=== PATIENT | female | born 1960 | race Caucasian/White ===

== ENCOUNTER 2018-10-27 23:14 | Observation (INO) ==
[2018-10-27] MEDS ORDERED: 0.9 % Sodium Chloride 1,000 ML IVC ONE (23:57)
--- NOTE | 2018-10-28 00:22 | Emergency Department Note ---
Disposition Clinical Impression: Hypercalcemia, Hyponatremia, Tobacco abuse Disposition: Admitted As Inpatient Condition: Fair Referrals: NONE,PCP [Non-Partnered Physician] - Forms: ED Satisfaction Letter Time of Disposition: 02:39 General Adult HPI - General Chief complaint: ED Recheck/Abnormal Lab/Rx Stated complaint: sent by PCP for abnormal labs Time Seen by Provider: 10/27/18 23:55 Source: patient Mode of arrival: ambulatory Limitations: no limitations Nursing Notes Reviewed: Yes Vital Signs Reviewed: Yes - History of Present Illness HPI Narrative: 58-year-old female persists for evaluation of abnormal labs. Patient states that her calcium was elevated as well as her sodium being low. Patient had routine labs obtained by her PCP. Patient was told to go to the ER. Patient states that over the past 3 days she has had generalized fatigue. States that today she is actually feeling better after receiving a B12 shot. Patient denies any chest pain or shortness of breath. No abdominal pain. States she does have chronic constipation. Patient also has chronic bilateral lower rib pain. States there is no recent change in medications. Patient does state that she has had unintentional weight loss of 23 pounds over the past couple months. No fevers. Patient is on hydrochlorothiazide and has been taking chronically for years. Pain Scale: 0 - Related Data Allergies Allergy/AdvReac Type Severity Reaction Status Date / Time No Known Allergies Allergy Verified 10/27/18 23:17 All systems ED: reviewed and negative except as stated. Cardiovascular: Denies: chest pain Respiratory: Denies: cough, dyspnea Gastrointestinal: Denies: abdominal pain, nausea, vomiting Past Medical History - Past Medical History Source: patient Medical history: Reports: diabetes, GERD, hypertension Psychiatric history: Reports: anxiety, panic disorder - Social History Smoking Status: Current every day smoker Alcohol use: Reports: none Drug use: Reports: none Physical Exam - General Limitations: no limitations General appearance: alert, in no apparent distress - Head Head exam: atraumatic, normocephalic, normal inspection - Eye Eye exam: Present: normal appearance, PERRL, EOMI - ENT ENT exam: normal exam, normal oropharynx, mucous membranes moist - Neck Neck exam: Present: normal inspection - Chest Chest inspection: Present: normal inspection. Absent: symmetric chest wall rise - Respiratory Respiratory exam: Present: normal lung sounds bilaterally. Absent: respiratory distress - Cardiovascular Cardiovascular exam: Present: regular rate, normal rhythm. Absent: normal heart sounds - Abdominal Exam Abdominal exam: Present: soft, Non-Tender - Extremities Exam Extremities exam: Present: normal inspection. Absent: pedal edema - Back Exam Back exam: Present: normal inspection - Neurological Exam Neurological exam: Present: alert, oriented X3, CN II-XII intact - Skin Skin exam: Present: warm, dry, intact, normal color Course Course Narrative: Patient seen and examined. Patient appears be no acute distress. Will obtain basic labs including EKG as well as a chest x-ray. Disposition pending. - Reevaluation(s) Reevaluation #1: Patient seen and examined. Patient's ED course discussed. Time: 01:37 Reevaluation #2: Ultimately the patient stated that she wanted to go home. Patient is receiving a second liter of fluids. Patient case was discussed with the hospitalist who also agree that the patient should be admitted for continued evaluation and further workup for the hypercalcemia. Patient is not symptomatic but it is notably high. Patient ultimately is agreeable with admission Time: 02:36 Vital Signs Temperature 98.6 F 10/27/18 23:17 Pulse Rate 102 10/27/18 23:17 Respiratory Rate 20 10/27/18 23:17 Blood Pressure 179/91 10/27/18 23:17 O2 Sat by Pulse Oximetry 93 10/27/18 23:17 Temperature 98.6 F 10/27/18 23:17 Pulse Rate 108 10/28/18 00:37 Respiratory Rate 20 10/28/18 00:37 Blood Pressure 170/89 10/28/18 00:37 O2 Sat by Pulse Oximetry 100 10/28/18 00:37 Oxygen Delivery Oxygen Delivery Room Air Medical Decision Making - [facility] Narrative Medical decision making narrative: Patient presented for abnormal labs. Noted to be hypercalcemic. Patient is fluid resuscitated with IV crystalloid. Patient is on hydrochlorothiazide does have mild hyponatremia as well. Patient did get a baseline screening chest x- ray given concerns of possible malignancy cause of her hypercalcemia given her unintentional weight loss. Patient otherwise has been asymptomatic. Planing of constipation is been there for months. Patient EKG shows no acute abnormaliti es. Patient wanted to go home however given the elevated calcium level did recommend admission and consult with the hospitalists. Patient is agreeable with admission. - Lab Data Lab results reviewed: Yes I reviewed the patient's lab results. Result diagrams: 10/28/18 00:16 10/28/18 00:16 Lab Results 10/28/18 10/28/18 10/28/18 Range/Units 00:16 00:16 00:16 WBC 8.8 (4.3-11.1) K/mcL RBC 4.47 (3.82-4.97) M/mcL Hgb 14.0 (11.5-15.4) g/dL Hct 40.1 (35.3-44.9) % MCV 89.7 (83.0-100.0) fL MCH 31.3 (28.0-33.3) pg MCHC 34.9 (31.6-35.5) g/dL RDW 12.7 (11.5-14.5) % Plt Count 345 (140-400) K/mcL MPV 9.7 (9.4-12.4) fL Immature Gran % 0.3 (0-4) % Seg Neutrophils % 82.7 % Lymphocytes % 11.5 % Monocytes % 5.4 % Eosinophils % 0.0 % Basophils % 0.1 % Neutrophils # 7.3 (1.6-8.9) K/mcL Lymphocytes # 1.0 (0.6-4.6) K/mcL Monocytes # 0.5 (0.0-1.3) K/mcL Eosinophils # 0.0 (0.0-0.6) K/mcL Basophils # 0.0 (0.0-0.2) K/mcL Immature Plt Fraction 1.7 (1.1-6.1) % Sodium 131 L (136-145) mEq/L Potassium 3.2 L (3.5-5.1) mEq/L Chloride 96 L (98-107) mEq/L Carbon Dioxide 26 (23-29) mEq/L BUN 16 (6-20) mg/dL Creatinine 0.69 (0.60-1.20) mg/dL Est GFR ( Amer) > 60 (> 60) Est GFR (Non-Af Amer) > 60 (> 60) BUN/Creatinine Ratio 23 (6-26) Glucose 155 H (70-105) mg/dL Calculated Osmolality 276 L (280-300) Calcium 13.2 H* (8.6-10.3) mg/dL Venous Ioniz Calcium (1.15-1.35) mmol/L Magnesium 2.0 (1.6-2.6) mg/dL Total Bilirubin 0.6 (0.3-1.0) mg/dL AST 87 H (13-39) Units/L ALT 28 (7-52) Units/L Alkaline Phosphatase 242 H (34-104) Units/L Serum Total Protein 7.4 (6.4-8.9) g/dL Albumin 4.2 (3.5-5.7) g/dL Globulin 3.2 (2.4-3.5) g/dL Albumin/Globulin Ratio 1.3 (1.1-2.2) PTH Intact (10.0-65.0) pg/ml Urine Color (Yellow) Urine Clarity (Clear) Urine pH (5.0-8.0) pH Units Ur Specific [employer] (1.010-1.025) Urine Protein (Neg-Trace) mg/dL Urine Glucose (UA) (Normal) mg/dL Urine Ketones (Negative) mg/dL Urine Blood (Negative) Urine Nitrite (Negative) Urine Bilirubin (Negative) Urine Urobilinogen (Normal) mg/dL Ur Leukocyte Esterase (Negative) Urine Microscopic WBC (0-3) per hpf Ur Squamous Epith Cells (None-Few) per lpf Urine Bacteria (None-Few) per hpf Hyaline Casts (None-Few) per lpf Ur Culture Indicated? (NO) 10/28/18 10/28/18 10/28/18 Range/Units 00:16 00:36 01:41 WBC (4.3-11.1) K/mcL RBC (3.82-4.97) M/mcL Hgb (11.5-15.4) g/dL Hct (35.3-44.9) % MCV (83.0-100.0) fL MCH (28.0-33.3) pg MCHC (31.6-35.5) g/dL RDW (11.5-14.5) % Plt Count (140-400) K/mcL MPV (9.4-12.4) fL Immature Gran % (0-4) % Seg Neutrophils % % Lymphocytes % % Monocytes % % Eosinophils % % Basophils % % Neutrophils # (1.6-8.9) K/mcL Lymphocytes # (0.6-4.6) K/mcL Monocytes # (0.0-1.3) K/mcL Eosinophils # (0.0-0.6) K/mcL Basophils # (0.0-0.2) K/mcL Immature Plt Fraction (1.1-6.1) % Sodium (136-145) mEq/L Potassium (3.5-5.1) mEq/L Chloride (98-107) mEq/L Carbon Dioxide (23-29) mEq/L BUN (6-20) mg/dL Creatinine (0.60-1.20) mg/dL Est GFR ( Amer) (> 60) Est GFR (Non-Af Amer) (> 60) BUN/Creatinine Ratio (6-26) Glucose (70-105) mg/dL Calculated Osmolality (280-300) Calcium (8.6-10.3) mg/dL Venous Ioniz Calcium 1.64 H (1.15-1.35) mmol/L Magnesium (1.6-2.6) mg/dL Total Bilirubin (0.3-1.0) mg/dL AST (13-39) Units/L ALT (7-52) Units/L Alkaline Phosphatase (34-104) Units/L Serum Total Protein (6.4-8.9) g/dL Albumin (3.5-5.7) g/dL Globulin (2.4-3.5) g/dL Albumin/Globulin Ratio (1.1-2.2) PTH Intact 3.0 L (10.0-65.0) pg/ml Urine Color Yellow (Yellow) Urine Clarity Cloudy A (Clear) Urine pH 6.0 (5.0-8.0) pH Units Ur Specific [employer] 1.011 (1.010-1.025) Urine Protein Negative (Neg-Trace) mg/dL Urine Glucose (UA) Normal (Normal) mg/dL Urine Ketones Negative (Negative) mg/dL Urine Blood Negative (Negative) Urine Nitrite Negative (Negative) Urine Bilirubin Negative (Negative) Urine Urobilinogen Normal (Normal) mg/dL Ur Leukocyte Esterase Negative (Negative) Urine Microscopic WBC 0-3 (0-3) per hpf Ur Squamous Epith Cells Many H (None-Few) per lpf Urine Bacteria None Seen (None-Few) per hpf Hyaline Casts None Seen (None-Few) per lpf Ur Culture Indicated? NO (NO) - Radiology Data Radiology results reviewed: Yes I reviewed the patient's radiology results. Chest X-Ray 10/28/18 00:19 IMPRESSION: No evidence of acute cardiopulmonary disease. D/ / Gelacio Coyne MD / Gelacio Coyne MD Interpreting Provider: Gelacio Coyne MD - EKG Data EKG #1 EKG attestation: Yes I reviewed and interpreted this EKG. EKG shows normal: sinus rhythm Rate: normal Rhythm: NSR [place]/QRS: left axis deviation, RBBB T wave inversions noted in: III, aVR, v1, v2 Interpretation: no acute changes, nonspecific ST-T wave changes S.B.A.R. - S.B.A.R. Situation: Demographics Background: Presenting Complaint Assessment: Vital Signs, Course and respsone to treatment, Patient/Family Expectation Recommendation: Barrier(s) to disposition, Recommendation based on pending studies, treatments, or consults S.B.A.R. Report Given to: Dr. Brito SArjunBArjunAEdie Repor Time: 02:37
[2018-10-28 00:38] LABS: VBG Ionized Calcium 1.64 mmol/L (1.15-1.35)
[2018-10-28 00:48] LABS: Basophils % 0.1 %; Hematocrit 40.1 % (35.3-44.9); Immature Granulocytes % 0.3 % (0-4); Immature Platelets 1.7 % (1.1-6.1); Lymphocytes % 11.5 %; Mean Corpuscular HGB Conc 34.9 g/dL (31.6-35.5); Mean Corpuscular Hemoglobin 31.3 pg (28.0-33.3); Mean Corpuscular Volume 89.7 fL (83.0-100.0); Mean Platelet Volume 9.7 fL (9.4-12.4); Monocytes # 0.5 K/mcL (0.0-1.3); Monocytes % 5.4 %; Neutrophils # 7.3 K/mcL (1.6-8.9); Platelet Count 345 K/mcL (140-400); Red Blood Count 4.47 M/mcL (3.82-4.97); Red Cell Distribution Width 12.7 % (11.5-14.5); Segmented Neutrophils % 82.7 %
[2018-10-28 01:02] LABS: Alanine Aminotransferase 28 Units/L (7-52); Albumin 4.2 g/dL (3.5-5.7); Albumin/Globulin Ratio 1.3 (1.1-2.2); Alkaline Phosphatase 242 Units/L (34-104); Aspartate Amino Transferase 87 Units/L (13-39); BUN/Creatinine Ratio 23 (6-26); Bilirubin,Total 0.6 mg/dL (0.3-1.0); Blood Urea Nitrogen 16 mg/dL (6-20); Calcium 13.2 mg/dL (8.6-10.3); Carbon Dioxide 26 mEq/L (23-29); Chloride 96 mEq/L (98-107); Globulin 3.2 g/dL (2.4-3.5); Glucose 155 mg/dL (70-105); Osmolality,Calculated 276 (280-300); Potassium 3.2 mEq/L (3.5-5.1); Sodium 131 mEq/L (136-145); Total Protein 7.4 g/dL (6.4-8.9); eGFR For Non-African Americans > 60 (> 60)
[2018-10-28] MEDS ORDERED: Potassium Chloride Elixir 20 MEQ/15 ML UDC PO ONE (01:04)
[2018-10-28] MEDS ORDERED: 0.9 % Sodium Chloride 1,000 ML IVC ONE (01:57)
[2018-10-28 02:00] LABS: Bacteria,Urine None Seen per hpf (None-Few); Bilirubin,Urine Negative (Negative); Blood,Urine Negative (Negative); Clarity,Urine Cloudy (Clear); Color,Urine Yellow (Yellow); Glucose,Urine (UA) Normal (Normal); Hyaline Casts,Urine None Seen per lpf (None-Few); Ketones,Urine Negative (Negative); Leukocyte Esterase,Urine Negative (Negative); Nitrite,Urine Negative (Negative); Protein,Urine Negative (Neg-Trace); Specific Gravity,Urine 1.011 (1.010-1.025); Squamous Epithelial Cell,Urine Many per lpf (None-Few); Urobilinogen,Urine Normal (Normal); WBC,Urine 0-3 per hpf (0-3)
[2018-10-28] MEDS ORDERED: Nicotine 21 MG PATCH.TD24 TD ONE (02:37)
--- NOTE | 2018-10-28 03:21 | Emergency Department Note ---
Disposition Clinical Impression: Hypercalcemia, Hyponatremia, Tobacco abuse Disposition: Admitted As Inpatient Condition: Fair Time of Disposition: 02:39 General Adult HPI - General Chief complaint: ED Recheck/Abnormal Lab/Rx Stated complaint: sent by PCP for abnormal labs Time Seen by Provider: 10/27/18 23:55 Source: patient Mode of arrival: ambulatory Limitations: no limitations Nursing Notes Reviewed: Yes Vital Signs Reviewed: Yes - History of Present Illness Pain Scale: 0 - Related Data Allergies Allergy/AdvReac Type Severity Reaction Status Date / Time No Known Allergies Allergy Verified 10/27/18 23:17 Cardiovascular: Denies: chest pain Respiratory: Denies: cough, dyspnea Gastrointestinal: Denies: abdominal pain, nausea, vomiting Past Medical History - Past Medical History Medical history: Reports: diabetes, GERD, hypertension Psychiatric history: Reports: anxiety, panic disorder - Social History Smoking Status: Current every day smoker Alcohol use: Reports: none Drug use: Reports: none Physical Exam - General Limitations: no limitations General appearance: alert, in no apparent distress Course Vital Signs Temperature 98.6 F 10/27/18 23:17 Pulse Rate 102 10/27/18 23:17 Respiratory Rate 20 10/27/18 23:17 Blood Pressure 179/91 10/27/18 23:17 O2 Sat by Pulse Oximetry 93 10/27/18 23:17 Temperature 98.6 F 10/27/18 23:17 Pulse Rate 88 10/28/18 02:00 Respiratory Rate 20 10/28/18 02:00 Blood Pressure 154/89 10/28/18 02:00 O2 Sat by Pulse Oximetry 98 10/28/18 02:00 Oxygen Delivery Oxygen Delivery Room Air Medical Decision Making - Lab Data Lab results reviewed: Yes I reviewed the patient's lab results. Result diagrams: 10/28/18 00:16 10/28/18 00:16 Lab Results 10/28/18 10/28/18 10/28/18 Range/Units 00:16 00:16 00:16 WBC 8.8 (4.3-11.1) K/mcL RBC 4.47 (3.82-4.97) M/mcL Hgb 14.0 (11.5-15.4) g/dL Hct 40.1 (35.3-44.9) % MCV 89.7 (83.0-100.0) fL MCH 31.3 (28.0-33.3) pg MCHC 34.9 (31.6-35.5) g/dL RDW 12.7 (11.5-14.5) % Plt Count 345 (140-400) K/mcL MPV 9.7 (9.4-12.4) fL Immature Gran % 0.3 (0-4) % Seg Neutrophils % 82.7 % Lymphocytes % 11.5 % Monocytes % 5.4 % Eosinophils % 0.0 % Basophils % 0.1 % Neutrophils # 7.3 (1.6-8.9) K/mcL Lymphocytes # 1.0 (0.6-4.6) K/mcL Monocytes # 0.5 (0.0-1.3) K/mcL Eosinophils # 0.0 (0.0-0.6) K/mcL Basophils # 0.0 (0.0-0.2) K/mcL Immature Plt Fraction 1.7 (1.1-6.1) % Sodium 131 L (136-145) mEq/L Potassium 3.2 L (3.5-5.1) mEq/L Chloride 96 L (98-107) mEq/L Carbon Dioxide 26 (23-29) mEq/L BUN 16 (6-20) mg/dL Creatinine 0.69 (0.60-1.20) mg/dL Est GFR ( Amer) > 60 (> 60) Est GFR (Non-Af Amer) > 60 (> 60) BUN/Creatinine Ratio 23 (6-26) Glucose 155 H (70-105) mg/dL Calculated Osmolality 276 L (280-300) Calcium 13.2 H* (8.6-10.3) mg/dL Venous Ioniz Calcium (1.15-1.35) mmol/L Magnesium 2.0 (1.6-2.6) mg/dL Total Bilirubin 0.6 (0.3-1.0) mg/dL AST 87 H (13-39) Units/L ALT 28 (7-52) Units/L Alkaline Phosphatase 242 H (34-104) Units/L Serum Total Protein 7.4 (6.4-8.9) g/dL Albumin 4.2 (3.5-5.7) g/dL Globulin 3.2 (2.4-3.5) g/dL Albumin/Globulin Ratio 1.3 (1.1-2.2) PTH Intact (10.0-65.0) pg/ml Urine Color (Yellow) Urine Clarity (Clear) Urine pH (5.0-8.0) pH Units Ur Specific [place] (1.010-1.025) Urine Protein (Neg-Trace) mg/dL Urine Glucose (UA) (Normal) mg/dL Urine Ketones (Negative) mg/dL Urine Blood (Negative) Urine Nitrite (Negative) Urine Bilirubin (Negative) Urine Urobilinogen (Normal) mg/dL Ur Leukocyte Esterase (Negative) Urine Microscopic WBC (0-3) per hpf Ur Squamous Epith Cells (None-Few) per lpf Urine Bacteria (None-Few) per hpf Hyaline Casts (None-Few) per lpf Ur Culture Indicated? (NO) 10/28/18 10/28/18 10/28/18 Range/Units 00:16 00:36 01:41 WBC (4.3-11.1) K/mcL RBC (3.82-4.97) M/mcL Hgb (11.5-15.4) g/dL Hct (35.3-44.9) % MCV (83.0-100.0) fL MCH (28.0-33.3) pg MCHC (31.6-35.5) g/dL RDW (11.5-14.5) % Plt Count (140-400) K/mcL MPV (9.4-12.4) fL Immature Gran % (0-4) % Seg Neutrophils % % Lymphocytes % % Monocytes % % Eosinophils % % Basophils % % Neutrophils # (1.6-8.9) K/mcL Lymphocytes # (0.6-4.6) K/mcL Monocytes # (0.0-1.3) K/mcL Eosinophils # (0.0-0.6) K/mcL Basophils # (0.0-0.2) K/mcL Immature Plt Fraction (1.1-6.1) % Sodium (136-145) mEq/L Potassium (3.5-5.1) mEq/L Chloride (98-107) mEq/L Carbon Dioxide (23-29) mEq/L BUN (6-20) mg/dL Creatinine (0.60-1.20) mg/dL Est GFR ( Amer) (> 60) Est GFR (Non-Af Amer) (> 60) BUN/Creatinine Ratio (6-26) Glucose (70-105) mg/dL Calculated Osmolality (280-300) Calcium (8.6-10.3) mg/dL Venous Ioniz Calcium 1.64 H (1.15-1.35) mmol/L Magnesium (1.6-2.6) mg/dL Total Bilirubin (0.3-1.0) mg/dL AST (13-39) Units/L ALT (7-52) Units/L Alkaline Phosphatase (34-104) Units/L Serum Total Protein (6.4-8.9) g/dL Albumin (3.5-5.7) g/dL Globulin (2.4-3.5) g/dL Albumin/Globulin Ratio (1.1-2.2) PTH Intact 3.0 L (10.0-65.0) pg/ml Urine Color Yellow (Yellow) Urine Clarity Cloudy A (Clear) Urine pH 6.0 (5.0-8.0) pH Units Ur Specific [place] 1.011 (1.010-1.025) Urine Protein Negative (Neg-Trace) mg/dL Urine Glucose (UA) Normal (Normal) mg/dL Urine Ketones Negative (Negative) mg/dL Urine Blood Negative (Negative) Urine Nitrite Negative (Negative) Urine Bilirubin Negative (Negative) Urine Urobilinogen Normal (Normal) mg/dL Ur Leukocyte Esterase Negative (Negative) Urine Microscopic WBC 0-3 (0-3) per hpf Ur Squamous Epith Cells Many H (None-Few) per lpf Urine Bacteria None Seen (None-Few) per hpf Hyaline Casts None Seen (None-Few) per lpf Ur Culture Indicated? NO (NO) - Radiology Data Radiology results reviewed: Yes I reviewed the patient's radiology results. Chest X-Ray 10/28/18 00:19 IMPRESSION: No evidence of acute cardiopulmonary disease. D/ / Gelacio Coyne MD / Gelacio Coyne MD Interpreting Provider: Gelacio Coyne MD - EKG Data EKG #1 EKG attestation: Yes I reviewed and interpreted this EKG. EKG results narrative: EKG shows a sinus tachycardia with ventricular rate of 107. Right bundle branch block. No prior EKG for comparison. Attestation Statement - Attestation Attestation: I, Shorty Young MD, personally evaluated this patient and discussed their management with the resident physician. I reviewed the resident's note and agree with the documented findings, medical decision making, and plan of care. Patient is a 58-year-old female who presents to the emergency department with a complaint of abnormal lab tests. Patient had routine lab work for her annual visit with her primary care nurse practitioner. They called her this evening and advised her that her calcium level was 14 and her sodium level was low and she needed to come to the emergency department. In has no symptoms or complaints. She does admit to some constipation which is chronic. No pain. No confusion. No known prior history of hypercalcemia. She does state that her sodium level has been low in the past and they just told her to eat more salt. On examination patient is a well-developed well-nourished well-appearing female in no acute distress. She is alert and oriented 3. There is no cyanosis or diaphoresis. Breath sounds are clear and equal bilaterally. Heart regular rate and rhythm. Abdomen soft and nontender with normal bowel sounds. No pedal edema. No gross focal neurological deficits. EKG shows a sinus tachycardia with ventricular rate of 107. Right bundle branch block. No prior EKG for comparison. Chest x-ray negative. Labs reviewed. The hospitalist, Dr. Brito, was consulted and accepted admission of the patient.
[2018-10-28 03:37] LABS: Lipase 31 Units/L (11-82)
[2018-10-28] MEDS ORDERED: Naloxone 0.4 MG/ML INJ IVP PRN (06:06)
[2018-10-28] MEDS ORDERED: 0.9 % Sodium Chloride 1,000 ML IVC SCH (06:15)
[2018-10-28] MEDS ORDERED: D5% in Water 1,000 ML IVC PRN (06:17)
[2018-10-28] MEDS ORDERED: Dextrose Gel 15 GM/37.5 ML TUBE PO PRN ×2 (06:17)
[2018-10-28] MEDS ORDERED: *HR* Dextrose 50 % in Water (Syg) 50 ML SYRINGE IVP PRN (06:17)
[2018-10-28] MEDS ORDERED: *HR* LORazepam 1 MG TABLET PO PRN (06:18)
--- NOTE | 2018-10-28 06:31 | Internal Med History&Physical ---
Date of Encounter: 10/28/18 Time of Encounter: 06:18 Internal Medicine - H&P: HPI Chief complaint: Hypercalcemia History of present illness: Ms. Montgomery is a 58 year old female with a past medical history of hypertension, diabetes, GERD who presented to the ED due to abnormal labs. Patient was referred to the ED by her primary care physician after outpatient laboratory workup revealed a elevated calcium levels. On arrival laboratory workup revealed a calcium of 13.2 with a ionized calcium of 1.64. A parathyroid hormone level was also obtained which was low 3.0. Patient is currently on hydrochlorothiazide among her other medications and several other multivitamins. She reports a 23 pound weight loss since August 09 which she attributes to modifications in her diet in the setting of recurrent belching/bloating which had been ongoing previously. Patient is a 1 pack-a-day smoker and has been smoking for over 30 years. Denies any alcohol use. Patient has history of chronic constipation for many many years. She has a history of colon polyps seen on her last colonoscopy 5 years ago with her next colonoscopy 5 years from that time period. Family history of lung cancer in her sister who is also a chronic smoker. Patient does report some fatigue. 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 Remainder of patient's laboratory workup was notable for a mild hyponatremia 131 and hypokalemia of 3.2. She also has an elevated alkaline phosphatase of 242. A chest x-ray was obtained which showed no evidence of an acute pulmonary abnormalities. Past Med Surg Social Fam HX - Past Medical History Medical history: diabetes, GERD, hypertension Additional medical history: seasonal allergies (pre-diabetic) Psychiatric history: anxiety, panic disorder - Social History Smoking Status: Current every day smoker Alcohol use: none Drug use: none - Family History Mother History Unknown: Yes Adopted: No Living Status: Age at : 68 Cause of : Stroke Hx Family Cardiac Disorders: Yes Hx Family Medical Disorders: Yes (previous stroke) Internal Medicine - H&P: Meds Aspirin [Adult Aspirin] 81 mg PO DAILY 10/28/18 [History] Brompheniramine/Pseudoephed/Dm [Bromfed Dm Cough Syrup] 5 ml PO HS 10/28/18 [Hi story] Docusate [Colace] 3 tab PO HS 10/28/18 [History] Lisinopril [Zestril] 5 mg PO DAILY 10/28/18 [History] Montelukast [Singulair] 10 mg PO HS 10/28/18 [History] Omeprazole [PriLOSEC] 40 mg PO DAILY 10/28/18 [History] metFORMIN 1,000 mg PO DAILY 10/28/18 [History] Allergy/AdvReac Type Severity Reaction Status Date / Time No Known Allergies Allergy Verified 10/27/18 23:17 All Systems PM: A 10-system review of systems was performed and is negative for pertinent findings except as documented above in the HPI. - Constitutional Constitutional: no chills, no fever(s), no night sweats - EENT Eyes: no change in vision, no discharge, no pain, no photophobia Ears: no ear discharge, no ear pain, no tinnitus Nose, mouth and throat: no dysphagia, no nasal discharge, no neck pain, no sore throat - Cardiovascular Cardiovascular ROS IM: no chest pain, no diaphoresis, no dyspnea, no lightheadedness, no palpitations, no syncope - Respiratory Respiratory: no cough, no dyspnea, no wheezing, no excessive phlegm production - Gastrointestinal Gastrointestinal: no abdominal pain, no diarrhea, no hematemesis, no hematochezia, no melena, no nausea, no vomiting - Genitourinary Genitourinary: no change in urinary stream, no dysuria, no flank pain, no hemat uria - Musculoskeletal Musculoskeletal ROS IM: no numbness, no tingling - Integumentary Integumentary IM: no rash, no unusual bruising - Neurological Neurological ROS: no confusion, no convulsions, no focal weakness, no numbness, no tingling, no tremor(s) - Hematologic/Lymphatic Hematologic/Lymphatic: no easy bruising - Constitutional Vitals: Temp Pulse Resp BP Pulse Ox 98 F 96 18 150/86 99 10/28/18 04:42 10/28/18 04:42 10/28/18 04:42 10/28/18 04:42 10/28/18 04:42 Exam: General: Alert and oriented 3 lying in bed in no acute distress Skin:Normal color, no rash, no lesions. HEENT:EOM, pupils equal, round and reactive. Cardiovascular:Normal S1 & S2, no rubs, murmurs or gallops. No JVD. Pulse regular. Lungs:Normal breath sounds, no wheezes or crackles. Abdomen:Soft, non-tender, no rigidity. Extremities:No deformity, no edema or tenderness, no joint swelling or clubbing. Neurological:Normal cognition and motor skills. Pulses:Carotid and radial pulses normal +2. Rest of the physical exam is non contributory Internal Med - H&P Results - Labs CBC & Chem 7: 10/28/18 00:16 10/28/18 00:16 Labs: Short CBC 10/28/18 Range/Units 00:16 WBC 8.8 (4.3-11.1) K/mcL Hgb 14.0 (11.5-15.4) g/dL Hct 40.1 (35.3-44.9) % Plt Count 345 (140-400) K/mcL Neutrophils # 7.3 (1.6-8.9) K/mcL BMP 10/28/18 00:16 Sodium 131 L Potassium 3.2 L Chloride 96 L Carbon Dioxide 26 BUN 16 Creatinine 0.69 Glucose 155 H Calcium 13.2 H* Liver Function 10/28/18 Range/Units 00:16 Total Bilirubin 0.6 (0.3-1.0) mg/dL AST 87 H (13-39) Units/L ALT 28 (7-52) Units/L Alkaline Phosphatase 242 H (34-104) Units/L Albumin 4.2 (3.5-5.7) g/dL Urine 10/28/18 Range/Units 01:41 Urine Color Yellow (Yellow) Urine Clarity Cloudy A (Clear) Urine pH 6.0 (5.0-8.0) pH Units Ur Specific [place] 1.011 (1.010-1.025) Urine Protein Negative (Neg-Trace) mg/dL Urine Glucose (UA) Normal (Normal) mg/dL - Impressions ITS Impressions Chest X-Ray 10/28/18 00:19 IMPRESSION: No evidence of acute cardiopulmonary disease. D/ / Gelacio Coyne MD / Gelacio Coyne MD Interpreting Provider: Gelacio Coyne MD - Assessment and Plan (1) Hypercalcemia Current Visit: Yes Status: Acute Assessment and plan: Patient presents with hypercalcemia of 13.1 in the setting of a suppressed parathyroid hormone level. She does report symptoms of belching and bloating ongoing for several months. She does have a history of constipation, however, this appears to be chronic. This may possibly be secondary to hydroc hlorothiazide. However cannot rule out malignancy given patient's report of unintentional weight loss and smoking history. Chest x-ray did not reveal any evidence of lung mass. -Continue maintenance fluids for now -We will reassess calcium level in the morning -We will hold hydrochlorothiazide for now -Appreciate oncology input and assessment of etiology moving forward. (2) Hypertension Current Visit: Yes Status: Acute Assessment and plan: History of hypertension. We will hold hydrochlorothiazide. Continue with lisinopril Qualifiers: Hypertension type: essential hypertension Qualified Code(s): I10 - Essential (primary) hypertension (3) Hyponatremia Current Visit: Yes Status: Acute Assessment and plan: Mild hyponatremia 131. Patient received several liters of fluid boluses. We will reassess. (4) Diabetes Current Visit: Yes Status: Acute Assessment and plan: History of type 2 diabetes. Currently on metformin. We will hold metformin. We will start patient on blood glucose checks and sliding scale insulin. 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 Patient counseled on smoking cessation. (6) DVT prophylaxis Current Visit: Yes Status: Acute Assessment and plan: Ambulates ad jordan. - Time Spent With Patient Total time spent is greater than 50% in coordination of care (as documented) at patient's floor/unit and/or counseling patient:
[2018-10-28] MEDS ORDERED: Isovue-370 500 ML BOTTLE IVP ONE ×2 (07:30)
[2018-10-28] MEDS ORDERED: *HR* LORazepam 0.5 MG TABLET PO ONE (07:56)
[2018-10-28] MEDS: Aspirin Enteric Coated 81 MG Tablet PO SCH (08:04)
[2018-10-28 08:37] LABS: Hematocrit 38.7 % (35.3-44.9); Hemoglobin 13.3 g/dL (11.5-15.4); Mean Corpuscular HGB Conc 34.4 g/dL (31.6-35.5); Mean Corpuscular Hemoglobin 31.3 pg (28.0-33.3); Mean Corpuscular Volume 91.1 fL (83.0-100.0); Mean Platelet Volume 9.1 fL (9.4-12.4); Platelet Count 316 K/mcL (140-400); Red Blood Count 4.25 M/mcL (3.82-4.97); Red Cell Distribution Width 12.7 % (11.5-14.5)
--- NOTE | 2018-10-28 08:47 | Oncology Inp Consult Note ---
Date of Encounter: 10/28/18 Time of Encounter: 10:30 Assessment and Plan (1) Malignancy associated hypercalcemia Status: Acute Assessment and plan: Continue with hydration with normal saline at 150 mL per hour until time of discharge. I would like to see her calcium level improved prior to discharge as well. The current plans to keep her overnight which I agree with. I will arrange for 1 dose of zoledronic acid 1 today. (2) Liver masses Status: Acute Assessment and plan: I met with the patient this morning prior to imaging. I discussed the need for CT imaging to look for occult malignancy. During my dictation, her CT imaging was completed and revealed multifocal metastatic disease involving the liver. This is the cause of her hypercalcemia and weight loss as well as her dyspepsia. I recommend CT-guided biopsy of the liver. This may be done as an outpatient. Source of malignancy is undetermined at this time. Recent mammography was negative. There is no primary lung lesion. This is likely a gastrointestinal primary tumor originating from the stomach, small bowel or possibly colon. A liver primary could also be a possibility. Biopsy will shed light on this. I will return to her room today and discuss these results with her. An addendum will be added after this discussion. I returned to review her imaging results. I explained to the patient she has multifocal liver lesions concerning for a metastatic process. As it is the Tuesday of the long weekend, we will not be able to obtain a CT-guided biopsy in all ranges for an outpatient on Tuesday to Tuesday or . I did explain that this is likely not a curable cancer. Certainly this will depend upon histology. I explained that it is likely that her tumor originated in the gastrointestinal tract although again this is not entirely clear until we get a biopsy. We did not go into prognosis is I do not have a biopsy and therapy will also be depend upon biopsy results. I spent 35 minutes speaking with the patient and family in reviewing these results and will offering words of encouragement. She was very distraught. I will arrange for outpatient follow-up. We will otherwise sign off. - Data of Consult Requesting Physician: Paige English MD Primary Care Provider: Terra De La Garza CNP - Consult Narrative Reason for consult: Hypercalcemia History of present illness: Ms. Montgomery is a very pleasant 58-year-old woman who for the past week has felt fatigued and tired. In addition to this, she has been dealing with severe constipation with associated bloating for this period of time as well. She did not have a bowel movement for nearly one week and on Tuesday, she was able to evacuate her bowels with stool softeners. She also admits to chronic dyspepsia that has worsened over the past month or so. She admits to difficulty swallowi ng pills but denies dysphagia or odynophagia. Medications make her "gag". She has been taken Zantac, Prilosec as well as Tums frequently to help with her heartburn. She is a chronic smoker but denies any new shortness of breath, cough. She has had a recent URI which has improved. She endorses 17 pound weight loss over the past 2 months. Patient had routine blood work obtained late this last week which revealed elevated calcium. It is recommended she proceed to the emergency department for further evaluation. Patient has received hydration. PTH was appropriately suppressed. I been asked to aid in workup of her hypercalcemia. I request a CT of the chest, abdomen and pelvis as well as a paraproteinemia evaluation. These results are pending. She did recently complete mammography and is up-to-date with age-appropriate screening tests otherwise. She is very anxious during our interview. She is very tangential. She has noted she has vacation to the [place] November 05- she is not with interrupted as well as a working conference in [place] November 19. 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) - Family History Mother History Unknown: Yes Adopted: No Living Status: Age at : 68 Cause of : Stroke Hx Family Cardiac Disorders: Yes Hx Family Medical Disorders: Yes (previous stroke) Medications and Allergies Aspirin [Adult Aspirin] 81 mg PO DAILY 10/28/18 [History] Brompheniramine/Pseudoephed/Dm [Bromfed Dm Cough Syrup] 5 ml PO HS 10/28/18 [History] Docusate [Colace] 3 tab PO HS 10/28/18 [History] Lisinopril [Zestril] 5 mg PO DAILY 10/28/18 [History] Montelukast [Singulair] 10 mg PO HS 10/28/18 [History] Omeprazole [PriLOSEC] 40 mg PO DAILY 10/28/18 [History] metFORMIN 1,000 mg PO DAILY 10/28/18 [History] Allergy/AdvReac Type Severity Reaction Status Date / Time No Known Allergies Allergy Verified 10/27/18 23:17 All systems: reviewed and no additional remarkable complaints except as stated Constitutional: Present: fatigue, weight loss Eyes: Present: as per HPI Ears: Present: as per HPI Nose, mouth and throat: Present: dry mouth, nasal discharge Breasts: Present: as per HPI Cardiovascular: Present: as per HPI Respiratory: Present: as per HPI Gastrointestinal: Present: belching, bloating, constipation Musculoskeletal: Present: as per HPI Neurological: Present: as per HPI Endocrine: Present: as per HPI Hematologic/Lymphatic: Present: as per HPI Oncology - Exam - Constitutional General appearance: average body habitus, no acute distress - Head Head exam: Present: atraumatic, normal inspection, normocephalic - Eye Eye exam: Present: EOMI, normal appearance, conjuntiva pink, sclera anicteric - ENT ENT exam: Present: mucous membranes moist, normal oropharynx - Neck Neck exam: Present: full ROM, normal inspection - Respiratory Respiratory exam: Present: CTAB - Cardiovascular Cardiovascular exam: Present: RRR - GI/Abdominal GI/Abdominal exam: Present: normal bowel sounds, soft - Extremities Exam Extremities exam: Present: normal inspection - Back Exam Back exam: Present: normal inspection - Neurological Exam Neurological exam: Present: alert, CN II-XII intact, oriented X3 Oncology Inpatient Results Labs: Laboratory Results - last 24 hr 10/28/18 10/28/18 10/28/18 00:16 00:16 00:16 WBC 8.8 RBC 4.47 Hgb 14.0 Hct 40.1 MCV 89.7 MCH 31.3 MCHC 34.9 RDW 12.7 Plt Count 345 MPV 9.7 Immature Gran % 0.3 Seg Neutrophils % 82.7 Lymphocytes % 11.5 Monocytes % 5.4 Eosinophils % 0.0 Basophils % 0.1 Neutrophils # 7.3 Lymphocytes # 1.0 Monocytes # 0.5 Eosinophils # 0.0 Basophils # 0.0 Immature Plt Fraction 1.7 Sodium 131 L Potassium 3.2 L Chloride 96 L Carbon Dioxide 26 BUN 16 Creatinine 0.69 Est GFR ( Amer) > 60 Est GFR (Non-Af Amer) > 60 BUN/Creatinine Ratio 23 Glucose 155 H Calculated Osmolality 276 L Calcium 13.2 H* Venous Ioniz Calcium Magnesium 2.0 Total Bilirubin 0.6 AST 87 H ALT 28 Alkaline Phosphatase 242 H Serum Total Protein 7.4 Albumin 4.2 Globulin 3.2 Albumin/Globulin Ratio 1.3 Lipase 31 PTH Intact Urine Color Urine Clarity Urine pH Ur Specific [place] Urine Protein Urine Glucose (UA) Urine Ketones Urine Blood Urine Nitrite Urine Bilirubin Urine Urobilinogen Ur Leukocyte Esterase Urine Microscopic WBC Ur Squamous Epith Cells Urine Bacteria Hyaline Casts Ur Culture Indicated? 10/28/18 10/28/18 10/28/18 00:16 00:36 01:41 WBC RBC Hgb Hct MCV MCH MCHC RDW Plt Count MPV Immature Gran % Seg Neutrophils % Lymphocytes % Monocytes % Eosinophils % Basophils % Neutrophils # Lymphocytes # Monocytes # Eosinophils # Basophils # Immature Plt Fraction Sodium Potassium Chloride Carbon Dioxide BUN Creatinine Est GFR ( Amer) Est GFR (Non-Af Amer) BUN/Creatinine Ratio Glucose Calculated Osmolality Calcium Venous Ioniz Calcium 1.64 H Magnesium Total Bilirubin AST ALT Alkaline Phosphatase Serum Total Protein Albumin Globulin Albumin/Globulin Ratio Lipase PTH Intact 3.0 L Urine Color Yellow Urine Clarity Cloudy A Urine pH 6.0 Ur Specific [place] 1.011 Urine Protein Negative Urine Glucose (UA) Normal Urine Ketones Negative Urine Blood Negative Urine Nitrite Negative Urine Bilirubin Negative Urine Urobilinogen Normal Ur Leukocyte Esterase Negative Urine Microscopic WBC 0-3 Ur Squamous Epith Cells Many H Urine Bacteria None Seen Hyaline Casts None Seen Ur Culture Indicated? NO 10/28/18 08:24 WBC 10.1 RBC 4.25 Hgb 13.3 Hct 38.7 MCV 91.1 MCH 31.3 MCHC 34.4 RDW 12.7 Plt Count 316 MPV 9.1 L Immature Gran % Seg Neutrophils % Lymphocytes % Monocytes % Eosinophils % Basophils % Neutrophils # Lymphocytes # Monocytes # Eosinophils # Basophils # Immature Plt Fraction Sodium Potassium Chloride Carbon Dioxide BUN Creatinine Est GFR ( Amer) Est GFR (Non-Af Amer) BUN/Creatinine Ratio Glucose Calculated Osmolality Calcium Venous Ioniz Calcium Magnesium Total Bilirubin AST ALT Alkaline Phosphatase Serum Total Protein Albumin Globulin Albumin/Globulin Ratio Lipase PTH Intact Urine Color Urine Clarity Urine pH Ur Specific [place] Urine Protein Urine Glucose (UA) Urine Ketones Urine Blood Urine Nitrite Urine Bilirubin Urine Urobilinogen Ur Leukocyte Esterase Urine Microscopic WBC Ur Squamous Epith Cells Urine Bacteria Hyaline Casts Ur Culture Indicated? CT OF THE CHEST WITH CONTRAST 10/28/2018 10:39 am FINDINGS: Mediastinum: No mediastinal or hilar masses. Atherosclerotic changes. No pericardial effusion. Lungs/pleura: No acute airspace disease. Scarring seen in the lung bases. No pleural effusion. No endobronchial lesion. Emphysematous changes most prominent in the upper lobes. No pulmonary mass lesion. Upper Abdomen: Numerous liver masses noted. This will be more completely described on the abdominal CT. Otherwise, unremarkable. Soft Tissues/Bones: There appear to be lytic lesions in multiple vertebral bodies. No acute fracture. Anatomic alignment. CT/CT chest w con IMPRESSION: 1. Numerous liver masses suggesting metastatic disease will be more completely described on the abdominal CT 2. Probable lytic lesions in the multiple vertebral bodies, correlate with a nuclear medicine bone scan 3. No acute abnormalities seen in the chest. Emphysematous changes noted. Consult Discharge Plan - Plan Referrals: Terra De La Garza, BLANCO [Primary Care Provider] - Inpatient Charges Provider: Dr. Kian Sharp Consult - Inpatient: [id number]
[2018-10-28] MEDS: Insulin LISPRO 300 UNITS/3 ML VIAL SQ SCH ×3 (09:08→17:30)
[2018-10-28] MEDS ORDERED: Zoledronic Acid (Zometa) 4 MG in 0.9 % Sodium Chloride 100 ML IV ONE (11:08)
--- NOTE | 2018-10-28 11:55 | Event Note ---
Date of Encounter: 10/28/18 Time of Encounter: 09:50 Patient is a 58y/o female admitted for hypercalcemia and hyponatremia. Pt underwent CT chest and abd/pelvis to rule out underlying malignancy. Imaging studies are reporting multiple liver lesions concerning for metastatic disease. Patient is seen and examined at bedside. She denies any discomfort and wishes to go home today. During my evaluation, imaging results were still pending. Oncology is on board and evaluation appreciated Will continue IV fluids and closely monitor Ca levels. restarted necessary home medications.
[2018-10-28 12:39] LABS: Magnesium 1.9 mg/dL (1.6-2.6); Phosphorous 1.5 mg/dL (2.7-4.5)
[2018-10-28 12:41] LABS: BUN/Creatinine Ratio 16 (6-26); Blood Urea Nitrogen 9 mg/dL (6-20); Calcium 12.2 mg/dL (8.6-10.3); Carbon Dioxide 25 mEq/L (23-29); Chloride 102 mEq/L (98-107); Glucose 98 mg/dL (70-105); Osmolality,Calculated 273 (280-300); Potassium 3.4 mEq/L (3.5-5.1); Sodium 132 mEq/L (136-145); eGFR For Non-African Americans > 60 (> 60)
[2018-10-28 12:56] LABS: Estimated Average Glucose 114 mg/dl; Hemoglobin A1C 5.6 %
[2018-10-28] MEDS: *HR* LORazepam 0.5 MG TABLET PO PRN (13:24)
[2018-10-29] MEDS: *HR* LORazepam 0.5 MG TABLET PO PRN ×2 (00:13→21:18)
[2018-10-29 03:23] LABS: Alanine Aminotransferase 31 Units/L (7-52); Albumin 3.9 g/dL (3.5-5.7); Albumin/Globulin Ratio 1.3 (1.1-2.2); Alkaline Phosphatase 293 Units/L (34-104); Aspartate Amino Transferase 77 Units/L (13-39); BUN/Creatinine Ratio 12 (6-26); Bilirubin,Total 0.7 mg/dL (0.3-1.0); Blood Urea Nitrogen 8 mg/dL (6-20); Calcium 11.9 mg/dL (8.6-10.3); Carbon Dioxide 25 mEq/L (23-29); Chloride 100 mEq/L (98-107); Globulin 3.1 g/dL (2.4-3.5); Glucose 106 mg/dL (70-105); Magnesium 1.9 mg/dL (1.6-2.6); Osmolality,Calculated 275 (280-300); Phosphorous 2.1 mg/dL (2.7-4.5); Potassium 3.6 mEq/L (3.5-5.1); Sodium 133 mEq/L (136-145); eGFR For Non-African Americans > 60 (> 60)
[2018-10-29] MEDS: Nicotine 21 MG PATCH.TD24 TD SCH (03:45)
[2018-10-29] MEDS ORDERED: *HR* OxyCODONE Immed Rel 5 MG TABLET PO PRN (08:33)
[2018-10-29] MEDS: 0.9 % Sodium Chloride 1,000 ML IVC SCH ×2 (09:24→17:21)
[2018-10-29] MEDS: Aspirin Enteric Coated 81 MG Tablet PO SCH (09:24)
[2018-10-29] MEDS ORDERED: Ibuprofen 600 MG TABLET PO ONE (09:52)
[2018-10-29] MEDS ORDERED: Doxycycline 100 MG CAPSULE PO ONE (09:53)
[2018-10-29] MEDS ORDERED: Ondansetron 4 MG/2 ML VIAL IVP PRN (11:24)
--- NOTE | 2018-10-29 12:39 | Internal Med Progress Note ---
Hospitalist Progress Note - Encounter Date of Encounter: 10/29/18 Time of Encounter: 12:34 - Subjective Interval History: Patient seen and examined earlier this morning with RN present at bedside. Patient reports of diffuse body pain and feels feverish this morning. She states was started on Doxycycline on Tuesday for a URI. She denies any shortness of breath, chest pain but reports of feeling extreme fatigue today. No overnight events reported Ten point ROS is negative except as listed above. - Exam Vitals: Temp Pulse Resp BP Pulse Ox 98 F 102 20 148/86 96 10/29/18 12:15 10/29/18 12:15 10/29/18 12:15 10/29/18 12:15 10/29/18 12:15 Exam: General: No acute distress, AAO x 3, appears fatigued HEENT: EOMI, NC/AT, no scleral icterus Respiratory: Clear to auscultate bilaterally, no wheezing, no rales Cardiovascular: Regular Rhythm, sinus tachycardia present, No murmurs GI: Soft, Non tender, non distended, normal bowel sounds Ext: No edema, no tenderness, positive pulses Neuro: AAO x 3, no focal deficits, CN II-XII grossly intact Rest of the clinical exam is noncontributory - Assessment and Plan (1) Liver masses Current Visit: Yes Status: Acute Assessment and Plan: Oncology input appreciated pt scheduled for a biopsy on Tuesday as per Oncologist continue pain control at this time (2) Hypercalcemia Current Visit: Yes Status: Acute Assessment and Plan: Oncology input appreciated Ca levels improving will continue IV fluids pt did receive a dose of Zoledronic acid on 10/28/18. Low grade fever and diffuse pain likely secondary to the adverse effects of Zoledronic acid I spoke with oncologist, pt already has a close follow up scheduled, pt can be discharged given the down trend of Ca levels Due to severe fatigue and pain with low grade fever, pt wishes to be discharged in am will closely monitor Ca levels (3) URI (upper respiratory infection) Current Visit: Yes Status: Acute Assessment and Plan: will continue home abx Doxycycline 10mg PO BID (4) Hyponatremia Current Visit: Yes Status: Acute Assessment and Plan: improving continue IV fluids will closely monitor (5) Hypertension Current Visit: Yes Status: Acute Assessment and Plan: BP within acceptable range continue home meds closely monitor BP (6) Tobacco abuse Current Visit: Yes Status: Acute Assessment and Plan: Smoking cessation counseling provided Nicotine supplementation provided (7) DVT prophylaxis Current Visit: Yes Status: Acute Assessment and Plan: Lovenox SQ - Time Spent with Patient Total time spent is greater than 50% in coordination of care (as documented) at patient's floor/unit and/or counseling patient: 25 - 35 minutes Plan of Care Discussed with: patient (patient/RN/consulting provider) Internal Medicine: Result - Labs CBC & Chem 7: 10/28/18 08:24 10/29/18 02:33 Labs: BMP 10/28/18 10/29/18 12:06 02:33 Sodium 132 L 133 L Potassium 3.4 L 3.6 Chloride 102 100 Carbon Dioxide 25 25 BUN 9 8 Creatinine 0.57 L 0.68 Glucose 98 106 H Calcium 12.2 H 11.9 H Liver Function 10/29/18 Range/Units 02:33 Total Bilirubin 0.7 (0.3-1.0) mg/dL AST 77 H (13-39) Units/L ALT 31 (7-52) Units/L Alkaline Phosphatase 293 H (34-104) Units/L Albumin 3.9 (3.5-5.7) g/dL Consult Discharge Plan - Plan Referrals: Terra De La Garza, BLANCO [Primary Care Provider] - (5) Hypertension Qualifiers: Hypertension type: essential hypertension Qualified Code(s): I10 - Essential (primary) hypertension
[2018-10-29] MEDS ORDERED: Ibuprofen 600 MG TABLET PO PRN (17:58)
[2018-10-29] MEDS ORDERED: *HR* Enoxaparin 30 MG/0.3 ML SYRINGE SQ SCH (18:00)
[2018-10-29] MEDS: Doxycycline 100 MG CAPSULE PO SCH (21:18)
[2018-10-30] MEDS: 0.9 % Sodium Chloride 1,000 ML IVC SCH ×2 (01:40→09:26)
[2018-10-30] MEDS: Nicotine 21 MG PATCH.TD24 TD SCH (03:28)
[2018-10-30] MEDS ORDERED: *HR* Enoxaparin 40 MG/0.4 ML SYRINGE SQ SCH (06:00)
[2018-10-30 06:49] VITALS: BP 145/83
[2018-10-30 06:52] LABS: BUN/Creatinine Ratio 16 (6-26); Blood Urea Nitrogen 11 mg/dL (6-20); Calcium 9.5 mg/dL (8.6-10.3); Carbon Dioxide 23 mEq/L (23-29); Chloride 106 mEq/L (98-107); Glucose 103 mg/dL (70-105); Magnesium 1.7 mg/dL (1.6-2.6); Osmolality,Calculated 284 (280-300); Phosphorous 1.9 mg/dL (2.7-4.5); Potassium 3.5 mEq/L (3.5-5.1); Sodium 137 mEq/L (136-145); eGFR For Non-African Americans > 60 (> 60)
--- NOTE | 2018-10-30 08:59 | Discharge Summary ---
- NOTES TO OUTPATIENT PROVIDER Notes to Outpatient Provider: Pt was admitted for hypercalcemia and found to have multiple liver lesions concerning for malignancy. Oncology was consulted and outpatient biopsy is scheduled by oncology. Orders not resulted at time of discharge: Pending orders 10/27/18 23:56 ECG 12 lead ECG [ECG] Stat 10/28/18 01:37 Parathormone Related Peptide Stat 10/28/18 07:40 Immunofixation,Urine (BJP) Routine 10/28/18 08:24 Protein Electrophoresis Stat Serum Free Light Chain [Overly Lambda Qnt FLC w Ratio] Stat 10/29/18 08:32 EKG [ECG 12 lead ECG] [ECG] Stat Date of Encounter: 10/30/18 Time of Encounter: 08:53 - Discharge Diagnosis (1) Liver masses Priority: Secondary Status: Acute (2) Hypercalcemia Priority: Primary Status: Acute (3) URI (upper respiratory infection) Priority: Secondary Status: Chronic Qualifiers: URI type: unspecified URI Qualified Code(s): J06.9 - Acute upper respiratory infection, unspecified (4) Hyponatremia Priority: Primary Status: Resolved (5) Hypertension Priority: Secondary Status: Chronic Qualifiers: Hypertension type: essential hypertension Qualified Code(s): I10 - Essential (primary) hypertension (6) Tobacco abuse Priority: Secondary Status: Chronic (7) DVT prophylaxis Priority: Secondary Status: Acute Hospital course: Ms. Montgomery is a 58 year old female with PMH of hypertension, chronic constipation, GERD who was admitted for evaluation of hypercalcemia. Pt was started on IV fluids and had CT head/abd/pelvis to further evaluate for any underlying malignancy. Imaging findings reported multiple liver lesions and oncology was consulted. Pt received a dose of Zoledronic acid and was continued on IV fluids. Oncologist recommended outpatient biopsy. Pt also reported of being on abx for a URI, abx were prescribed on Tuesday (10/27/18) and patient was continued on these abx during this hospitalization. Pt is currently medically stable for discharge to home with follow up with PCP and oncology. She is educated on the number of doses of abx she has left to take on discharge. Her hypercalcemia has resolved. She is seen and examined at bedside today. She reports significant improvement in her fatigue and pain compared to previous day. States ibuprofen helped her pain. She demonstrates understanding of her diagnosis and agrees with the discharge care and plan. She will be discharged to home today. Discharge discussed with: patient, nurse - Time Spent with Patient Total time spent providing and/or coordinating discharge services: 25 minutes Time spent: Less than 30 minutes - Discharge Medications Prescriptions: New Ibuprofen [Motrin] 600 mg PO Q6HR PRN #10 tablet PRN Reason: Moderate Pain Continued Brompheniramine/Pseudoephed/Dm [Bromfed Dm Cough Syrup] 5 ml PO Q48H Montelukast [Singulair] 10 mg PO HS Aspirin [Adult Aspirin] 81 mg PO DAILY Omeprazole [PriLOSEC] 40 mg PO DAILY metFORMIN [Glucophage] 500 mg PO BIDWM Lisinopril [Zestril] 5 mg PO DAILY Docusate [Colace] 300 mg PO HS hydroCHLOROthiazide [Hydrochlorothiazide] 25 mg PO DAILY Cyclobenzaprine HCl 5 mg PO TID PRN PRN Reason: Muscle Spasm Ondansetron ODT [Zofran ODT] 4 mg PO Q6H PRN PRN Reason: Nausea Doxycycline Hyclate 100 mg PO BID LORazepam [Ativan] 0.25 mg PO TID PRN PRN Reason: Anxiety Home Medications: Aspirin [Adult Aspirin] 81 mg PO DAILY 10/28/18 [History] Brompheniramine/Pseudoephed/Dm [Bromfed Dm Cough Syrup] 5 ml PO Q48H 10/28/18 [History] Docusate [Colace] 300 mg PO HS 10/28/18 [History] Lisinopril [Zestril] 5 mg PO DAILY 10/28/18 [History] Montelukast [Singulair] 10 mg PO HS 10/28/18 [History] Omeprazole [PriLOSEC] 40 mg PO DAILY 10/28/18 [History] metFORMIN [Glucophage] 500 mg PO BIDWM 10/28/18 [History] Cyclobenzaprine HCl 5 mg PO TID PRN 10/29/18 [History] Doxycycline Hyclate 100 mg PO BID 10/29/18 [History] LORazepam [Ativan] 0.25 mg PO TID PRN 10/29/18 [History] Ondansetron ODT [Zofran ODT] 4 mg PO Q6H PRN 10/29/18 [History] hydroCHLOROthiazide [Hydrochlorothiazide] 25 mg PO DAILY 10/29/18 [History] Ibuprofen [Motrin] 600 mg PO Q6HR PRN #10 tablet 10/30/18 [Rx] Allergies/Adverse Reactions: Allergy/AdvReac Type Severity Reaction Status Date / Time fexofenadine [From Jessica-D] AdvReac See Verified 10/29/18 18:35 Comments latex AdvReac Redness of Verified 10/29/18 18:35 Skin pseudoephedrine AdvReac See Verified 10/29/18 18:35 [From Jessica-D] Comments sulfamethoxazole AdvReac See Verified 10/29/18 18:35 [From Bactrim] Comments trimethoprim [From Bactrim] AdvReac See Verified 10/29/18 18:35 Comments Date of admission: 10/28/18 02:44 Primary care physician: Terra De La Garza CNP Consults: 10/28/18 06:13 Consult to Oncology [CONS] Routine Consulting Provider: [facility] Reason for Consult: Patient presented with hypercalcemia and unintentional 23 pound weight loss over the past 2 months. Would like to rule out malignancy Call Completed: No Discharging clinician: Paige English Anticipated date of discharge: 10/30/18 - Constitutional Vitals: Temp Pulse Resp BP Pulse Ox 97.7 F 88 17 145/83 99 10/30/18 06:48 10/30/18 06:48 10/30/18 06:48 10/30/18 06:48 10/30/18 06:48 Exam: General: No acute distress, AAO x 3 HEENT: EOMI, NC/AT, no scleral icterus Respiratory: Clear to auscultate bilaterally, no wheezing, no rales Cardiovascular: Regular Rhythm, normal rate, No murmurs GI: Soft, Non tender, non distended, normal bowel sounds Ext: No edema, no tenderness, positive pulses Neuro: AAO x 3, no focal deficits, CN II-XII grossly intact Rest of the clinical exam is noncontributory - Patient Status Disposition: Home, Self-Care Functional capacity at discharge: independent ambulation - Discharge Instructions Follow Up With: Terra De La Garza CNP [Primary Care Provider] - Additional Instructions: 1. Please follow up with your primary care physician and oncologist within 3-5 days after your discharge from the hospital. 2. Please continue oral antibiotics to complete ten days of therapy, as prescribed by your PCP. 3. Please use ibuprofen as needed for pain, Ibuprofen can cause kidney injury and stomach ulcer/bleeding, please inform your PCP if you are having to take thi s medication a few times a day 4. Resume all your home medications as prescribed by your PCP 5. Please seek medical help if you have difficulty breathing or if chest pain occurs. - Diet and Activity Activity: increase activity as tolerated Diet: low fat, low cholesterol
[2018-10-30] MEDS: Aspirin Enteric Coated 81 MG Tablet PO SCH (09:32)
[2018-10-30] MEDS: Doxycycline 100 MG CAPSULE PO SCH (09:32)
[2018-10-31 14:20] LABS: Kappa Qnt Free Light Chains 1.69 mg/dL (0.33-1.94); Lambda Qnt Free Light Chains 1.64 mg/dL (0.57-2.63)
[2018-10-31 14:53] LABS: Alpha 2 Globulin (PEP) 0.88 g/dL (0.48-1.05); Beta Globulin (PEP) 0.75 g/dL (0.48-1.10)
[2018-10-31 15:43] LABS: IFE Reflexed NOT DONE
--- NOTE | 2018-10-31 22:31 | Electrocardiograph Report ---
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
--- NOTE | 2018-10-31 22:46 | Electrocardiograph Report ---
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
== END 2018-10-30 10:36 | disposition home or self-care (01) ==
LOC: EMEROOARM 23:14 → 2ANU 23:14 → SUATTDRO 10-28 02:44 → 2ANU 10-28 04:26
PROVIDERS: ADMIT Internal Medicine; ATTEND Internal Medicine

== ENCOUNTER 2018-11-30 09:58 | Inpatient (IN) ==
--- NOTE | 2018-11-30 10:44 | Emergency Department Note ---
Disposition Clinical Impression: Rectal fissure, Hypokalemia Anemia Qualifiers: Anemia type: unspecified type Qualified Code(s): D64.9 - Anemia, unspecified Esophageal cancer Qualifiers: Malignant neoplasm of esophagus location: unspecified location Qualified Code(s): C15.9 - Malignant neoplasm of esophagus, unspecified Disposition: Admitted As Inpatient Condition: Fair Referrals: NONE,PCP [Primary Care Provider] - Forms: ED Satisfaction Letter Time of Disposition: 13:30 General Adult HPI - General Chief complaint: ED Recheck/Abnormal Lab/Rx Stated complaint: Abnormal Labs Low Hemoglobin Time Seen by Provider: 11/30/18 10:12 Source: patient Limitations: no limitations Nursing Notes Reviewed: Yes Vital Signs Reviewed: Yes - History of Present Illness Pain Scale: 0 - Related Data Home Medications Medication Instructions Recorded Confirmed Aspirin [Adult Aspirin] 81 mg PO DAILY 10/28/18 11/30/18 Brompheniramine/Pseudoephed/Dm 5 ml PO Q48H 10/28/18 11/30/18 [Bromfed Dm Cough Syrup] Lisinopril [Zestril] 5 mg PO DAILY 10/28/18 11/30/18 Montelukast [Singulair] 10 mg PO HS 10/28/18 11/30/18 Omeprazole [PriLOSEC] 40 mg PO DAILY 10/28/18 11/30/18 metFORMIN [Glucophage] 500 mg PO BIDWM 10/28/18 11/30/18 Cyclobenzaprine HCl 5 mg PO TID PRN 10/29/18 11/30/18 LORazepam [Ativan] 0.25 mg PO TID PRN 10/29/18 11/30/18 Previous Rx's Medication Instructions Recorded Lidocaine/Prilocaine [Emla] 1 appl TP AD #30 gm 11/16/18 Nicotine Patch [Nicoderm] 7 mg TD DAILY 21 Days #21 11/16/18 patch.td24 Nicotine Patch [Nicoderm] 14 mg TD DAILY 21 Days #21 11/16/18 patch.td24 0.9 % Sodium Chloride 1,000 ml IV CONT #1 iv.soln 11/21/18 HYDROcodone/Acet 5/325 mg [[place] 1 tab PO Q6H PRN 7 Days #28 tab 11/21/18 5-325 mg] Ondansetron ODT [Zofran ODT] 4 mg PO Q6H PRN #30 tab.rapdis 11/30/18 Allergies Allergy/AdvReac Type Severity Reaction Status Date / Time fexofenadine [From Jessica-D] AdvReac See Verified 11/30/18 09:21 Comments latex AdvReac Redness of Verified 11/30/18 09:21 Skin pseudoephedrine AdvReac See Verified 11/30/18 09:21 [From Jessica-D] Comments sulfamethoxazole AdvReac See Verified 11/30/18 09:21 [From Bactrim] Comments trimethoprim [From Bactrim] AdvReac See Verified 11/30/18 09:21 Comments Past Medical History - Past Medical History Medical history: Reports: cancer, GERD, hypertension Surgical history: Reports: cholecystectomy Psychiatric history: Reports: anxiety, panic disorder - Social History Smoking Status: Never smoker Smokeless Tobacco Status: No Alcohol use: Reports: none Drug use: Reports: none Physical Exam - General Limitations: no limitations General appearance: alert, in no apparent distress Course Vital Signs Temperature 97.6 F 11/30/18 10:07 Pulse Rate 126 11/30/18 10:07 Respiratory Rate 20 11/30/18 10:07 Blood Pressure 92/60 11/30/18 10:07 O2 Sat by Pulse Oximetry 100 11/30/18 10:07 Temperature 98.9 F 11/30/18 12:00 Pulse Rate 122 11/30/18 12:47 Respiratory Rate 18 11/30/18 12:47 Blood Pressure 108/58 11/30/18 12:47 O2 Sat by Pulse Oximetry 100 11/30/18 12:47 Oxygen Delivery Oxygen Delivery Room Air Medical Decision Making - MDM Narrative Medical decision making narrative: 1300 hrs. With her hemoglobin at 6 we will go ahead and transfuse her and admit her hospitalist. We will consult with heme/onc for mgt also. - Lab Data Result diagrams: 11/30/18 11:29 11/30/18 11:29 Lab Results 11/30/18 11/30/18 11/30/18 Range/Units 09:44 11:29 11:29 WBC 10.0 (4.3-11.1) K/mcL RBC 1.91 L (3.82-4.97) M/mcL Hgb 6.0 L* (11.5-15.4) g/dL Hct 18.5 L (35.3-44.9) % MCV 96.9 (83.0-100.0) fL MCH 31.4 (28.0-33.3) pg MCHC 32.4 (31.6-35.5) g/dL RDW 20.4 H (11.5-14.5) % Plt Count 213 (140-400) K/mcL MPV 10.1 (9.4-12.4) fL Nucleated RBCs/100 WBC 0.2 H (0) /100 WBC PT 20.9 H (9.4-12.1) Seconds INR 1.8 Sodium (136-145) mEq/L Potassium (3.5-5.1) mEq/L Chloride (98-107) mEq/L Carbon Dioxide (23-29) mEq/L BUN (6-20) mg/dL Creatinine (0.60-1.20) mg/dL Est GFR ( Amer) (> 60) Est GFR (Non-Af Amer) (> 60) BUN/Creatinine Ratio (6-26) Glucose (70-105) mg/dL Calculated Osmolality (280-300) Calcium (8.6-10.3) mg/dL Crossmatch See Detail 11/30/18 Range/Units 11:29 WBC (4.3-11.1) K/mcL RBC (3.82-4.97) M/mcL Hgb (11.5-15.4) g/dL Hct (35.3-44.9) % MCV (83.0-100.0) fL MCH (28.0-33.3) pg MCHC (31.6-35.5) g/dL RDW (11.5-14.5) % Plt Count (140-400) K/mcL MPV (9.4-12.4) fL Nucleated RBCs/100 WBC (0) /100 WBC PT (9.4-12.1) Seconds INR Sodium 135 L (136-145) mEq/L Potassium 3.1 L (3.5-5.1) mEq/L Chloride 101 (98-107) mEq/L Carbon Dioxide 23 (23-29) mEq/L BUN 10 (6-20) mg/dL Creatinine 0.44 L (0.60-1.20) mg/dL Est GFR ( Amer) > 60 (> 60) Est GFR (Non-Af Amer) > 60 (> 60) BUN/Creatinine Ratio 23 (6-26) Glucose 89 (70-105) mg/dL Calculated Osmolality 279 L (280-300) Calcium 9.1 (8.6-10.3) mg/dL Crossmatch Critical Care Time Critical Care Time: Yes Total Critical Care Time: 50 Attestation: Excluding separately billable procedures. Attestation Statement - Attestation Attestation: This documentation is done with the assistance of Dragon dictation. Despite efforts made to ensure accuracy, there may be inaccuracies in candle wrapping machine operator or spelling and typographical errors. I examined this patient and my medical decision-making was reviewed with the Resident Physician. I agree with the documented findings, disposition and treatment plan as described except to the extent set forth below. Patient was seen and evaluated by Dr. Struod, I agree with their evaluation and management plan, I supervised care the patient's stay. Patient sent over by the cancer center due to anemia. She is a recent diagnosis of esophageal cancer with either secondary liver cancer metastasis to the liver. She has had a use of ibuprofen but is having bleed. History of also sounds like anal fissure. We will check that to see if she is having GI bleeding at this time. Denies abdominal pain at this time,. She had labs done at hematology today but will need some further labs to show need a transfusion and admission. I reviewed the residents documentation and agree with the residents assessment and plan of care. I have personally had face to face time with the patient. (Brief History, Brief Exam, and MDM) I personally supervised and was present for the felipe/critical portions of the following procedures completed by the resident: EKG was interpreted by the resident under my supervision, I agree with their interpretation.
--- NOTE | 2018-11-30 11:23 | Emergency Department Note ---
Disposition Clinical Impression: Rectal fissure, Hypokalemia Anemia Qualifiers: Anemia type: unspecified type Qualified Code(s): D64.9 - Anemia, unspecified Esophageal cancer Qualifiers: Malignant neoplasm of esophagus location: unspecified location Qualified Code(s): C15.9 - Malignant neoplasm of esophagus, unspecified Disposition: Admitted As Inpatient Condition: Fair Referrals: NONE,PCP [Non-Partnered Physician] - Forms: ED Satisfaction Letter Time of Disposition: 13:09 General Adult HPI - General Chief complaint: ED Recheck/Abnormal Lab/Rx Stated complaint: Abnormal Labs Low Hemoglobin Time Seen by Provider: 11/30/18 10:12 Source: patient Mode of arrival: ambulatory Limitations: no limitations Nursing Notes Reviewed: Yes Vital Signs Reviewed: Yes - History of Present Illness HPI Narrative: 58-year-old female presents to the emergency department low hemoglobin. Re cently diagnosed approximately one month ago with esophageal cancer did undergo her first chemotherapy treatment one week ago to 3 day course. Said that over the last week she has had rectal bleeding bright red blood per rectum she did see her primary care physician who said this is due to anal fissures she had no hemorrhoids there is no melanic stools. She has no nausea or vomiting has not had any hematemesis. She has no other bleeding anywhere else. She says she has never had a low hemoglobin as far she knows. This all could be secondary to her newly diagnosed cancer but she also has been taken ibuprofen regularly to help with the pain. There is also could be secondary to gastric ulcers. Patient says that she has no abdominal pain and does not have any pain in around her she is symptomatic for low hemoglobin that was 6.7 due to being lightheaded and weak over the last 2 or 3 days. Patient otherwise has no other complaints or pain. Pain Scale: 0 - Related Data Home Medications Medication Instructions Recorded Confirmed Aspirin [Adult Aspirin] 81 mg PO DAILY 10/28/18 11/30/18 Brompheniramine/Pseudoephed/Dm 5 ml PO Q48H 10/28/18 11/30/18 [Bromfed Dm Cough Syrup] Lisinopril [Zestril] 5 mg PO DAILY 10/28/18 11/30/18 Montelukast [Singulair] 10 mg PO HS 10/28/18 11/30/18 Omeprazole [PriLOSEC] 40 mg PO DAILY 10/28/18 11/30/18 metFORMIN [Glucophage] 500 mg PO BIDWM 10/28/18 11/30/18 Cyclobenzaprine HCl 5 mg PO TID PRN 10/29/18 11/30/18 LORazepam [Ativan] 0.25 mg PO TID PRN 10/29/18 11/30/18 Previous Rx's Medication Instructions Recorded Lidocaine/Prilocaine [Emla] 1 appl TP AD #30 gm 11/16/18 Nicotine Patch [Nicoderm] 7 mg TD DAILY 21 Days #21 11/16/18 patch.td24 Nicotine Patch [Nicoderm] 14 mg TD DAILY 21 Days #21 11/16/18 patch.td24 0.9 % Sodium Chloride 1,000 ml IV CONT #1 iv.soln 11/21/18 HYDROcodone/Acet 5/325 mg [[place] 1 tab PO Q6H PRN 7 Days #28 tab 11/21/18 5-325 mg] Ondansetron ODT [Zofran ODT] 4 mg PO Q6H PRN #30 tab.rapdis 11/30/18 Allergies Allergy/AdvReac Type Severity Reaction Status Date / Time fexofenadine [From Jessica-D] AdvReac See Verified 11/30/18 09:21 Comments latex AdvReac Redness of Verified 11/30/18 09:21 Skin pseudoephedrine AdvReac See Verified 11/30/18 09:21 [From Jessica-D] Comments sulfamethoxazole AdvReac See Verified 11/30/18 09:21 [From Bactrim] Comments trimethoprim [From Bactrim] AdvReac See Verified 11/30/18 09:21 Comments All systems ED: reviewed and negative except as stated. Review of Systems: As Per HPI Past Medical History - Past Medical History Attestation: Yes The following information was validated with the patient. Source: patient Medical history: Reports: cancer, GERD, hypertension Surgical history: Reports: cholecystectomy Psychiatric history: Reports: anxiety, panic disorder - Social History Smoking Status: Never smoker Smokeless Tobacco Status: No Alcohol use: Reports: none Drug use: Reports: none Physical Exam - General Limitations: no limitations General appearance: alert, in no apparent distress - Head Head exam: atraumatic, normocephalic, normal inspection - Eye Eye exam: Present: normal appearance, PERRL, EOMI - ENT ENT exam: normal exam, normal oropharynx, mucous membranes moist - Neck Neck exam: Present: normal inspection, full ROM, trachea midline - Chest Chest inspection: Present: normal inspection, symmetric chest wall rise - Respiratory Respiratory exam: Present: normal lung sounds bilaterally - Cardiovascular Cardiovascular exam: Present: regular rate, normal rhythm, normal heart sounds - Abdominal Exam Abdominal exam: Present: soft, Non-Tender, normal bowel sounds. Absent: tenderness, distention, guarding, rebound, rigidity - Extremities Exam Extremities exam: Present: normal inspection, full ROM. Absent: tenderness, pedal edema - Back Exam Back exam: Present: normal inspection, full ROM. Absent: tenderness, CVA tenderness (R), CVA tenderness (L) - Neurological Exam Neurological exam: Present: alert, oriented X3 - Skin Skin exam: Present: warm, dry, intact, normal color Course Course Narrative: Patient has history of esophageal cancer recently started chemotherapy. Patient's hemoglobin was 6.7. She had type and screen done outside facility that is with [facility]. She brought the tag with her. We will give patient 2 units of blood as well as get basic labs. Patient otherwise has no other complaint. Most likely will be admitted. Vital Signs Temperature 97.6 F 11/30/18 10:07 Pulse Rate 126 11/30/18 10:07 Respiratory Rate 20 11/30/18 10:07 Blood Pressure 92/60 11/30/18 10:07 O2 Sat by Pulse Oximetry 100 11/30/18 10:07 Temperature 98.9 F 11/30/18 12:00 Pulse Rate 122 11/30/18 12:47 Respiratory Rate 18 11/30/18 12:47 Blood Pressure 108/58 11/30/18 12:47 O2 Sat by Pulse Oximetry 100 11/30/18 12:47 Oxygen Delivery Oxygen Delivery Room Air Medical Decision Making - [facility] Narrative Medical decision making narrative: 58-year-old female presents to the emergency department with low hemoglobin. She did have a rectal fissure when I evaluated her rectum. No noticeable hemorrhoids. Patient had mild melena but were unable do Hemoccult as she does have bright red blood per rectum so been positive anyways. Patient has stated she has been taking a lot of ibuprofen and she cannot take Tylenol due to liver issues. This could be a gastric ulcer as well. Patient did receive 2 units of blood here in the emergency department. I will replace patient's potassium with oral potassium. Patient does need to be admitted. I did speak with range conservationist surgery for possible endoscopy they said that they will see the patient. Consult was placed. Patient is okay with being admitted. Spoke with the hospitalist Dr. Reynolds who agreed to admit the patient to their service. Patient admitted in stable condition. - Medical Records Medical records reviewed: Yes I reviewed the patient's medical records. - Lab Data Lab results reviewed: Yes I reviewed the patient's lab results. Result diagrams: 11/30/18 11:29 11/30/18 11:29 Lab Results 11/30/18 11/30/18 11/30/18 Range/Units 09:44 11:29 11:29 WBC 10.0 (4.3-11.1) K/mcL RBC 1.91 L (3.82-4.97) M/mcL Hgb 6.0 L* (11.5-15.4) g/dL Hct 18.5 L (35.3-44.9) % MCV 96.9 (83.0-100.0) fL MCH 31.4 (28.0-33.3) pg MCHC 32.4 (31.6-35.5) g/dL RDW 20.4 H (11.5-14.5) % Plt Count 213 (140-400) K/mcL MPV 10.1 (9.4-12.4) fL Nucleated RBCs/100 WBC 0.2 H (0) /100 WBC PT 20.9 H (9.4-12.1) Seconds INR 1.8 Sodium (136-145) mEq/L Potassium (3.5-5.1) mEq/L Chloride (98-107) mEq/L Carbon Dioxide (23-29) mEq/L BUN (6-20) mg/dL Creatinine (0.60-1.20) mg/dL Est GFR ( Amer) (> 60) Est GFR (Non-Af Amer) (> 60) BUN/Creatinine Ratio (6-26) Glucose (70-105) mg/dL Calculated Osmolality (280-300) Calcium (8.6-10.3) mg/dL Crossmatch See Detail 11/30/18 Range/Units 11:29 WBC (4.3-11.1) K/mcL RBC (3.82-4.97) M/mcL Hgb (11.5-15.4) g/dL Hct (35.3-44.9) % MCV (83.0-100.0) fL MCH (28.0-33.3) pg MCHC (31.6-35.5) g/dL RDW (11.5-14.5) % Plt Count (140-400) K/mcL MPV (9.4-12.4) fL Nucleated RBCs/100 WBC (0) /100 WBC PT (9.4-12.1) Seconds INR Sodium 135 L (136-145) mEq/L Potassium 3.1 L (3.5-5.1) mEq/L Chloride 101 (98-107) mEq/L Carbon Dioxide 23 (23-29) mEq/L BUN 10 (6-20) mg/dL Creatinine 0.44 L (0.60-1.20) mg/dL Est GFR ( Amer) > 60 (> 60) Est GFR (Non-Af Amer) > 60 (> 60) BUN/Creatinine Ratio 23 (6-26) Glucose 89 (70-105) mg/dL Calculated Osmolality 279 L (280-300) Calcium 9.1 (8.6-10.3) mg/dL Crossmatch
[2018-11-30] MEDS: Nicotine 14 MG PATCH.TD24 TD SCH (11:26)
[2018-11-30] MEDS ORDERED: 0.9 % Sodium Chloride 250 ML ONE ×2 (11:32→22:28)
[2018-11-30 12:15] LABS: Nucleated Red Blood Cells 0.2 /100 WBC (0)
[2018-11-30 12:17] LABS: Hematocrit 18.5 % (35.3-44.9); Mean Corpuscular HGB Conc 32.4 g/dL (31.6-35.5); Mean Corpuscular Hemoglobin 31.4 pg (28.0-33.3); Mean Corpuscular Volume 96.9 fL (83.0-100.0); Mean Platelet Volume 10.1 fL (9.4-12.4); Platelet Count 213 K/mcL (140-400); Red Blood Count 1.91 M/mcL (3.82-4.97); Red Cell Distribution Width 20.4 % (11.5-14.5)
[2018-11-30 12:23] LABS: BUN/Creatinine Ratio 23 (6-26); Blood Urea Nitrogen 10 mg/dL (6-20); Calcium 9.1 mg/dL (8.6-10.3); Carbon Dioxide 23 mEq/L (23-29); Chloride 101 mEq/L (98-107); Glucose 89 mg/dL (70-105); Osmolality,Calculated 279 (280-300); Potassium 3.1 mEq/L (3.5-5.1); Sodium 135 mEq/L (136-145); eGFR For African Americans > 60 (> 60); eGFR For Non-African Americans > 60 (> 60)
[2018-11-30 12:29] LABS: INR 1.8; Prothrombin Time 20.9 Seconds (9.4-12.1)
[2018-11-30] MEDS ORDERED: Potassium Effervescent 25 MEQ TABLET.EFF PO ONE (13:04)
[2018-11-30] MEDS ORDERED: Isovue-370 500 ML BOTTLE IVP ONE (13:06)
[2018-11-30] MEDS ORDERED: Naloxone 0.4 MG/ML INJ IVP PRN (14:08)
[2018-11-30] MEDS ORDERED: traMADol 50 MG TABLET PO PRN (14:08)
[2018-11-30 14:10] LABS: Anisocytosis 2+ (Not Present); Lymphocytes # 1.4 K/mcL (0.6-4.6); Monocytes # 0.4 K/mcL (0.0-1.3); Neutrophils # 8.2 K/mcL (1.6-8.9); Platelet Estimate Normal (Normal)
[2018-11-30 14:12] LABS: Polychromasia 1+ (Not Present)
[2018-11-30] MEDS ORDERED: D5% in 0.9% NACL 1,000 ML IVC SCH (14:15)
[2018-11-30] MEDS ORDERED: Dextrose Gel 15 GM/37.5 ML TUBE PO PRN ×2 (14:16)
[2018-11-30] MEDS ORDERED: *HR* Dextrose 50 % in Water (Syg) 50 ML SYRINGE IVP PRN (14:16)
[2018-11-30] MEDS ORDERED: D5% in Water 1,000 ML IVC PRN (14:16)
--- NOTE | 2018-11-30 15:23 | Internal Med History&Physical ---
Date of Encounter: 11/30/18 Time of Encounter: 15:12 Internal Medicine - H&P: HPI Chief complaint: bright red blood per rectum Admitted From: Home Plans for Post Hospital Care: Home History of present illness: Ms. Montgomery is a 58 year old female H recently diagnosed with Metastatic esophageal poorly differentiated carcinoma started on FOLFOX initiated 11/21/2018. patient has completed 3 chemotherapy session, last one on , constipation, HTN, and diabetes. Patient presented to the ED today due to bright red blood per rectum associated with generalized weakness, light headedness, shortness of breath with ambulation. Patient stated that for the past 2 weeks she has seen bright red blood in the toilet every time she has a bowel movement. Reports that she was diagnosed with an anal fissure about 4 years ago and at first she thought the bleeding was related to the anal fissures because about 2 weeks ago she passed a large/hard BM and prior to this she was not bleeding. Reports for the past couple of days she has been feeling extremely weak and could barely walk around the house without feeling winded. Reports epigatric abdominal discomfort associated with eating, supra-pubic abdominal discomfort, nausea, but denies vomiting episodes. Report about 17 pounds weight loss for the past 2 weeks. In the ED patient was found to be tachycardic, and H&H of 6.0&18.5. Hospitalist called for coordination of care. Past Med Surg Social Fam HX - Past Medical History Medical history: cancer, GERD, hypertension Additional medical history: seasonal allergies (pre-diabetic- metabolic syndrome). esophogeal cancer. liver cancer Psychiatric history: anxiety, panic disorder - Past Surgical History Surgical History: cholecystectomy - Social History Smoking Status: Never smoker Smokeless Tobacco Status: No Alcohol use: none Drug use: none - Family History Mother Adopted: No Living Status: Hx Family Cardiac Disorders: Yes Internal Medicine - H&P: Meds Aspirin [Adult Aspirin] 81 mg PO DAILY 10/28/18 [History] Brompheniramine/Pseudoephed/Dm [Bromfed Dm Cough Syrup] 5 ml PO Q48H 10/28/18 [History] Lisinopril [Zestril] 5 mg PO DAILY 10/28/18 [History] Montelukast [Singulair] 10 mg PO HS 10/28/18 [History] Omeprazole [PriLOSEC] 40 mg PO DAILY 10/28/18 [History] metFORMIN [Glucophage] 500 mg PO BIDWM 10/28/18 [History] Cyclobenzaprine HCl 5 mg PO TID PRN 10/29/18 [History] LORazepam [Ativan] 0.25 mg PO TID PRN 10/29/18 [History] Lidocaine/Prilocaine [Emla] 1 appl TP AD #30 gm 11/16/18 [Rx] Nicotine Patch [Nicoderm] 7 mg TD DAILY 21 Days #21 patch.td24 11/16/18 [Rx] Nicotine Patch [Nicoderm] 14 mg TD DAILY 21 Days #21 patch.td24 11/16/18 [Rx] 0.9 % Sodium Chloride 1,000 ml IV CONT #1 iv.soln 11/21/18 [Rx] HYDROcodone/Acet 5/325 mg [[place] 5-325 mg] 1 tab PO Q6H PRN 7 Days #28 tab 11/21/18 [Rx] Ondansetron ODT [Zofran ODT] 4 mg PO Q6H PRN #30 tab.rapdis 11/30/18 [Rx] Allergy/AdvReac Type Severity Reaction Status Date / Time fexofenadine [From Jessica-D] AdvReac See Verified 11/30/18 09:21 Comments latex AdvReac Redness of Verified 11/30/18 09:21 Skin pseudoephedrine AdvReac See Verified 11/30/18 09:21 [From Jessica-D] Comments sulfamethoxazole AdvReac See Verified 11/30/18 09:21 [From Bactrim] Comments trimethoprim [From Bactrim] AdvReac See Verified 11/30/18 09:21 Comments All Systems PM: A 10-system review of systems was performed and is negative for pertinent findings except as documented above in the HPI. - Constitutional Constitutional: lethargy, weakness, no chills - EENT Nose, mouth and throat: no dry mouth, no mouth pain - Cardiovascular Cardiovascular ROS IM: dyspnea, dyspnea on exertion, lightheadedness, no chest pain, no edema, no palpitations, no paroxysmal nocturnal dyspnea - Respiratory Respiratory: no cough, no wheezing - Gastrointestinal Gastrointestinal: abdominal pain (supra-pubic and epigastric abdominal pain.), nausea, no vomiting - Genitourinary Genitourinary: no dysuria, no urinary urgency - Musculoskeletal Musculoskeletal ROS IM: no atrophy, no numbness, no stiffness - Integumentary Integumentary IM: no erythema, no jaundice - Neurological Neurological ROS: no focal weakness, no headache(s) - Psychiatric Psychiatric: no anxiety, no hopelessness, no irritability - Endocrine Endocrine IM: no cold intolerance, no excessive sweating - Hematologic/Lymphatic Hematologic/Lymphatic: no lymphadenopathy - Allergic/Immunologic Allergic/Immunologic: no GI upset with certain foods - Constitutional Vitals: Temp Pulse Resp BP Pulse Ox 98.1 F 116 19 118/77 100 11/30/18 14:38 11/30/18 14:38 11/30/18 14:38 11/30/18 14:38 11/30/18 14:38 Exam: Vitals: Reviewed General: Alert and oriented x4. In mild distress due to generalized weakness Cardiovascular: Tachycardic, normal S1 & S2, no rubs, murmurs or gallops. Lungs: CTA b/l, no wheezes or crackles. Abdomen: Obese, soft, non-tender, no rigidity. hepatomegaly Extremities: No deformity, no edema or tenderness, no joint swelling or clubbing. Neurological: Normal cognition and motor skills. Rest of the physical exam is non contributory Internal Med - H&P Results - Labs CBC & Chem 7: 11/30/18 11:29 11/30/18 11:29 Labs: Short CBC 11/30/18 Range/Units 11:29 WBC 10.0 (4.3-11.1) K/mcL Hgb 6.0 L* (11.5-15.4) g/dL Hct 18.5 L (35.3-44.9) % Plt Count 213 (140-400) K/mcL Neutrophils # 8.2 (1.6-8.9) K/mcL BMP 11/30/18 11:29 Sodium 135 L Potassium 3.1 L Chloride 101 Carbon Dioxide 23 BUN 10 Creatinine 0.44 L Glucose 89 Calcium 9.1 - Impressions ITS Impressions Abdomen/Pelvis CT 11/30/18 13:06 IMPRESSION: 1. Extensive metastatic disease involving the liver and lymph nodes of the abdomen as described on recent PET-CT imaging. 2. Mass lesion at the software gastric junction level presumably reflecting the primary malignancy as described on PET-CT imaging having increased metabolic activity. 3. Nonspecific slight mottled appearance of the bones concerning for possible underlying infiltrative process. Bone scan correlation may be useful. 4. Nonspecific abdominopelvic ascites. 5. Hepatomegaly. 6. Calcific atherosclerotic disease aorta. D/ / Itz Schofield / Itz Schofield Interpreting Provider: Itz Schofield - Assessment and Plan (1) GI bleed Current Visit: Yes Status: Acute Assessment and plan: Possible anorectal vs cancer related. Plan NPO Accu-checks Q6HRs plus lispro sliding scale started on Pantoprazole 40mg/IV BID D5/0.9NS @75 mls/hr Ondanzetron 4mg/IV Q6HR PRN for nausea Surgery consulted recommendations appreciated PT/INR Serial CBC Q8HRs Transfuse 2 units of PRBCs repeat cbc 1hour post transfusion CTA abd/pelvis Qualifiers: GI bleed type/associated pathology: unspecified gastrointestinal hemorrhage type Qualified Code(s): K92.2 - Gastrointestinal hemorrhage, unspecified (2) Acute blood loss anemia Current Visit: Yes Status: Acute Assessment and plan: plan of care as above (3) Hypokalemia Current Visit: Yes Status: Acute Assessment and plan: electrolyte being replaced (4) Esophageal cancer Current Visit: Yes Status: Acute Assessment and plan: Metastatic esophageal poorly differentiated carcinoma. PET/CT imaging 019 with focal metabolic activity of the esophagogastric junction and addition to known metastatic disease involving the left supraclavicular lymph node, upper abdominal, retroperitoneal lymph node basins as well as extensive disease involving the liver. FOLFOX initiated 11/21/2018. has completed three dosage. Plan Outpatient Hem&Onc follow up. Qualifiers: Malignant neoplasm of esophagus location: unspecified location Qualified Code(s): C15.9 - Malignant neoplasm of esophagus, unspecified (5) Rectal fissure Current Visit: Yes Status: Acute Assessment and plan: plan of care as per problem #1 (6) DVT prophylaxis Current Visit: Yes Status: Acute Assessment and plan: intermittent pneumatic compression. no chemical dvt prophylaxis due to GI bleed - Time Spent With Patient Total time spent is greater than 50% in coordination of care (as documented) at patient's floor/unit and/or counseling patient: Greater than 35 minutes (45)
[2018-11-30] MEDS ORDERED: Levalbuterol Neb 0.63 MG/3 ML IH PRN (15:35)
[2018-11-30] MEDS: Pantoprazole 40 MG VIAL IVP SCH (16:06)
[2018-11-30] MEDS: Ondansetron 4 MG/2 ML VIAL IVP PRN (16:06)
--- NOTE | 2018-11-30 16:09 | AcuteCare Surgery Consult Note ---
Date of Encounter: 11/30/18 Time of Encounter: 16:00 Assessment and Plan (1) Symptomatic anemia Current Visit: Yes Status: Acute Agree with transfusion of 2 U PRBC. Recommend EGD/Colonoscopy. P, R and B of upper and lower endoscopy to evaluate for GI bleeding is discussed. Pt understands and wishes to proceed as advised. Prep today and scopes tomorrow. (2) Rectal bleeding Current Visit: Yes Status: Acute (3) Esophageal cancer Current Visit: Yes Status: Acute with extensive mets to liver and lymph nodes. Currently undergoing chemotherapy. Qualifiers: Malignant neoplasm of esophagus location: unspecified location Qualified Code(s): C15.9 - Malignant neoplasm of esophagus, unspecified History of Present Illness Consult date: 11/30/18 Reason for consult: other (acute anemia and rectal bleeding) Requesting physician: Everton Stroud History of present illness: This 58 y/o female presents to [facility] ED as directed by her oncologist for low Hgb. She reports BRBPR for 3 weeks. Pt reports she has been diagnosed with an anal fissure. She reports it is bleeding "a lot." She reports the blood fills the toilet and is with BM. She denies spontaneous rectal bleeding. +esopahgeal cancer undergoing chemotherapy. She denies n/v or hematemesis. She reports weakness and fatigue for 3 weeks. Denies fevers. Past Med Surg Social Fam HX - Past Medical History Medical history: cancer, GERD, hypertension Additional medical history: seasonal allergies (pre-diabetic- metabolic syndrome). esophogeal cancer. liver cancer Psychiatric history: anxiety, panic disorder - Past Surgical History Surgical History: cholecystectomy - Social History Smoking Status: Never smoker Smokeless Tobacco Status: No Alcohol use: none Drug use: none - Family History Mother Adopted: No Living Status: Hx Family Cardiac Disorders: Yes Medications and Allergies Aspirin [Adult Aspirin] 81 mg PO DAILY 10/28/18 [History] Brompheniramine/Pseudoephed/Dm [Bromfed Dm Cough Syrup] 5 ml PO Q48H 10/28/18 [History] Lisinopril [Zestril] 5 mg PO DAILY 10/28/18 [History] Montelukast [Singulair] 10 mg PO HS 10/28/18 [History] Omeprazole [PriLOSEC] 40 mg PO DAILY 10/28/18 [History] metFORMIN [Glucophage] 500 mg PO BIDWM 10/28/18 [History] Cyclobenzaprine HCl 5 mg PO TID PRN 10/29/18 [History] LORazepam [Ativan] 0.25 mg PO TID PRN 10/29/18 [History] Lidocaine/Prilocaine [Emla] 1 appl TP AD #30 gm 11/16/18 [Rx] Nicotine Patch [Nicoderm] 7 mg TD DAILY 21 Days #21 patch.td24 11/16/18 [Rx] Nicotine Patch [Nicoderm] 14 mg TD DAILY 21 Days #21 patch.td24 11/16/18 [Rx] 0.9 % Sodium Chloride 1,000 ml IV CONT #1 iv.soln 11/21/18 [Rx] HYDROcodone/Acet 5/325 mg [[place] 5-325 mg] 1 tab PO Q6H PRN 7 Days #28 tab 11/21/18 [Rx] Ondansetron ODT [Zofran ODT] 4 mg PO Q6H PRN #30 tab.rapdis 11/30/18 [Rx] Allergy/AdvReac Type Severity Reaction Status Date / Time fexofenadine [From Jessica-D] AdvReac See Verified 11/30/18 09:21 Comments latex AdvReac Redness of Verified 11/30/18 09:21 Skin pseudoephedrine AdvReac See Verified 11/30/18 09:21 [From Jessica-D] Comments sulfamethoxazole AdvReac See Verified 11/30/18 09:21 [From Bactrim] Comments trimethoprim [From Bactrim] AdvReac See Verified 11/30/18 09:21 Comments Review of Systems All systems PM: The remainder of the systems were reviewed and are negative - Constitutional fatigue, lethargy, malaise, no anorexia, no chills, no fever(s), no frequent falls, no night sweats - EENT Nose, mouth and throat: no dizziness, no dry mouth, no dysphagia, no nasal congestion, no nasal discharge, no sinus pain, no sinus pressure, no sore throat - Cardiovascular dyspnea, dyspnea on exertion, no chest pain, no edema, no leg edema, no palpitations - Respiratory dyspnea, no cough, no wheezing - Gastrointestinal bloating, hematochezia, no abdominal pain, no constipation, no diarrhea, no hematemesis, no melena, no nausea, no vomiting - Genitourinary Genitourinary: no dysuria, no flank pain, no urinary frequency - Musculoskeletal back pain, no joint swelling, no limited range of motion, no neck pain - Integumentary no dry skin, no pruritus, no rash, no wounds, no jaundice - Neurological weakness, no dizziness, no focal weakness - Psychiatric anxiety, depression - Endocrine fatigue - Hematologic/Lymphatic no easy bleeding, no easy bruising General Surgery Exam Initial Vital Signs Temp Pulse Resp BP Pulse Ox 97.6 F 126 20 92/60 100 11/30/18 10:07 11/30/18 10:07 11/30/18 10:07 11/30/18 10:07 11/30/18 10:07 - General physical appearance well developed, well nourished, no distress. negative: jaundice - Eyes PERRL, normal ocular movement. negative: icteric - ENT no congestion, dry mucosa. negative: nasal discharge - Neck no masses, trachea midline, no lymphadectomy, no venous distension - Respiratory normal respiratory effort, clear to auscultation - Cardiovascular Cardiovascular exam: Present: RRR. Absent: murmurs, JVD - Abdomen Abdomen general surgery: Present: bowel sounds present, soft, non tender, distended - Genitourinary Present: normal external genitalia - Integumentary Integumentary general surgery: Present: warm and dry, other (pale) - Neurologic Present: CN 2-12 grossly intact, normal coordination - Musculoskeletal Present: normal posture - Psychiatric Psychiatric general surgery: Present: A&Ox3, appropriate Exam Initial Vital Signs Temp Pulse Resp BP Pulse Ox 97.6 F 126 20 92/60 100 11/30/18 10:07 11/30/18 10:07 11/30/18 10:07 11/30/18 10:07 11/30/18 10:07 Results - Labs 11/30/18 16:26 11/30/18 11:29 Abnormal lab results RBC 1.91 M/mcL (3.82-4.97) L 11/30/18 11:29 Hgb 6.0 g/dL (11.5-15.4) L* 11/30/18 11:29 Hct 18.5 % (35.3-44.9) L 11/30/18 11:29 RDW 20.4 % (11.5-14.5) H 11/30/18 11:29 Nucleated RBCs/100 WBC 0.2 /100 WBC (0) H 11/30/18 11:29 1+ (Not Present) A 11/30/18 11:29 2+ (Not Present) A 11/30/18 11:29 PT 20.9 Seconds (9.4-12.1) H 11/30/18 11:29 Sodium 135 mEq/L (136-145) L 11/30/18 11:29 Potassium 3.1 mEq/L (3.5-5.1) L 11/30/18 11:29 0.44 mg/dL (0.60-1.20) L 11/30/18 11:29 279 (280-300) L 11/30/18 11:29 Crossmatch See Detail 11/30/18 09:44 Diabetes panel 11/30/18 Range/Units 11:29 Sodium 135 L (136-145) mEq/L Potassium 3.1 L (3.5-5.1) mEq/L Chloride 101 (98-107) mEq/L Carbon Dioxide 23 (23-29) mEq/L BUN 10 (6-20) mg/dL Creatinine 0.44 L (0.60-1.20) mg/dL Glucose 89 (70-105) mg/dL Calcium 9.1 (8.6-10.3) mg/dL Calcium panel 11/30/18 Range/Units 11:29 Calcium 9.1 (8.6-10.3) mg/dL Pituitary panel 11/30/18 Range/Units 11:29 Sodium 135 L (136-145) mEq/L Potassium 3.1 L (3.5-5.1) mEq/L Chloride 101 (98-107) mEq/L Carbon Dioxide 23 (23-29) mEq/L BUN 10 (6-20) mg/dL Creatinine 0.44 L (0.60-1.20) mg/dL Glucose 89 (70-105) mg/dL Calcium 9.1 (8.6-10.3) mg/dL Adrenal panel 11/30/18 Range/Units 11:29 Sodium 135 L (136-145) mEq/L Potassium 3.1 L (3.5-5.1) mEq/L Chloride 101 (98-107) mEq/L Carbon Dioxide 23 (23-29) mEq/L BUN 10 (6-20) mg/dL Creatinine 0.44 L (0.60-1.20) mg/dL Glucose 89 (70-105) mg/dL Calcium 9.1 (8.6-10.3) mg/dL All other labs normal. - Imaging CT scan - abdomen: image reviewed (esophageal cancer with mets to liver and lymph nodes) CT scan - pelvis: image reviewed Consult Discharge Plan - Plan Referrals: NONE,PCP [Primary Care Provider] -
[2018-11-30 16:44] LABS: Basophils % 0.2 %; Eosinophils % 0.2 %; Hematocrit 21.6 % (35.3-44.9); Hemoglobin 7.2 g/dL (11.5-15.4); Immature Granulocytes % 0.4 % (0-4); Lymphocytes # 1.3 K/mcL (0.6-4.6); Lymphocytes % 12.3 %; Mean Corpuscular HGB Conc 33.3 g/dL (31.6-35.5); Mean Corpuscular Hemoglobin 31.9 pg (28.0-33.3); Mean Corpuscular Volume 95.6 fL (83.0-100.0); Mean Platelet Volume 9.9 fL (9.4-12.4); Monocytes # 0.8 K/mcL (0.0-1.3); Monocytes % 7.8 %; Neutrophils # 8.2 K/mcL (1.6-8.9); Platelet Count 190 K/mcL (140-400); Red Blood Count 2.26 M/mcL (3.82-4.97); Red Cell Distribution Width 18.6 % (11.5-14.5); Segmented Neutrophils % 79.1 %; White Blood Count 10.3 K/mcL (4.3-11.1)
[2018-11-30] MEDS: Insulin LISPRO 300 UNITS/3 ML VIAL SQ SCH (17:49)
[2018-11-30] MEDS ORDERED: *HR* HYDROcodone/Acet 5/325 mg TABLET PO PRN (17:59)
[2018-11-30] MEDS ORDERED: SODIUM CHLORIDE/NAHCO3/KCL/PEG 4,000 ML SOLN.RECON PO ONE (18:44)
[2018-11-30] MEDS: *HR* LORazepam 0.5 MG TABLET PO PRN (19:01)
[2018-11-30 22:54] LABS: Basophils % 0.1 %; Eosinophils % 0.5 %; Hematocrit 18.6 % (35.3-44.9); Hemoglobin 6.1 g/dL (11.5-15.4); Immature Granulocytes % 0.4 % (0-4); Lymphocytes % 11.2 %; Mean Corpuscular HGB Conc 32.8 g/dL (31.6-35.5); Mean Corpuscular Hemoglobin 31.4 pg (28.0-33.3); Mean Corpuscular Volume 95.9 fL (83.0-100.0); Mean Platelet Volume 9.4 fL (9.4-12.4); Monocytes # 0.7 K/mcL (0.0-1.3); Monocytes % 7.8 %; Neutrophils # 6.8 K/mcL (1.6-8.9); Nucleated Red Blood Cells 0.2 /100 WBC (0); Platelet Count 160 K/mcL (140-400); Red Blood Count 1.94 M/mcL (3.82-4.97); Red Cell Distribution Width 19.1 % (11.5-14.5); White Blood Count 8.5 K/mcL (4.3-11.1)
[2018-12-01] MEDS: Insulin LISPRO 300 UNITS/3 ML VIAL SQ SCH ×4 (01:35→17:00)
[2018-12-01] MEDS: Ondansetron 4 MG/2 ML VIAL IVP PRN ×2 (03:17→18:11)
[2018-12-01] MEDS: Pantoprazole 40 MG VIAL IVP SCH ×2 (05:00→17:09)
[2018-12-01] MEDS: *HR* LORazepam 0.5 MG TABLET PO PRN ×2 (05:19→21:06)
[2018-12-01 05:31] LABS: Hematocrit 24.1 % (35.3-44.9); Mean Corpuscular HGB Conc 32.8 g/dL (31.6-35.5); Mean Corpuscular Hemoglobin 31.2 pg (28.0-33.3); Mean Corpuscular Volume 95.3 fL (83.0-100.0); Mean Platelet Volume 9.9 fL (9.4-12.4); Platelet Count 177 K/mcL (140-400); Red Blood Count 2.53 M/mcL (3.82-4.97); Red Cell Distribution Width 18.2 % (11.5-14.5); White Blood Count 9.1 K/mcL (4.3-11.1)
[2018-12-01 05:32] LABS: Hemoglobin 7.9 g/dL (11.5-15.4)
[2018-12-01 05:52] LABS: BUN/Creatinine Ratio 17 (6-26); Blood Urea Nitrogen 7 mg/dL (6-20); Calcium 8.5 mg/dL (8.6-10.3); Carbon Dioxide 22 mEq/L (23-29); Chloride 101 mEq/L (98-107); Glucose 110 mg/dL (70-105); Magnesium 1.6 mg/dL (1.6-2.6); Osmolality,Calculated 271 (280-300); Phosphorous 1.1 mg/dL (2.7-4.5); Potassium 3.5 mEq/L (3.5-5.1); Sodium 131 mEq/L (136-145); eGFR For African Americans > 60 (> 60); eGFR For Non-African Americans > 60 (> 60)
[2018-12-01] MEDS ORDERED: D5% in 0.9% NACL 1,000 ML IVC SCH (08:42)
--- NOTE | 2018-12-01 08:43 | Internal Med Progress Note ---
Hospitalist Progress Note - Encounter Date of Encounter: 12/01/18 Time of Encounter: 08:39 - Subjective Interval History: I have seen and evaluated the patient at bedside. Patient reports feeling better today, denies shortness of breath or light headedness. reported having one bowel movement of bright red blood last night, denies vomiting or nausea. - Exam Vitals: Temp Pulse Resp BP Pulse Ox 97.9 F 102 16 98/64 99 12/01/18 07:34 12/01/18 07:34 12/01/18 07:34 12/01/18 07:34 12/01/18 07:34 Exam: Vitals: Reviewed General: Alert and oriented x4. No distress Cardiovascular: RRR, normal S1 & S2, no rubs, murmurs or gallops. Lungs: CTA b/l, no wheezes or crackles. Abdomen: Obese, soft, non-tender, no rigidity. hepatomegaly. NABS in all 4 quadrants Extremities: 2+ edema in the lower extr b/l. Neurological: No focal neurological deficits Rest of the physical exam is non contributory - Assessment and Plan (1) GI bleed Current Visit: Yes Status: Acute Assessment and Plan: Possible anorectal vs cancer related. patient s/p 2 units of PRBCs transfused H&H stable Plan NPO Accu-checks Q6HRs plus lispro sliding scale continue Pantoprazole 40mg/IV BID decrease D5/0.9NS to @50 mls/hr Ondanzetron 4mg/IV Q6HR PRN for nausea Patient scheduled for EGC and colonoscopy today will repeat H&H at 6pm Surgery recommendations appreciated (2) Acute blood loss anemia Current Visit: Yes Status: Acute Assessment and Plan: plan of care as above (3) Hypokalemia Current Visit: Yes Status: Resolved (4) Esophageal cancer Current Visit: Yes Status: Acute Assessment and Plan: Metastatic esophageal poorly differentiated carcinoma. PET/CT imaging 11/15/2018 with focal metabolic activity of the esophagogastric junction and addition to known metastatic disease involving the left supraclavicular lymph node, upper abdominal, retroperitoneal lymph node basins as well as extensive disease involving the liver. FOLFOX initiated 11/21/2018. has completed three dosage. Plan Outpatient Hem&Onc follow up. (5) Rectal fissure Current Visit: Yes Status: Acute Assessment and Plan: patient scheduled for colonoscopy today (6) Hypophosphatemia Current Visit: Yes Status: Acute Assessment and Plan: electrolyte replaced DVT Prophylaxis: intermittent pneumatic compression for DVT prophylaxis - Summary of Assessment and Plan Summary of Assessment and Plan: Patient to remain in the hospital due to GI bleed, acute blood loss anemia. sc heduled for EGD and colonoscopy. - Time Spent with Patient Total time spent is greater than 50% in coordination of care (as documented) at patient's floor/unit and/or counseling patient: Greater than 35 minutes (40) Plan of Care Discussed with: patient (and the nurse.) Internal Medicine: Result - Labs CBC & Chem 7: 12/01/18 05:00 12/01/18 05:00 Labs: Short CBC 11/30/18 11/30/18 11/30/18 Range/Units 11:29 16:26 22:40 WBC 10.0 10.3 8.5 (4.3-11.1) K/mcL Hgb 6.0 L* 7.2 L 6.1 L (11.5-15.4) g/dL Hct 18.5 L 21.6 L 18.6 L (35.3-44.9) % Plt Count 213 190 160 (140-400) K/mcL Neutrophils # 8.2 8.2 6.8 (1.6-8.9) K/mcL 12/01/18 Range/Units 05:00 WBC 9.1 (4.3-11.1) K/mcL Hgb 7.9 L D (11.5-15.4) g/dL Hct 24.1 L (35.3-44.9) % Plt Count 177 (140-400) K/mcL Neutrophils # (1.6-8.9) K/mcL BMP 11/30/18 12/01/18 11:29 05:00 Sodium 135 L 131 L Potassium 3.1 L 3.5 Chloride 101 101 Carbon Dioxide 23 22 L BUN 10 7 Creatinine 0.44 L 0.41 L Glucose 89 110 H Calcium 9.1 8.5 L - ABG Interpretation ABG results: PT/INR, D-dimer PT 20.9 Seconds (9.4-12.1) H 11/30/18 11:29 - Impressions Impressions Abdomen/Pelvis CT 11/30/18 13:06 IMPRESSION: 1. Extensive metastatic disease involving the liver and lymph nodes of the abdomen as described on recent PET-CT imaging. 2. Mass lesion at the software gastric junction level presumably reflecting the primary malignancy as described on PET-CT imaging having increased metabolic activity. 3. Nonspecific slight mottled appearance of the bones concerning for possible underlying infiltrative process. Bone scan correlation may be useful. 4. Nonspecific abdominopelvic ascites. 5. Hepatomegaly. 6. Calcific atherosclerotic disease aorta. D/ / Itz Schofield / Itz Schofield Interpreting Provider: Itz Schofield Consult Discharge Plan - Plan Referrals: NONE,PCP [Primary Care Provider] - (1) GI bleed Qualifiers: GI bleed type/associated pathology: unspecified gastrointestinal hemorrhage type Qualified Code(s): K92.2 - Gastrointestinal hemorrhage, unspecified (4) Esophageal cancer Qualifiers: Malignant neoplasm of esophagus location: unspecified location Qualified Code(s): C15.9 - Malignant neoplasm of esophagus, unspecified
[2018-12-01] MEDS: Nicotine 14 MG PATCH.TD24 TD SCH (09:58)
[2018-12-01] MEDS ORDERED: Lidocaine -MPF 2% 2 ML VIAL ONE (10:43)
[2018-12-01] MEDS ORDERED: *HR* Propofol 200 MG/20 ML VIAL IVP ONE ×3 (10:43→11:57)
--- NOTE | 2018-12-01 11:25 | Anesthesia Evaluation PreOp ---
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) Other Medical History: Hepatic (esophageal ca with mets to the liver), Other (GI bleed, acute blood loss anemia) Anesthesia History: No Prior Anesthetic Complications, Past Anesthesia (cholecystectomy) Alcohol Use: none Drug use: none Medications and Allergies Aspirin [Adult Aspirin] 81 mg PO DAILY 10/28/18 [History] Brompheniramine/Pseudoephed/Dm [Bromfed Dm Cough Syrup] 5 ml PO Q48H 10/28/18 [History] Lisinopril [Zestril] 5 mg PO DAILY 10/28/18 [History] Montelukast [Singulair] 10 mg PO HS 10/28/18 [History] Omeprazole [PriLOSEC] 40 mg PO DAILY 10/28/18 [History] metFORMIN [Glucophage] 500 mg PO BIDWM 10/28/18 [History] Cyclobenzaprine HCl 5 mg PO TID PRN 10/29/18 [History] LORazepam [Ativan] 0.25 mg PO TID PRN 10/29/18 [History] Lidocaine/Prilocaine [Emla] 1 appl TP AD #30 gm 11/16/18 [Rx] Nicotine Patch [Nicoderm] 7 mg TD DAILY 21 Days #21 patch.td24 11/16/18 [Rx] Nicotine Patch [Nicoderm] 14 mg TD DAILY 21 Days #21 patch.td24 11/16/18 [Rx] 0.9 % Sodium Chloride 1,000 ml IV CONT #1 iv.soln 11/21/18 [Rx] HYDROcodone/Acet 5/325 mg [[place] 5-325 mg] 1 tab PO Q6H PRN 7 Days #28 tab 11/21/18 [Rx] Ondansetron ODT [Zofran ODT] 4 mg PO Q6H PRN #30 tab.rapdis 11/30/18 [Rx] Allergy/AdvReac Type Severity Reaction Status Date / Time fexofenadine [From Jessica-D] AdvReac See Verified 11/30/18 09:21 Comments latex AdvReac Redness of Verified 11/30/18 09:21 Skin pseudoephedrine AdvReac See Verified 11/30/18 09:21 [From Jessica-D] Comments sulfamethoxazole AdvReac See Verified 11/30/18 09:21 [From Bactrim] Comments trimethoprim [From Bactrim] AdvReac See Verified 11/30/18 09:21 Comments - Meds/Allergy Pre-op Review Medications Reviewed: Yes Allergies Reviewed: Yes Beta Blockers on Current Med List: No Anesthesia Results - Labs 12/01/18 05:00 12/01/18 05:00 Laboratory Tests 11/30/18 11:29 PT 20.9 H INR 1.8 - Imaging EKG: report reviewed (SINUS TACHYCARDIA MARKED LEFT AXIS DEVIATION INCOMPLETE RIGHT BUNDLE BRANCH BLOCK Electronically Signed On 10-31-2018 22:44:49 EDT by Xochitl Guzmán) Anesthesia Exam Vital Signs/O2 Sat, Most Current Temp Pulse Resp BP Pulse Ox 99 F 112 20 98/64 98 12/01/18 08:15 12/01/18 08:15 12/01/18 08:15 12/01/18 08:15 12/01/18 08:15 Weight: 85kg NPO (# of Hours): >8 - HEENT Pupil (Motor): Pupils equal, EOMI Mallampati: II - 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
--- NOTE | 2018-12-01 14:42 | Anesthesia Evaluation Post Op ---
Date of Encounter: 12/01/18 Time of Encounter: 14:41 - Vital Signs Vital Signs: Vital Signs/O2 Sat, Most Current Temp Pulse Resp BP Pulse Ox 99 F 107 20 104/70 94 12/01/18 14:12/01/18 14:12/01/18 14:12/01/18 14:12/01/18 13:40 - Lungs Lungs: Clear Ascult./Percussion - Airway Airway: Non-obstructed - Cardiovascular Regular Rate - Mental Status Mental Status: Alert & Oriented, Answers Appropriately - Pain Pain Scale: 0 Pain Scale used: Numeric (1 - 10) - Nausea Vomiting Nausea Vomiting: Not Present - Hydration Hydration: NPO - Discharge PostOp Status: Transfer Patient to floor
--- NOTE | 2018-12-01 16:52 | Oncology Inp Consult Note ---
Date of Encounter: 12/01/18 Time of Encounter: 08:00 Assessment and Plan (1) Esophageal cancer Status: Acute Assessment and plan: Patient with metastatic esophageal carcinoma, hospitalized for anemia, status post chemotherapy with FOLFOX cycle 1, rectal bleeding status post colonoscopy endoscopy no acute bleeding found hemorrhoids on perianal exam and polypectomy. Esophageal mass in the lower third of esophagus with food residue. She is status post transfusion 2 units of packed red blood cells hemoglobin is improved from 5 to around 7 g. Monitor hemoglobin hematocrit, if stable patient is not symptomatic plan for discharge. Above findings reviewed CT imaging findings reviewed with patient bedside. Plan of care discussed with patient and family Qualifiers: Malignant neoplasm of esophagus location: unspecified location Qualified Code(s): C15.9 - Malignant neoplasm of esophagus, unspecified - Data of Consult Requesting Physician: Tony Zarco MD Primary Care Provider: PCP NONE - Consult Narrative Reason for consult: esophageal cancer, bleeding History of present illness: 58 yo female with metastatic esophageal cancer, poorly differentiated carcinoma, with liver metastatic disease PET imaging from November 2018 showed uptake in left supraclavicular lymph node abdominal adenopathy, liver lesions. Patient has undergone cycle 1 of FOLFOX November 2018, was seen in clinic on follow-up of noted to have rectal bleeding him a hemoglobin dropped to 5 g. Patient was hospitalized for transfusion support and for additional testing to rule out active bleeding. Patient reports that she continues to have bleeding per rectum. She underwent a CT scan abdomen and pelvis since hospitalization that showed mass lesion in the gastric junction reflecting primary malignancy, metastatic lesions are unchanged from prior PET scan. Since hospitalization patient underwent a EGD and a colonoscopy EGD shows esophageal tumor and large amount of food in the stomach. A colonoscopy significant for hemorrhoids and polyps status post removal from rectosigmoid descending colon and proximal ascending colon. No evidence of bleeding. Past Med Surg Social Fam HX - Past Medical History Medical history: cancer, GERD, hypertension Additional medical history: seasonal allergies (pre-diabetic- metabolic syndrome). esophogeal cancer. liver cancer Psychiatric history: anxiety, panic disorder - Past Surgical History Surgical History: cholecystectomy - Social History Smoking Status: Never smoker Smokeless Tobacco Status: No Alcohol use: none Drug use: none - Family History Mother Adopted: No Living Status: Hx Family Cardiac Disorders: Yes Medications and Allergies Aspirin [Adult Aspirin] 81 mg PO DAILY 10/28/18 [History] Brompheniramine/Pseudoephed/Dm [Bromfed Dm Cough Syrup] 5 ml PO Q48H 10/28/18 [History] Lisinopril [Zestril] 5 mg PO DAILY 10/28/18 [History] Montelukast [Singulair] 10 mg PO HS 10/28/18 [History] Omeprazole [PriLOSEC] 40 mg PO DAILY 10/28/18 [History] metFORMIN [Glucophage] 500 mg PO BIDWM 10/28/18 [History] Cyclobenzaprine HCl 5 mg PO TID PRN 10/29/18 [History] LORazepam [Ativan] 0.25 mg PO TID PRN 10/29/18 [History] Lidocaine/Prilocaine [Emla] 1 appl TP AD #30 gm 11/16/18 [Rx] Nicotine Patch [Nicoderm] 7 mg TD DAILY 21 Days #21 patch.td24 11/16/18 [Rx] Nicotine Patch [Nicoderm] 14 mg TD DAILY 21 Days #21 patch.td24 11/16/18 [Rx] 0.9 % Sodium Chloride 1,000 ml IV CONT #1 iv.soln 11/21/18 [Rx] HYDROcodone/Acet 5/325 mg [[place] 5-325 mg] 1 tab PO Q6H PRN 7 Days #28 tab 11/21/18 [Rx] Ondansetron ODT [Zofran ODT] 4 mg PO Q6H PRN #30 tab.rapdis 11/30/18 [Rx] 3 Allergy/AdvReac Type Severity Reaction Status Date / Time fexofenadine [From Jessica-D] AdvReac See Verified 11/30/18 09:21 Comments latex AdvReac Redness of Verified 11/30/18 09:21 Skin pseudoephedrine AdvReac See Verified 11/30/18 09:21 [From Jessica-D] Comments sulfamethoxazole AdvReac See Verified 11/30/18 09:21 [From Bactrim] Comments trimethoprim [From Bactrim] AdvReac See Verified 11/30/18 09:21 Comments Constitutional: Present: fatigue Additional comments: denies CP. Respiratory: Present: dyspnea on exertion Gastrointestinal: Present: hematochezia Additional comments: abdominal pain, nausea Musculoskeletal: Present: as per HPI Additional comments: generalized wkness, no headaches Oncology - Exam - Constitutional General appearance: no acute distress, obese - Head Head exam: Present: atraumatic, normal inspection - Eye Eye exam: Present: sclera anicteric - ENT ENT exam: Present: mucous membranes moist - Neck Neck exam: Present: full ROM - Respiratory Respiratory exam: Present: CTAB - Cardiovascular Cardiovascular exam: Present: +S1, +S2 - GI/Abdominal GI/Abdominal exam: Present: normal bowel sounds, soft Additional comments: non tender - Extremities Exam Extremities exam: Present: pedal edema - Neurological Exam Neurological exam: Present: alert, CN II-XII intact, oriented X3, no focal deficits - Psychiatric Psychiatric exam: Present: normal affect Oncology Inpatient Results CT abd reviewed. Hgb-~7 Consult Discharge Plan - Plan Referrals: NONE,PCP [Primary Care Provider] - Inpatient Charges Provider: Dr. Kian Chatterjee Consult - Inpatient: [id number]
[2018-12-01] MEDS ORDERED: Hydrocortisone Rectal 2.5% CRM 28 GM TUBE RC PRN (17:31)
--- NOTE | 2018-12-01 17:39 | Acute Care Surgery Event Note ---
Date of Encounter: 12/01/18 Time of Encounter: 14:00 Pt underwent EGD and colonscopy for anemia with a Hgb of 6. No active GI bleeding was appreciated on scopes. EGD reveals known esophageal CA and gastroperesis with large food bolus in body of stomach. Three polyps and internal hemorrhoids are present on colonoscopy. Polyps are removed. Recommend steroid cream tid-qid. No further surgical intervention is recommended at this time. Surgery signing off.
[2018-12-01 18:46] LABS: Hematocrit 22.3 % (35.3-44.9); Hemoglobin 7.5 g/dL (11.5-15.4); Mean Corpuscular HGB Conc 33.6 g/dL (31.6-35.5); Mean Corpuscular Hemoglobin 31.6 pg (28.0-33.3); Mean Corpuscular Volume 94.1 fL (83.0-100.0); Mean Platelet Volume 9.7 fL (9.4-12.4); Platelet Count 152 K/mcL (140-400); Red Blood Count 2.37 M/mcL (3.82-4.97); Red Cell Distribution Width 19.2 % (11.5-14.5); White Blood Count 7.9 K/mcL (4.3-11.1)
[2018-12-02] MEDS ORDERED: traMADol 50 MG TABLET PO PRN (00:13)
[2018-12-02] MEDS: Insulin LISPRO 300 UNITS/3 ML VIAL SQ SCH (00:40)
[2018-12-02] MEDS: *HR* LORazepam 0.5 MG TABLET PO PRN ×2 (05:05→14:17)
[2018-12-02] MEDS: Pantoprazole 40 MG VIAL IVP SCH (05:05)
[2018-12-02 06:19] LABS: Basophils % 0.2 %; Eosinophils % 0.4 %; Hemoglobin 7.5 g/dL (11.5-15.4); Immature Granulocytes % 0.5 % (0-4); Lymphocytes # 1.2 K/mcL (0.6-4.6); Lymphocytes % 14.7 %; Mean Corpuscular HGB Conc 32.6 g/dL (31.6-35.5); Mean Corpuscular Hemoglobin 31.6 pg (28.0-33.3); Monocytes # 0.7 K/mcL (0.0-1.3); Monocytes % 8.2 %; Neutrophils # 6.1 K/mcL (1.6-8.9); Platelet Count 157 K/mcL (140-400); Red Blood Count 2.37 M/mcL (3.82-4.97); Red Cell Distribution Width 19.6 % (11.5-14.5); White Blood Count 8.1 K/mcL (4.3-11.1)
[2018-12-02 06:38] LABS: BUN/Creatinine Ratio 11 (6-26); Blood Urea Nitrogen 5 mg/dL (6-20); Calcium 7.9 mg/dL (8.6-10.3); Carbon Dioxide 23 mEq/L (23-29); Chloride 101 mEq/L (98-107); Glucose 85 mg/dL (70-105); Magnesium 1.6 mg/dL (1.6-2.6); Osmolality,Calculated 275 (280-300); Phosphorous 1.8 mg/dL (2.7-4.5); Sodium 134 mEq/L (136-145); eGFR For African Americans > 60 (> 60); eGFR For Non-African Americans > 60 (> 60)
[2018-12-02] MEDS ORDERED: Pantoprazole 40 MG VIAL IVP SCH (09:00)
--- NOTE | 2018-12-02 09:18 | Discharge Summary ---
Orders not resulted at time of discharge: Pending orders 11/30/18 09:44 Red Blood Cells [BBK] Stat 12/01/18 13:02 Surgical Pathology [PTH] Routine Date of Encounter: 12/02/18 Time of Encounter: 09:14 - Discharge Diagnosis (1) GI bleed Priority: Primary Status: Resolved Qualifiers: GI bleed type/associated pathology: unspecified gastrointestinal hemorrhage type Qualified Code(s): K92.2 - Gastrointestinal hemorrhage, unspecified (2) Acute blood loss anemia Priority: Primary Status: Acute (3) Hypokalemia Priority: Secondary Status: Resolved (4) Esophageal cancer Priority: Secondary Status: Chronic Qualifiers: Malignant neoplasm of esophagus location: unspecified location Qualified Code(s): C15.9 - Malignant neoplasm of esophagus, unspecified (5) Rectal fissure Priority: Secondary Status: Chronic (6) Hypophosphatemia Priority: Secondary Status: Chronic Hospital course: Ms. Montgomery is a 58 year old female H recently diagnosed with Metastatic esophageal poorly differentiated carcinoma started on FOLFOX initiated 11/21/2018. patient has completed 3 chemotherapy session, last one on , constipation, HTN, and diabetes. Patient presented to the ED due to bright red blood per rectum associated with generalized weakness, light headedness, shortness of breath with ambulation. Patient admitted to the hospital due to GI bleed, and symptomatic anemia. Transfuse 3 units of packed RBC, surgery consulted. Patient underwent EGD: Esophageal tumor, in the lower third of esophagus and colonoscopy: Hemorrhoids found on the perianal exam. On 18 mm polyps in the rectosigmoid colon. One polyp in the descending colon. One polyp in the proximal ascending colon. Patient acute symptoms have resolved after blood transfusion. She is hemodynamically stable to be discharged home. - Time Spent with Patient Total time spent providing and/or coordinating discharge services: Time spent: Greater than 30 minutes (35) - Discharge Medications Prescriptions: New Ondansetron ODT [Zofran ODT] 4 mg PO Q6H 30 Days #90 tab.rapdis Tramadol HCl [Ultram] 50 mg PO TID PRN 7 Days #15 tab PRN Reason: Moderate Pain Continued Brompheniramine/Pseudoephed/Dm [Bromfed Dm Cough Syrup] 5 ml PO Q48H Montelukast [Singulair] 10 mg PO HS Aspirin [Adult Aspirin] 81 mg PO DAILY Omeprazole [PriLOSEC] 40 mg PO DAILY metFORMIN [Glucophage] 500 mg PO BIDWM Lisinopril [Zestril] 5 mg PO DAILY Cyclobenzaprine HCl 5 mg PO TID PRN PRN Reason: Muscle Spasm LORazepam [Ativan] 0.25 mg PO TID PRN PRN Reason: Anxiety Lidocaine/Prilocaine [Emla] 1 appl TP AD #30 gm Nicotine Patch [Nicoderm] 14 mg TD DAILY 21 Days #21 patch.td24 HYDROcodone/Acet 5/325 mg [[place] 5-325 mg] 1 tab PO Q6H PRN 7 Days #28 tab PRN Reason: Pain Ondansetron ODT [Zofran ODT] 4 mg PO Q6H PRN #30 tab.rapdis PRN Reason: Nausea Home Medications: Aspirin [Adult Aspirin] 81 mg PO DAILY 10/28/18 [History] Brompheniramine/Pseudoephed/Dm [Bromfed Dm Cough Syrup] 5 ml PO Q48H 10/28/18 [History] Lisinopril [Zestril] 5 mg PO DAILY 10/28/18 [History] Montelukast [Singulair] 10 mg PO HS 10/28/18 [History] Omeprazole [PriLOSEC] 40 mg PO DAILY 10/28/18 [History] metFORMIN [Glucophage] 500 mg PO BIDWM 10/28/18 [History] Cyclobenzaprine HCl 5 mg PO TID PRN 10/29/18 [History] LORazepam [Ativan] 0.25 mg PO TID PRN 10/29/18 [History] Lidocaine/Prilocaine [Emla] 1 appl TP AD #30 gm 11/16/18 [Rx] Nicotine Patch [Nicoderm] 14 mg TD DAILY 21 Days #21 patch.td24 11/16/18 [Rx] HYDROcodone/Acet 5/325 mg [[place] 5-325 mg] 1 tab PO Q6H PRN 7 Days #28 tab 11/21/18 [Rx] Ondansetron ODT [Zofran ODT] 4 mg PO Q6H 30 Days #90 tab.rapdis 12/02/18 [Rx] Ondansetron ODT [Zofran ODT] 4 mg PO Q6H PRN #30 tab.rapdis 12/02/18 [Rx] Tramadol HCl [Ultram] 50 mg PO TID PRN 7 Days #15 tab 12/02/18 [Rx] Allergies/Adverse Reactions: Allergy/AdvReac Type Severity Reaction Status Date / Time fexofenadine [From Jessica-D] AdvReac See Verified 11/30/18 09:21 Comments latex AdvReac Redness of Verified 11/30/18 09:21 Skin pseudoephedrine AdvReac See Verified 11/30/18 09:21 [From Jessica-D] Comments sulfamethoxazole AdvReac See Verified 11/30/18 09:21 [From Bactrim] Comments trimethoprim [From Bactrim] AdvReac See Verified 11/30/18 09:21 Comments Date of admission: 11/30/18 15:09 Primary care physician: PCP NONE Consults: 11/30/18 12:33 Consult to Surgery [CONS] Stat Consulting Provider: Acute Care Surgery Reason for Consult: GI bleed hx of esophageal ca Time Notified: 12:34 Call Completed: Yes 11/30/18 13:07 Consult to Oncology [CONS] Stat Consulting Provider: [facility] Reason for Consult: PT sent by your clinic Time Notified: 13:07 Call Completed: Yes 11/30/18 17:06 Consult to Nutrition [CONS] Routine Comment: Pt lost 17 pounds in 2 months Consulting Provider: NUTRITION Reason for Dietary Consult: MST Score - Constitutional Vitals: Temp Pulse Resp BP Pulse Ox 99.0 F 119 19 110/77 97 12/02/18 07:27 12/02/18 07:27 12/02/18 07:27 12/02/18 07:27 12/02/18 07:27 Exam: Vitals: Reviewed General: Alert and oriented x4. No distress Cardiovascular: RRR, normal S1 & S2, no rubs, murmurs or gallops. Lungs: CTA b/l, no wheezes or crackles. Abdomen: Obese, soft, non-tender, no rigidity. hepatomegaly. NABS in all 4 quadrants Extremities: 2+ edema in the lower extr b/l. Neurological: No focal neurological deficits Rest of the physical exam is non contributory - Patient Status Disposition: Home, Self-Care Condition: Fair Functional capacity at discharge: independent ambulation Overall status at discharge: patient is progressing back to baseline - Discharge Instructions Follow Up With: NONE,PCP [Primary Care Provider] - - Diet and Activity Activity: resume usual activities as tolerated Diet: low salt diet
[2018-12-02] MEDS ORDERED: 0.9 % Sodium Chloride 250 ML ONE (09:21)
[2018-12-02 10:09] VITALS: BP 109/69
[2018-12-02] MEDS: Nicotine 14 MG PATCH.TD24 TD SCH (11:22)
[2018-12-02] MEDS ORDERED: Potassium Phosphate 44 MEQ in 0.9 % Sodium Chloride 250 ML IVPB ONE (11:33)
[2018-12-02] MEDS: Ondansetron 4 MG/2 ML VIAL IVP PRN (14:16)
[2018-12-02 15:37] LABS: Basophils % 0.5 %; Eosinophils % 0.3 %; Hematocrit 26.3 % (35.3-44.9); Hemoglobin 8.9 g/dL (11.5-15.4); Immature Granulocytes % 0.5 % (0-4); Lymphocytes # 0.9 K/mcL (0.6-4.6); Lymphocytes % 9.6 %; Mean Corpuscular HGB Conc 33.8 g/dL (31.6-35.5); Mean Corpuscular Hemoglobin 31.7 pg (28.0-33.3); Mean Corpuscular Volume 93.6 fL (83.0-100.0); Mean Platelet Volume 10.2 fL (9.4-12.4); Monocytes # 0.9 K/mcL (0.0-1.3); Monocytes % 10.1 %; Platelet Count 154 K/mcL (140-400); Red Blood Count 2.81 M/mcL (3.82-4.97); White Blood Count 8.9 K/mcL (4.3-11.1)
== END 2018-12-02 16:13 | disposition home or self-care (01) | DRG 378 ==
LOC: EMEROOARM 09:58 → 3ANU 09:58 → SUATTDRO 15:09 → 3ANU 15:24
PROVIDERS: ADMIT Internal Medicine Nephrology; ATTEND Internal Medicine

== ENCOUNTER 2018-12-20 14:54 | Inpatient (IN) ==
[2018-12-20] MEDS ORDERED: Potassium Chloride Elixir 20 MEQ/15 ML UDC PO ONE (15:24)
--- NOTE | 2018-12-20 15:28 | Emergency Department Note ---
Disposition Clinical Impression: Hypokalemia Disposition: Home, Self-Care Condition: Fair Time of Disposition: 19:34 General Adult HPI - General Chief complaint: ED Weakness Stated complaint: weakness Time Seen by Provider: 12/20/18 14:57 Source: patient Limitations: no limitations - History of Present Illness HPI Narrative: Patient is a 58-year-old female with a history of liver cancer as well as metastasis in the esophagus and presents here to the emergency room apparently with low potassium level. The patient apparently is complaining some generalized weakness. The patient has had diarrhea but that has not been present for the last 2-3 days. Patient does complain of a generalized abdominal pain has been chronic this is somewhat morbidly epigastric and right upper quadrant. The patient denies any back pain, shortness of breath or chest pain. Patient denies any other focal weakness. The patient has not had vomiting. She does have some nausea at times. She denies any fevers or chills. She is on chemotherapy. Pain Scale: 0 - Related Data Home Medications Medication Instructions Recorded Confirmed Brompheniramine/Pseudoephed/Dm 5 ml PO Q48H 10/28/18 12/20/18 [Bromfed Dm Cough Syrup] Montelukast [Singulair] 10 mg PO HS 10/28/18 12/20/18 Omeprazole [PriLOSEC] 40 mg PO DAILY 10/28/18 12/20/18 LORazepam [Ativan] 0.25 mg PO TID PRN 10/29/18 12/20/18 Previous Rx's Medication Instructions Recorded Nicotine Patch [Nicoderm] 14 mg TD DAILY 21 Days #21 11/16/18 patch.td24 HYDROcodone/Acet 5/325 mg [[place] 1 tab PO Q6H PRN 7 Days #28 tab 11/21/18 5-325 mg] Ondansetron ODT [Zofran ODT] 4 mg PO Q6H 30 Days #90 tab.rapdis 12/02/18 Docusate Sodium [Colace] 200 mg PO BID 30 Days #120 capsule 12/06/18 Lidocaine/Prilocaine [Emla] 1 appl TP AD #1 tube 12/06/18 Mirtazapine [Remeron] 7.5 mg PO HS 30 Days #15 tablet 12/06/18 Nystatin [Nystatin Suspension] 500,000 units PO QID #120 ml 12/20/18 Allergies Allergy/AdvReac Type Severity Reaction Status Date / Time Bleach (Sodium Hypochlorite) AdvReac Rash Verified 12/20/18 15:09 fexofenadine [From Jessica-D] AdvReac See Verified 12/06/18 09:36 Comments latex AdvReac Redness of Verified 12/06/18 09:36 Skin pseudoephedrine AdvReac See Verified 12/06/18 09:36 [From Jessica-D] Comments sulfamethoxazole AdvReac See Verified 12/06/18 09:36 [From Bactrim] Comments trimethoprim [From Bactrim] AdvReac See Verified 12/06/18 09:36 Comments Review of Systems: As mentioned per history of present illness and as follows. Constitutional: Negative for chills or fever HENT: Negative for sore throat. Eyes: Negative for visual disturbance Respiratory: Negative for shortness of breath. Cardiovascular: Negative for palpitations. Gastrointestinal: Positive for abdominal pain Genitourinary: Negative for dysuria Musculoskeletal: Negative for back pain. Skin: Negative for rash. Neurological: Negative for focal weakness Psychiatric/Behavioral: Negative for depression Past Medical History - Past Medical History Medical history: Reports: cancer, GERD, hypertension Surgical history: Reports: cholecystectomy Psychiatric history: Reports: anxiety, panic disorder - Social History Smoking Status: Never smoker Smokeless Tobacco Status: No Alcohol use: Reports: none Drug use: Reports: none Physical Exam PHYSICAL EXAM Constitutional: Well developed, chronically ill-appearing, Non-toxic appearance. HENT: Normocephalic, Atraumatic, Bilateral external ears normal, Oropharynx moist, No oral exudates, Nose normal. Neck- Normal range of motion, No tenderness, Supple. Eyes: PERRL, EOMI, Conjunctiva normal,. Cardiovascular: Tachycardic rate and rhythm without clicks, rubs, gallops or murmurs. Respiratory: Normal breath sounds, No respiratory distress, No wheezing, rhonchi, or crackles. GI: Soft, nontender, no evidence of guarding or peritoneal signs. Bowel sounds are active. Musculoskeletal: Good range of motion in all major joints. No tenderness to palpation or major deformities noted. + Equal strength in the upper and lower extremities Integument: Warm, Dry, jaundice, No rash. No edema. Neurologic: Alert & oriented x 3, Normal sensory function, No focal deficits noted. CN II-XII grossly intact. - General Limitations: no limitations General appearance: alert Course Vital Signs Temperature 97.6 F 12/20/18 14:57 Pulse Rate 112 12/20/18 14:57 Respiratory Rate 22 12/20/18 14:57 Blood Pressure 124/83 12/20/18 14:57 O2 Sat by Pulse Oximetry 100 12/20/18 14:57 Temperature 97.6 F 12/20/18 14:57 Pulse Rate 95 12/20/18 18:43 Respiratory Rate 22 12/20/18 18:43 Blood Pressure 107/71 12/20/18 18:43 O2 Sat by Pulse Oximetry 98 12/20/18 18:43 Oxygen Delivery Oxygen Delivery Room Air Medical Decision Making - MDM Narrative Medical decision making narrative: EKG was done that shows sinus tachycardia 113 beats a minute, patient does have a right bundle branch block, similar in appearance to an October 2018 EKG. NV and QT intervals do appear to be within normal limits. Interpreted by myself. Patient was found to have significant and severe hypokalemia. The patient was ordered for by mouth and IV potassium. Patient was given multiple IV potassium riders. Patient at this point in time is going to be admitted to the hospitalist, case was discussed in full detail with the hospitalist and they have agreed to accept the patient to a telemetry floor for the significant and severe hypokalemia. Patient will be admitted in stable condition. CRITICAL CARE TIME OF 35 MINUTES PERFORMING THIS INDIVIDUAL OUTSIDE OF SEPARATELY BILLABLE PROCEDURES. THIS INCLUDES BEDSIDE EVALUATION, INTERPRETATION OF EKG AND LAB TESTS AND CONSULTATIONS. Final impression 1. Hypokalemia - Lab Data Result diagrams: 12/20/18 16:25 12/20/18 16:25 Lab Results 12/20/18 12/20/18 12/20/18 Range/Units 16:25 16:25 17:20 WBC 2.7 L (4.3-11.1) K/mcL RBC 2.31 L (3.82-4.97) M/mcL Hgb 7.4 L (11.5-15.4) g/dL Hct 23.0 L (35.3-44.9) % MCV 99.6 (83.0-100.0) fL MCH 32.0 (28.0-33.3) pg MCHC 32.2 (31.6-35.5) g/dL RDW 22.7 H (11.5-14.5) % Plt Count 164 (140-400) K/mcL MPV 10.7 (9.4-12.4) fL Immature Gran % 1.9 (0-4) % Seg Neutrophils % 74.6 % Lymphocytes % 14.9 % Monocytes % 8.6 % Eosinophils % 0.0 % Basophils % 0.0 % Neutrophils # 2.0 (1.6-8.9) K/mcL Lymphocytes # 0.4 L (0.6-4.6) K/mcL Monocytes # 0.2 (0.0-1.3) K/mcL Eosinophils # 0.0 (0.0-0.6) K/mcL Basophils # 0.0 (0.0-0.2) K/mcL Sodium 134 L (136-145) mEq/L Potassium 2.1 L* (3.5-5.1) mEq/L Chloride 96 L (98-107) mEq/L Carbon Dioxide 27 (23-29) mEq/L BUN 5 L (6-20) mg/dL Creatinine 0.45 L (0.60-1.20) mg/dL Est GFR ( Amer) > 60 (> 60) Est GFR (Non-Af Amer) > 60 (> 60) BUN/Creatinine Ratio 11 (6-26) Glucose 198 H (70-105) mg/dL Calculated Osmolality 281 (280-300) Calcium 7.9 L (8.6-10.3) mg/dL Magnesium 1.9 (1.6-2.6) mg/dL Total Bilirubin 4.1 H (0.3-1.0) mg/dL AST 42 H (13-39) Units/L ALT 14 (7-52) Units/L Alkaline Phosphatase 296 H (34-104) Units/L Troponin I 0.03 (< 0.04) ng/mL Serum Total Protein 4.9 L (6.4-8.9) g/dL Albumin 2.2 L (3.5-5.7) g/dL Globulin 2.7 (2.4-3.5) g/dL Albumin/Globulin Ratio 0.8 L (1.1-2.2) TSH 2.262 (0.340-5.600) mcIU/mL Urine Color Dark Yellow (Yellow) Urine Clarity Cloudy A (Clear) Urine pH 6.0 (5.0-8.0) pH Units Ur Specific [place] 1.012 (1.010-1.025) Urine Protein Trace (Neg-Trace) mg/dL Urine Glucose (UA) Normal (Normal) mg/dL Urine Ketones Negative (Negative) mg/dL Urine Blood Negative (Negative) Urine Nitrite Negative (Negative) Urine Bilirubin Moderate H (Negative) Urine Urobilinogen 2.0 H (Normal) mg/dL Ur Leukocyte Esterase Negative (Negative) Urine Microscopic RBC 0-3 (0-3) per hpf Urine Microscopic WBC 5-15 H (0-3) per hpf Ur Squamous Epith Cells Many H (None-Few) per lpf Urine Bacteria Many H (None-Few) per hpf Hyaline Casts Few (None-Few) per lpf Urine Yeast Few H (None Seen) per hpf Ur Culture Indicated? YES A (NO) Critical Care Time Total Critical Care Time: 35 Attestation: Please see chart
[2018-12-20 16:45] LABS: Hemoglobin 7.4 g/dL (11.5-15.4); Immature Granulocytes % 1.9 % (0-4); Lymphocytes # 0.4 K/mcL (0.6-4.6); Lymphocytes % 14.9 %; Mean Corpuscular HGB Conc 32.2 g/dL (31.6-35.5); Mean Corpuscular Volume 99.6 fL (83.0-100.0); Mean Platelet Volume 10.7 fL (9.4-12.4); Monocytes # 0.2 K/mcL (0.0-1.3); Monocytes % 8.6 %; Platelet Count 164 K/mcL (140-400); Red Blood Count 2.31 M/mcL (3.82-4.97); Red Cell Distribution Width 22.7 % (11.5-14.5); Segmented Neutrophils % 74.6 %; White Blood Count 2.7 K/mcL (4.3-11.1)
[2018-12-20 17:11] LABS: Alanine Aminotransferase 14 Units/L (7-52); Albumin 2.2 g/dL (3.5-5.7); Albumin/Globulin Ratio 0.8 (1.1-2.2); Alkaline Phosphatase 296 Units/L (34-104); Aspartate Amino Transferase 42 Units/L (13-39); BUN/Creatinine Ratio 11 (6-26); Bilirubin,Total 4.1 mg/dL (0.3-1.0); Blood Urea Nitrogen 5 mg/dL (6-20); Calcium 7.9 mg/dL (8.6-10.3); Carbon Dioxide 27 mEq/L (23-29); Chloride 96 mEq/L (98-107); Globulin 2.7 g/dL (2.4-3.5); Glucose 198 mg/dL (70-105); Magnesium 1.9 mg/dL (1.6-2.6); Osmolality,Calculated 281 (280-300); Potassium 2.1 mEq/L (3.5-5.1); Sodium 134 mEq/L (136-145); Total Protein 4.9 g/dL (6.4-8.9); Troponin I 0.03 ng/mL (< 0.04); eGFR For African Americans > 60 (> 60); eGFR For Non-African Americans > 60 (> 60)
[2018-12-20 17:28] LABS: Thyroid Stimulating Hormone 2.262 mcIU/mL (0.340-5.600)
[2018-12-20 17:33] LABS: Bilirubin,Urine Moderate (Negative); Blood,Urine Negative (Negative); Clarity,Urine Cloudy (Clear); Color,Urine Dark Yellow (Yellow); Glucose,Urine (UA) Normal (Normal); Ketones,Urine Negative (Negative); Leukocyte Esterase,Urine Negative (Negative); Nitrite,Urine Negative (Negative); Protein,Urine Trace mg/dL (Neg-Trace); Specific Gravity,Urine 1.012 (1.010-1.025)
[2018-12-20 17:35] LABS: Bacteria,Urine Many per hpf (None-Few); Hyaline Casts,Urine Few per lpf (None-Few); RBC,Urine 0-3 per hpf (0-3); Squamous Epithelial Cell,Urine Many per lpf (None-Few)
[2018-12-20 17:49] LABS: Yeast,Urine Few per hpf (None Seen)
[2018-12-20] MEDS ORDERED: Potassium Chloride 40 MEQ, Lidocaine 1% 2 ML in D5% in Water 500 ML IVPB ONE (18:38)
[2018-12-20] MEDS ORDERED: *HR* OxyCODONE Immed Rel 5 MG TABLET PO PRN (20:45)
[2018-12-20] MEDS ORDERED: traMADol 50 MG TABLET PO PRN (20:45)
[2018-12-20] MEDS ORDERED: Naloxone 0.4 MG/ML INJ IVP PRN (20:45)
[2018-12-20] MEDS ORDERED: Ondansetron ODT 4 MG TAB.RAPDIS PO SCH (20:45)
--- NOTE | 2018-12-20 22:18 | Internal Med History&Physical ---
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 She has had issues with blood loss anemia requiring blood transfusions in the recent past and has been weak and debilitated from her underlying disease and chemotherapy. She underwent chemotherapy today and was referred afterwards for generalized weakness and found to have a potassium of 2.1. She has had some diarrhea but no vomiting. She also has some abdominal discomfort from her massive ascites which was unable to be tapped recently due to coagulopathy. She denies fever and chills. Vitals: Reviewed General: NAD Skin: Jaundiced, warm and dry. HEENT: Dry mucous membranes. (+) conjunctivae pallor. Scleral icterus. Neck: No JVD. No carotid bruits. No palpable thyroid. Chest: Normal thoracic expansion. Normal breath sounds. Clear to auscultation. Heart: Normal S1 & S2; rhythmic. No rubs or murmurs. Abdomen: distended, soft and non-tender to palpation. No peritoneal reaction. Extremities: No calf tenderness. Normal distal pulses. Neurological: Somnolent but arousable. Oriented to person, place and time. No focal deficits. Psych: Affect appropriate. Assessment/Plan 1. Hypokalemia: Has been started on both enteral and parenteral s upplementation. Will check Mg to ensure it is within normalcy. Monitor on telemetry in the interim. 2. Ascites: Large volume but not tense and non-peritoneal on palpation. Will obtain coags and consult IR for therapeutic paracentesis. 3. Anemia: Likely from ongoing blood loss as well as her malignant disease. Noted to have a downward trend of recent. Will order 1U pRBC for optimization. 4. Metastatic cancer: Prognosis is poor. Will continue treatment as per oncology. She will benefit from palliative care services as well. Analgesics ordered as needed. 5. Anxiety disorder: On lorazepam prn. Past Med Surg Social Fam HX - Past Medical History Medical history: cancer, GERD, hypertension Additional medical history: seasonal allergies (pre-diabetic- metabolic syndrome). esophogeal cancer. liver cancer Psychiatric history: anxiety, panic disorder - Past Surgical History Surgical History: cholecystectomy - Social History Smoking Status: Never smoker Smokeless Tobacco Status: No Alcohol use: none Drug use: none - Family History Mother Adopted: No Living Status: Hx Family Cardiac Disorders: Yes Internal Medicine - H&P: Meds Brompheniramine/Pseudoephed/Dm [Bromfed Dm Cough Syrup] 5 ml PO Q48H 10/28/18 [History] Montelukast [Singulair] 10 mg PO HS 10/28/18 [History] Omeprazole [PriLOSEC] 40 mg PO DAILY 10/28/18 [History] LORazepam [Ativan] 0.25 mg PO TID PRN 10/29/18 [History] Nicotine Patch [Nicoderm] 14 mg TD DAILY 21 Days #21 patch.td24 11/16/18 [Rx] HYDROcodone/Acet 5/325 mg [[place] 5-325 mg] 1 tab PO Q6H PRN 7 Days #28 tab 11/21/18 [Rx] Ondansetron ODT [Zofran ODT] 4 mg PO Q6H 30 Days #90 tab.rapdis 12/02/18 [Rx] Docusate Sodium [Colace] 200 mg PO BID 30 Days #120 capsule 12/06/18 [Rx] Lidocaine/Prilocaine [Emla] 1 appl TP AD #1 tube 12/06/18 [Rx] Mirtazapine [Remeron] 7.5 mg PO HS 30 Days #15 tablet 12/06/18 [Rx] Nystatin [Nystatin Suspension] 500,000 units PO QID #120 ml 12/20/18 [Rx] Allergy/AdvReac Type Severity Reaction Status Date / Time Bleach (Sodium Hypochlorite) AdvReac Rash Verified 12/20/18 15:09 fexofenadine [From Jessica-D] AdvReac See Verified 12/06/18 09:36 Comments latex AdvReac Redness of Verified 12/06/18 09:36 Skin pseudoephedrine AdvReac See Verified 12/06/18 09:36 [From Jessica-D] Comments sulfamethoxazole AdvReac See Verified 12/06/18 09:36 [From Bactrim] Comments trimethoprim [From Bactrim] AdvReac See Verified 12/06/18 09:36 Comments All Systems PM: A 10-system review of systems was performed and is negative for pertinent findings except as documented above in the HPI. - Constitutional Vitals: Temp Pulse Resp BP Pulse Ox 98 F 99 16 115/78 99 12/20/18 20:25 12/20/18 20:25 12/20/18 20:25 12/20/18 20:25 12/20/18 20:25 Exam: . Internal Med - H&P Results - Labs CBC & Chem 7: 12/20/18 16:25 12/20/18 16:25 Labs: Short CBC 12/20/18 Range/Units 16:25 WBC 2.7 L (4.3-11.1) K/mcL Hgb 7.4 L (11.5-15.4) g/dL Hct 23.0 L (35.3-44.9) % Plt Count 164 (140-400) K/mcL Neutrophils # 2.0 (1.6-8.9) K/mcL BMP 12/20/18 16:25 Sodium 134 L Potassium 2.1 L* Chloride 96 L Carbon Dioxide 27 BUN 5 L Creatinine 0.45 L Glucose 198 H Calcium 7.9 L Cardiac Enzymes 12/20/18 Range/Units 16:25 Troponin I 0.03 (< 0.04) ng/mL Liver Function 12/20/18 Range/Units 16:25 Total Bilirubin 4.1 H (0.3-1.0) mg/dL AST 42 H (13-39) Units/L ALT 14 (7-52) Units/L Alkaline Phosphatase 296 H (34-104) Units/L Albumin 2.2 L (3.5-5.7) g/dL Urine 12/20/18 Range/Units 17:20 Urine Color Dark Yellow (Yellow) Urine Clarity Cloudy A (Clear) Urine pH 6.0 (5.0-8.0) pH Units Ur Specific [place] 1.012 (1.010-1.025) Urine Protein Trace (Neg-Trace) mg/dL Urine Glucose (UA) Normal (Normal) mg/dL - Impressions ITS Impressions Chest X-Ray 12/20/18 15:14 IMPRESSION: Low lung volumes. No acute cardiopulmonary process. D/ / 12/20/2018 15:47:59 Aurelio Cody MD / earnold Interpreting Provider: Aurelio Cody MD - Time Spent With Patient Total time spent is greater than 50% in coordination of care (as documented) at patient's floor/unit and/or counseling patient: Greater than 35 minutes
[2018-12-20] MEDS: BROMPHENIRAMINE PO SCH (23:33)
[2018-12-20] MEDS: PSEUDOEPHEDRINE PO SCH (23:33)
[2018-12-20] MEDS: DEXTROMETHORPHAN PO SCH (23:33)
[2018-12-20] MEDS: Mirtazapine 15 MG TABLET PO SCH (23:33)
[2018-12-20] MEDS: *HR* LORazepam 0.5 MG TABLET PO PRN (23:46)
[2018-12-21] MEDS ORDERED: 0.9 % Sodium Chloride 250 ML ONE ×2 (01:37→23:23)
[2018-12-21] MEDS: Ringers Solution, Lactated 1,000 ML IVC SCH ×2 (05:07→13:05)
[2018-12-21 05:25] LABS: Hematocrit 25.9 % (35.3-44.9); Hemoglobin 8.4 g/dL (11.5-15.4); Immature Granulocytes % 1.1 % (0-4); Lymphocytes # 0.7 K/mcL (0.6-4.6); Lymphocytes % 18.5 %; Mean Corpuscular HGB Conc 32.4 g/dL (31.6-35.5); Mean Corpuscular Hemoglobin 32.4 pg (28.0-33.3); Mean Platelet Volume 10.5 fL (9.4-12.4); Monocytes # 0.6 K/mcL (0.0-1.3); Monocytes % 17.4 %; Neutrophils # 2.3 K/mcL (1.6-8.9); Platelet Count 155 K/mcL (140-400); Red Blood Count 2.59 M/mcL (3.82-4.97); Red Cell Distribution Width 21.5 % (11.5-14.5); White Blood Count 3.7 K/mcL (4.3-11.1)
[2018-12-21 05:31] LABS: INR 2.1; Prothrombin Time 23.4 Seconds (9.4-12.1)
[2018-12-21 05:33] LABS: Activated Partial Thrombo Time 35.7 Seconds (26.0-36.0)
[2018-12-21 05:44] LABS: Alanine Aminotransferase 14 Units/L (7-52); Albumin 2.1 g/dL (3.5-5.7); Albumin/Globulin Ratio 0.8 (1.1-2.2); Alkaline Phosphatase 283 Units/L (34-104); Aspartate Amino Transferase 40 Units/L (13-39); BUN/Creatinine Ratio 16 (6-26); Bilirubin,Indirect 1.7 mg/dL (0.0-1.2); Bilirubin,Total 3.7 mg/dL (0.3-1.0); Blood Urea Nitrogen 7 mg/dL (6-20); Calcium 7.9 mg/dL (8.6-10.3); Carbon Dioxide 26 mEq/L (23-29); Chloride 98 mEq/L (98-107); Globulin 2.7 g/dL (2.4-3.5); Glucose 168 mg/dL (70-105); Osmolality,Calculated 286 (280-300); Potassium 2.7 mEq/L (3.5-5.1); Sodium 137 mEq/L (136-145); Total Protein 4.8 g/dL (6.4-8.9); eGFR For African Americans > 60 (> 60); eGFR For Non-African Americans > 60 (> 60)
[2018-12-21] MEDS ORDERED: Potassium Chloride 40 MEQ, Lidocaine 1% 2 ML in D5% in Water 500 ML IVPB ONE (06:30)
[2018-12-21] MEDS: Nicotine 14 MG PATCH.TD24 TD SCH (08:10)
[2018-12-21] MEDS: Ondansetron ODT 4 MG TAB.RAPDIS SL PRN ×2 (09:00→15:55)
[2018-12-21] MEDS: *HR* LORazepam 0.5 MG TABLET PO PRN ×2 (13:06→20:45)
--- NOTE | 2018-12-21 13:57 | Internal Med Progress Note ---
Hospitalist Progress Note - Encounter Date of Encounter: 12/21/18 Time of Encounter: 13:54 - Subjective Interval History: Patient was seen and examined at bedside currently denies any pain or discomfort she did receive 1 unit PRBCs tolerated well currently receiving potassium rider. Discussed treatment plan with the patient she does voice some concern about not receiving chemotherapy today. Did speak with oncology who will see patient up on consult. - Exam Vitals: Temp Pulse Resp BP Pulse Ox 97.5 F L 99 16 104/63 100 12/21/18 11:12 12/21/18 11:12 12/21/18 11:12 12/21/18 11:12 12/21/18 11:12 Exam: General: NAD Skin: Jaundiced, warm and dry. HEENT: Dry mucous membranes. (+) conjunctivae pallor. Scleral icterus. Neck: No JVD. No carotid bruits. No palpable thyroid. Chest: Normal thoracic expansion. Normal breath sounds. Clear to auscultation. Heart: Normal S1 & S2; rhythmic. No rubs or murmurs. Abdomen: distended, soft and non-tender to palpation. No peritoneal reaction. Extremities: No calf tenderness. Normal distal pulses. Neurological: Somnolent but arousable. Oriented to person, place and time. No focal deficits. Psych: Affect appropriate. - Assessment and Plan (1) Hypokalemia Current Visit: Yes Status: Acute Assessment and Plan: 2.7 this a.m. we will replace and monitor (2) Anemia Current Visit: No Status: Acute Assessment and Plan: Likely from ongoing blood loss/malignant disease patient did receive 1 unit of PRBCs tolerated well we will continue to monitor (3) DVT prophylaxis Current Visit: No Status: Acute Assessment and Plan: scd (4) Esophageal cancer Current Visit: No Status: Chronic Assessment and Plan: PET/CT imaging 11/15/2018 with focal metabolic activity of the esophagogastric junction and addition to known metastatic disease involving the left supraclavicular lymph node, upper abdominal, retroperitoneal lymph node basins as well as extensive disease involving the liver. Metastatic cancer continue treatment plan per oncology patient -oncology has been consulted and appreciate recommendations she may benefit from palate care continue with analgesia (5) Hypertension Current Visit: No Status: Chronic Assessment and Plan: Currently controlled continue home medications (6) Ascites Current Visit: Yes Status: Chronic Assessment and Plan: Patient has ascites -diffuse multifocal liver metastatic disease she has not been able to have abdomen tapped due to coagulopathy-today INR is 2.1-IR will not perform paracentesis at this time we will continue to monitor - Time Spent with Patient Total time spent is greater than 50% in coordination of care (as documented) at patient's floor/unit and/or counseling patient: Internal Medicine: Result - Labs CBC & Chem 7: 12/21/18 04:45 12/21/18 04:45 Labs: Short CBC 12/20/18 12/21/18 Range/Units 16:25 04:45 WBC 2.7 L 3.7 L (4.3-11.1) K/mcL Hgb 7.4 L 8.4 L (11.5-15.4) g/dL Hct 23.0 L 25.9 L (35.3-44.9) % Plt Count 164 155 (140-400) K/mcL Neutrophils # 2.0 2.3 (1.6-8.9) K/mcL BMP 12/20/18 12/21/18 16:25 04:45 Sodium 134 L 137 Potassium 2.1 L* 2.7 L D Chloride 96 L 98 Carbon Dioxide 27 26 BUN 5 L 7 Creatinine 0.45 L 0.43 L Glucose 198 H 168 H Calcium 7.9 L 7.9 L Cardiac Enzymes 12/20/18 Range/Units 16:25 Troponin I 0.03 (< 0.04) ng/mL Liver Function 12/20/18 12/21/18 Range/Units 16:25 04:45 Total Bilirubin 4.1 H 3.7 H (0.3-1.0) mg/dL Direct Bilirubin 2.0 H (0.0-0.2) mg/dL AST 42 H 40 H (13-39) Units/L ALT 14 14 (7-52) Units/L Alkaline Phosphatase 296 H 283 H (34-104) Units/L Albumin 2.2 L 2.1 L (3.5-5.7) g/dL Urine 12/20/18 Range/Units 17:20 Urine Color Dark Yellow (Yellow) Urine Clarity Cloudy A (Clear) Urine pH 6.0 (5.0-8.0) pH Units Ur Specific [place] 1.012 (1.010-1.025) Urine Protein Trace (Neg-Trace) mg/dL Urine Glucose (UA) Normal (Normal) mg/dL - ABG Interpretation ABG results: PT/INR, D-dimer PT 23.4 Seconds (9.4-12.1) H 12/21/18 04:45 - Impressions Impressions Chest X-Ray 12/20/18 15:14 IMPRESSION: Low lung volumes. No acute cardiopulmonary process. D/ / 12/20/2018 15:47:59 Aurelio Cody MD / earnold Interpreting Provider: Aurelio Cody MD Consult Discharge Plan - Plan Referrals: Terra De La Garza CNP [Primary Care Provider] - 01/01/19 10:15 am (2) Anemia Qualifiers: Anemia type: unspecified type Qualified Code(s): D64.9 - Anemia, unspecified (4) Esophageal cancer Qualifiers: Malignant neoplasm of esophagus location: unspecified location Qualified Code(s): C15.9 - Malignant neoplasm of esophagus, unspecified (5) Hypertension Qualifiers: Hypertension type: essential hypertension Qualified Code(s): I10 - Essential (primary) hypertension (6) Ascites Qualifiers: Ascites type: malignant Qualified Code(s): R18.0 - Malignant ascites
--- NOTE | 2018-12-21 14:29 | Electrocardiograph Report ---
[address] [place], [place] [address] Test Date: 2018-12-20 Pat Name: Yamileth Montgomery Department: [id number] Room: 3B23 Gender: F Brush Stainer: : 1960 Requested By: [id number] Order Number: [id number] Reading MD: Niranjan Brown Measurements Intervals [place] Rate: 113 P: 59 [place]: 151 QRS: -30 QRSD: 128 T: -17 QT: 371 QTc: 509 Interpretive Statements Sinus tachycardia Right bundle branch block Anterolateral infarct, age indeterminate Electronically Signed On 12-21-2018 14:27:47 EDT by Niranjan Brown
--- NOTE | 2018-12-21 17:04 | Oncology Inp Consult Note ---
<Camila Herman - Last Filed: 12/21/18 16:58> Date of Encounter: 12/21/18 Time of Encounter: 15:05 Assessment and Plan (1) Esophageal cancer Status: Chronic Assessment and plan: Metastatic esophageal poorly differentiated carcinoma. She has extensive upper abdominal, retroperitoneal as well as liver metastases. PET/CT imaging with hypermetabolic uptake in the distal esophagus. She received cycle #1 of FOLFOX 11/21/2018. Received Oxaliplatin 12/20/18 5FU IVP and home infusion held and patient sent to ED via EMS for K 2.3. Plan: Treatment on hold while hospitalized. Qualifiers: Malignant neoplasm of esophagus location: unspecified location Qualified Code(s): C15.9 - Malignant neoplasm of esophagus, unspecified (2) Hypokalemia Status: Resolved Assessment and plan: K 2.3 at [facility]. Patient sent to ED via EMS. Patient tachycardic in infusion center HR 110-130s. Upon arrival to ED, potassium rechecked and resulted at 2.1 Patient admitted for potassium correction. Potassium 2.7 on AM draw. KCl infusing. Recheck ordered for this afternoon. On telemetry. EKG in ED. HR 90-100s Plan: Continue correction per primary team. (3) Ascites Status: Chronic Assessment and plan: Abdomen distended with worsening liver metastases and ascites. Paracentesis planned. INR elevated and unable to perform today. Patient presented to IR on 12/13/18 for paracentesis with INR 2.4. Procedure held and was to be monitored and rescheduled if patient with worsening symptoms. Plan: Continue to monitor INR. May not correct to desired level with extensive liver disease. Qualifiers: Ascites type: malignant Qualified Code(s): R18.0 - Malignant ascites - Data of Consult Patient: known to practice within the last 3 years Consult date: 12/21/18 Requesting Physician: Patrick Swann MD Primary Care Provider: Terra De La Garza CNP - Consult Narrative Reason for consult: metastatic esophageal carcionoma History of present illness: Yamileth, a 58 yo female with known metastatic esophageal carcinoma, [facility] after receiving Oxaliplatin due to hypokalemia (K 2.3). Upon redraw in ED, K 2.1. She completed the oxaliplatin, but did not receive 5FU IVP or her home infusion of 5FU and was brought to ED via EMS. Yamileth continues with IV replacement for her potassium per primary team. Today's K 2.7. KCl infusing and is planned for recheck this afternoon. She c/o nausea, belching and gas, constipation (last BM 12/20/18) and cold-sensitivity. Cold-sensitivity related to oxaliplatin. Discussed no ice or cold beverages with staff member in room. Patient's abdomen is distended. Hospital team planned for paracentesis; however, INR elevated and unable to do procedure today. She has known liver metastases. Total bilirubin 3.7 and direct bilirubin 2. Alk phos 283. AST 40 and ALT WNL. Oncology history: Metastatic esophageal poorly differentiated carcinoma. Patient presented with hypercalcemia and diffuse multifocal liver metastatic disease. PET/CT imaging 11/15/2018 with focal metabolic activity of the esophagogastric junction and addition to known metastatic disease involving the left supraclavicular lymph node, upper abdominal, retroperitoneal lymph node basins as well as extensive disease involving the liver. Primary oncologist: Dr. Sharp Current therapy: 1. FOLFOX initiated 11/21/2018 Received oxaliplatin 12/20/18 5FU bolus/home infusion held and patient sent to ED due to hypokalemia (K 2.3) Treatment intent: Palliative Past Med Surg Social Fam HX - Past Medical History Medical history: cancer, GERD, hypertension Additional medical history: seasonal allergies (pre-diabetic- metabolic syndrome). esophogeal cancer. liver cancer Psychiatric history: anxiety, panic disorder - Past Surgical History Surgical History: cholecystectomy - Social History Smoking Status: Never smoker Smokeless Tobacco Status: No Alcohol use: none Drug use: none - Family History Mother Adopted: No Living Status: Hx Family Cardiac Disorders: Yes Medications and Allergies Brompheniramine/Pseudoephed/Dm [Bromfed Dm Cough Syrup] 5 ml PO Q48H 10/28/18 [History] Montelukast [Singulair] 10 mg PO HS 10/28/18 [History] Omeprazole [PriLOSEC] 40 mg PO DAILY 10/28/18 [History] LORazepam [Ativan] 0.25 mg PO TID PRN 10/29/18 [History] Nicotine Patch [Nicoderm] 14 mg TD DAILY 21 Days #21 patch.td24 11/16/18 [Rx] HYDROcodone/Acet 5/325 mg [[place] 5-325 mg] 1 tab PO Q6H PRN 7 Days #28 tab 11/21/18 [Rx] Ondansetron ODT [Zofran ODT] 4 mg PO Q6H 30 Days #90 tab.rapdis 12/02/18 [Rx] Lidocaine/Prilocaine [Emla] 1 appl TP AD #1 tube 12/06/18 [Rx] Mirtazapine [Remeron] 7.5 mg PO HS 30 Days #15 tablet 12/06/18 [Rx] Nystatin [Nystatin Suspension] 500,000 units PO QID #120 ml 12/20/18 [Rx] Docusate [Colace] 15 - 30 ml PO DAILY PRN 12/21/18 [History] Potassium Chloride 0 ml PO AD 12/21/18 [History] Allergy/AdvReac Type Severity Reaction Status Date / Time Bleach (Sodium Hypochlorite) AdvReac Rash Verified 12/21/18 16:30 fexofenadine [From Jessica-D] AdvReac See Verified 12/21/18 16:30 Comments latex AdvReac Redness of Verified 12/21/18 16:30 Skin pseudoephedrine AdvReac See Verified 12/21/18 16:30 [From Jessica-D] Comments sulfamethoxazole AdvReac See Verified 12/21/18 16:30 [From Bactrim] Comments trimethoprim [From Bactrim] AdvReac See Verified 12/21/18 16:30 Comments Constitutional: Present: fatigue, weakness. Absent: chills, fever(s) Cardiovascular: Present: orthopnea. Absent: chest pain, palpitations Respiratory: Present: dyspnea on exertion Gastrointestinal: Present: abdominal pain, belching, bloating, constipation, nausea Additional comments: orange urine Musculoskeletal: Present: muscle weakness Neurological: Present: weakness Psychiatric: Present: anxiety, irritability, mood swings Oncology - Exam - Constitutional General appearance: no acute distress, thin - Respiratory Respiratory exam: Absent: respiratory distress - Cardiovascular Cardiovascular exam: Present: tachycardia - GI/Abdominal GI/Abdominal exam: Present: distended Oncology Inpatient Results Labs: Laboratory Results - last 24 hr 12/20/18 12/20/18 12/20/18 16:25 17:20 21:43 WBC RBC Hgb Hct MCV MCH MCHC RDW Plt Count MPV Immature Gran % Seg Neutrophils % Lymphocytes % Monocytes % Eosinophils % Basophils % Neutrophils # Lymphocytes # Monocytes # Eosinophils # Basophils # PT INR APTT Sodium Potassium Chloride Carbon Dioxide BUN Creatinine Est GFR ( Amer) Est GFR (Non-Af Amer) BUN/Creatinine Ratio Glucose Calculated Osmolality Calcium Total Bilirubin Direct Bilirubin Indirect Bilirubin AST ALT Alkaline Phosphatase Serum Total Protein Albumin Globulin Albumin/Globulin Ratio TSH 2.262 Urine Color Dark Yellow Urine Clarity Cloudy A Urine pH 6.0 Ur Specific [place] 1.012 Urine Protein Trace Urine Glucose (UA) Normal Urine Ketones Negative Urine Blood Negative Urine Nitrite Negative Urine Bilirubin Moderate H Urine Urobilinogen 2.0 H Ur Leukocyte Esterase Negative Urine Microscopic RBC 0-3 Urine Microscopic WBC 5-15 H Ur Squamous Epith Cells Many H Urine Bacteria Many H Hyaline Casts Few Urine Yeast Few H Ur Culture Indicated? YES A Blood Type A POSITIVE Antibody Screen NEGATIVE Crossmatch See Detail 12/21/18 12/21/18 12/21/18 04:45 04:45 04:45 WBC 3.7 L RBC 2.59 L Hgb 8.4 L Hct 25.9 L MCV 100.0 MCH 32.4 MCHC 32.4 RDW 21.5 H Plt Count 155 MPV 10.5 Immature Gran % 1.1 Seg Neutrophils % 63.0 Lymphocytes % 18.5 Monocytes % 17.4 Eosinophils % 0.0 Basophils % 0.0 Neutrophils # 2.3 Lymphocytes # 0.7 Monocytes # 0.6 Eosinophils # 0.0 Basophils # 0.0 PT 23.4 H INR 2.1 APTT 35.7 Sodium 137 Potassium 2.7 L D Chloride 98 Carbon Dioxide 26 BUN 7 Creatinine 0.43 L Est GFR ( Amer) > 60 Est GFR (Non-Af Amer) > 60 BUN/Creatinine Ratio 16 Glucose 168 H Calculated Osmolality 286 Calcium 7.9 L Total Bilirubin 3.7 H Direct Bilirubin 2.0 H Indirect Bilirubin 1.7 H AST 40 H ALT 14 Alkaline Phosphatase 283 H Serum Total Protein 4.8 L Albumin 2.1 L Globulin 2.7 Albumin/Globulin Ratio 0.8 L TSH Urine Color Urine Clarity Urine pH Ur Specific [place] Urine Protein Urine Glucose (UA) Urine Ketones Urine Blood Urine Nitrite Urine Bilirubin Urine Urobilinogen Ur Leukocyte Esterase Urine Microscopic RBC Urine Microscopic WBC Ur Squamous Epith Cells Urine Bacteria Hyaline Casts Urine Yeast Ur Culture Indicated? Blood Type Antibody Screen Crossmatch 12/21/18 15:11 WBC RBC Hgb Hct MCV MCH MCHC RDW Plt Count MPV Immature Gran % Seg Neutrophils % Lymphocytes % Monocytes % Eosinophils % Basophils % Neutrophils # Lymphocytes # Monocytes # Eosinophils # Basophils # PT INR APTT Sodium Potassium 2.9 L Chloride Carbon Dioxide BUN Creatinine Est GFR ( Amer) Est GFR (Non-Af Amer) BUN/Creatinine Ratio Glucose Calculated Osmolality Calcium Total Bilirubin Direct Bilirubin Indirect Bilirubin AST ALT Alkaline Phosphatase Serum Total Protein Albumin Globulin Albumin/Globulin Ratio TSH Urine Color Urine Clarity Urine pH Ur Specific [place] Urine Protein Urine Glucose (UA) Urine Ketones Urine Blood Urine Nitrite Urine Bilirubin Urine Urobilinogen Ur Leukocyte Esterase Urine Microscopic RBC Urine Microscopic WBC Ur Squamous Epith Cells Urine Bacteria Hyaline Casts Urine Yeast Ur Culture Indicated? Blood Type Antibody Screen Crossmatch Chest X-Ray 12/20/18 15:14 IMPRESSION: Low lung volumes. No acute cardiopulmonary process. D/ / 12/20/2018 15:47:59 Aurelio Cody MD / earnold Interpreting Provider: Aurelio Cody MD Consult Discharge Plan - Plan Referrals: Terra De La Garza CNP [Primary Care Provider] - 01/01/19 10:15 am Inpatient Charges Provider: Dr. Marge Garcia <JoseJared S - Last Filed: 12/21/18 19:19> Date of Encounter: 12/21/18 - Data of Consult Requesting Physician: Patrick Swann MD Primary Care Provider: Terra De La Garza CNP Inpatient Charges Provider: Dr. Marge Garcia Consult - Inpatient: [id number] - Attending Attestation I examined this patient and my medical decision-making was reviewed with the Advanced Practice Nurse. I agree with the documented findings, disposition and treatment plan as described except to the extent set forth below. 1. Metastatic esophageal poorly differentiated carcinoma. She has extensive upper abdominal, retroperitoneal as well as liver metastases. PET/CT imaging with hypermetabolic uptake in the distal esophagus. She is on palliative chemotherapy cycle 1 of FOLFOX 11/21/2018. She started cycle 3 on 12/20/2018 but subsequently hospitalized with hypokalemia. She missed home 5-FU infusion. Patient is anxious about that. Counseled her that she should still get benefit from cycle 3 chemotherapy. 2. Progressive abdominal distention and some ascites. Proceed with ultrasound and IR guided paracentesis if possible. Her INR is mildly elevated at 2.1 and this should not cause excessive bleeding. Her elevated INR is due to liver metastasis. She is not on anticoagulation or aspirin. If necessary would consider FFP 3. Hypokalemia. Potassium on admission 2.1 and its improving. She is tolerating chemotherapy fairly well with reversible neuropathy. 4. Anemia status post 1 unit of packed RBC transfusion hemoglobin improved to 8.4
[2018-12-21] MEDS: Mirtazapine 15 MG TABLET PO SCH (20:46)
[2018-12-22] MEDS ORDERED: *HR* Metoprolol 5 MG/5 ML VIAL IVP ONE (00:04)
[2018-12-22] MEDS ORDERED: 0.9 % Sodium Chloride 500 ML IVC PRN (04:24)
[2018-12-22] MEDS ORDERED: Albumin 25% 25gram/100mL 25 GM/100 ML IV.SOLN IVPB ONE (04:31)
[2018-12-22] MEDS: Nicotine 14 MG PATCH.TD24 TD SCH (08:20)
[2018-12-22 08:24] LABS: BUN/Creatinine Ratio 13 (6-26); Blood Urea Nitrogen 6 mg/dL (6-20); Carbon Dioxide 27 mEq/L (23-29); Chloride 100 mEq/L (98-107); Glucose 87 mg/dL (70-105); Osmolality,Calculated 289 (280-300); Potassium 2.8 mEq/L (3.5-5.1); Sodium 141 mEq/L (136-145); eGFR For African Americans > 60 (> 60); eGFR For Non-African Americans > 60 (> 60)
[2018-12-22 08:39] LABS: Eosinophils % 0.2 %; Hematocrit 23.2 % (35.3-44.9); Hemoglobin 7.5 g/dL (11.5-15.4); Lymphocytes # 1.4 K/mcL (0.6-4.6); Lymphocytes % 25.7 %; Mean Corpuscular HGB Conc 32.3 g/dL (31.6-35.5); Mean Corpuscular Hemoglobin 32.1 pg (28.0-33.3); Mean Corpuscular Volume 99.1 fL (83.0-100.0); Mean Platelet Volume 10.1 fL (9.4-12.4); Monocytes # 0.7 K/mcL (0.0-1.3); Monocytes % 12.7 %; Platelet Count 106 K/mcL (140-400); Red Blood Count 2.34 M/mcL (3.82-4.97); Red Cell Distribution Width 22.5 % (11.5-14.5); Segmented Neutrophils % 58.4 %; White Blood Count 5.4 K/mcL (4.3-11.1)
[2018-12-22] MEDS: Ondansetron ODT 4 MG TAB.RAPDIS SL PRN ×2 (08:43→20:15)
[2018-12-22] MEDS: *HR* LORazepam 0.5 MG TABLET PO PRN ×2 (08:43→20:14)
[2018-12-22] MEDS ORDERED: Potassium Chloride 40 MEQ, Lidocaine 1% 2 ML in D5% in Water 500 ML IVPB ONE (08:46)
[2018-12-22 08:48] LABS: INR 1.9; Prothrombin Time 21.8 Seconds (9.4-12.1)
[2018-12-22 08:57] LABS: Neutrophils # 3.2 K/mcL (1.6-8.9)
[2018-12-22 09:09] LABS: Alanine Aminotransferase 14 Units/L (7-52); Albumin 2.5 g/dL (3.5-5.7); Alkaline Phosphatase 276 Units/L (34-104); Aspartate Amino Transferase 47 Units/L (13-39); Bilirubin,Direct 2.1 mg/dL (0.0-0.2); Bilirubin,Indirect 1.6 mg/dL (0.0-1.2); Bilirubin,Total 3.7 mg/dL (0.3-1.0); Globulin 2.4 g/dL (2.4-3.5); Total Protein 4.9 g/dL (6.4-8.9)
--- NOTE | 2018-12-22 09:35 | Internal Med Progress Note ---
Hospitalist Progress Note - Encounter Date of Encounter: 12/22/18 Time of Encounter: 09:28 - Subjective Interval History: Patient was seen and examined at bedside. Overnight patient did have episode of hypertension as well as tachycardia and a low-grade temperature. Lactate was elevated at 5.5 patient was given IV fluid as well as albumin and blood pressure did improve to 90 systolic. Blood cultures have been drawn-from A port as well as peripheral- discussed with IR-patient will have paracentesis today. Due to change in condition and high risk for decline-patient will be transferred to for closer medical monitoring. Dr. Carter updated on patient's current condition. She and I did evaluate patient together at bedside. - Exam Vitals: Temp Pulse Resp BP Pulse Ox 98.6 F 116 16 93/57 95 12/22/18 07:24 12/22/18 07:24 12/22/18 07:24 12/22/18 07:24 12/22/18 07:24 Exam: General: NAD Skin: Jaundiced, warm and dry. HEENT: Dry mucous membranes. (+) conjunctivae pallor. Scleral icterus. Neck: No JVD. No carotid bruits. No palpable thyroid. Chest: Normal thoracic expansion. Normal breath sounds. Clear to auscultation. Heart: Normal S1 & S2; rhythmic. No rubs or murmurs. Abdomen: distended, soft and non-tender to palpation. No peritoneal reaction. Extremities: No calf tenderness. Normal distal pulses. Pedal edema bilaterally Neurological: Somnolent but arousable. Oriented to person, place and time. No focal deficits. Psych: Affect appropriate. - Assessment and Plan (1) Sepsis Current Visit: Yes Status: Suspected Assessment and Plan: Antony and had a low-grade temperature overnight became tachycardic and hypotensive white count was less than 4 on presentation up to 5.4 today-lactate was 5. 5 repeat lactate was 4.7 Suspect source-A port -which was placed approximately one month ago or ascities - awaiting IR for paracentesis today Blood cultures have been drawn Patient was given a fluid bolus as well as albumin overnight Continue to monitor lactate and vital signs We will initiate empiric antibiotic coverage once fluid obtained from paracentesis (2) Hypokalemia Current Visit: Yes Status: Acute Assessment and Plan: 2.8 this a.m. we will replace and monitor (3) Anemia Current Visit: No Status: Acute Assessment and Plan: Likely from ongoing blood loss/malignant disease patient did receive 1 unit of PRBCs tolerated well we will continue to monitor (4) DVT prophylaxis Current Visit: No Status: Acute Assessment and Plan: scd (5) Esophageal cancer Current Visit: No Status: Chronic Assessment and Plan: PET/CT imaging 11/15/2018 with focal metabolic activity of the esophagogastric junction and addition to known metastatic disease involving the left supraclavicular lymph node, upper abdominal, retroperitoneal lymph node basins as well as extensive disease involving the liver. Metastatic cancer continue treatment plan per oncology patient -oncology has been consulted and appreciate recommendations - continue with analgesia- At this time patient would like to remain a full code and is not interested in pallative care (6) Hypertension Current Visit: No Status: Chronic Assessment and Plan: Currently hypotensive - cont to monitor (7) Ascites Current Visit: Yes Status: Chronic Assessment and Plan: Patient has ascites -diffuse multifocal liver metastatic disease she has not been able to have abdomen tapped due to coagulopathy-today INR is 2.1-IR will not perform paracentesis at this time we will continue to monitor 12/22 INR 1.9 today discussed with IR patient will undergo paracentesis today ultrasound of abd Small to moderate ascites. Patient was given albumin last night will check hepatic panel (8) Hypotension Current Visit: Yes Status: Acute Assessment and Plan: systolic in the 80 overnight- patient was given IVF as well as albumin- up to 90 systolic suspect sepsis as well as hx of liver disease - Time Spent with Patient Total time spent is greater than 50% in coordination of care (as documented) at patient's floor/unit and/or counseling patient: Internal Medicine: Result - Labs CBC & Chem 7: 12/22/18 08:18 12/22/18 07:50 Labs: Short CBC 12/22/18 Range/Units 08:18 WBC 5.4 (4.3-11.1) K/mcL Hgb 7.5 L (11.5-15.4) g/dL Hct 23.2 L (35.3-44.9) % Plt Count 106 L (140-400) K/mcL BMP 12/21/18 12/22/18 15:11 07:50 Sodium 141 Potassium 2.9 L 2.8 L Chloride 100 Carbon Dioxide 27 BUN 6 Creatinine 0.48 L Glucose 87 Calcium 8.0 L Liver Function 12/22/18 Range/Units 07:50 Total Bilirubin 3.7 H (0.3-1.0) mg/dL Direct Bilirubin 2.1 H (0.0-0.2) mg/dL AST 47 H (13-39) Units/L ALT 14 (7-52) Units/L Alkaline Phosphatase 276 H (34-104) Units/L Albumin 2.5 L (3.5-5.7) g/dL - ABG Interpretation ABG results: PT/INR, D-dimer PT 21.8 Seconds (9.4-12.1) H 12/22/18 08:18 - Impressions Impressions Abdomen Ultrasound 12/21/18 19:11 IMPRESSION: Small to moderate ascites. D/ / Junior Silva MD / Junior Silva MD Interpreting Provider: Junior Silva MD Consult Discharge Plan - Plan Referrals: Terra De La Garza CNP [Primary Care Provider] - 01/01/19 10:15 am (1) Sepsis Qualifiers: Sepsis type: sepsis due to unspecified organism Qualified Code(s): A41.9 - Sepsis, unspecified organism (3) Anemia Qualifiers: Anemia type: unspecified type Qualified Code(s): D64.9 - Anemia, unspecified (5) Esophageal cancer Qualifiers: Malignant neoplasm of esophagus location: unspecified location Qualified Code(s): C15.9 - Malignant neoplasm of esophagus, unspecified (6) Hypertension Qualifiers: Hypertension type: essential hypertension Qualified Code(s): I10 - Essential (primary) hypertension (7) Ascites Qualifiers: Ascites type: malignant Qualified Code(s): R18.0 - Malignant ascites (8) Hypotension Qualifiers: Hypotension type: unspecified hypotension type Qualified Code(s): I95.9 - Hypotension, unspecified
[2018-12-22 09:46] LABS: Platelet Estimate Slight Decrease (Normal)
[2018-12-22 10:21] LABS: Albumin 2.7 g/dL (3.5-5.7); Globulin 2.6 g/dL (2.4-3.5); Total Protein 5.3 g/dL (6.4-8.9)
--- NOTE | 2018-12-22 10:37 | IR Procedure Note ---
Date of procedure: 12/22/18 Consent Obtained: Written consent Timeout: Correct patient and procedure verified, Correct site verified, Time out performed, Skin prep completed Local anesthetic: Lidocaine 1% Was there an administration assistant present: No Estimated blood loss (cc): 0 Complications: None; Tolerated procedure well Indications: ascites Procedure Performed: paracentesis Site/Technique: left abdomen, 8F Results/Findings (any specimens removed): moderate ascites Post Procedure Treatment Plan: dc to floor Specimen: ascites
[2018-12-22 11:29] LABS: RBC,Peritoneal Fluid < 0.002 M/mcL
[2018-12-22 11:44] LABS: Amylase,Peritoneal Fluid 10 Units/L (No Ref Range); Glucose,Peritoneal Fluid 94 mg/dL (No Ref Range); LDH,Peritoneal Fluid 176 Units/L (No Ref Range); Total Protein,Peritoneal Fluid < 3.0 g/dL
[2018-12-22 13:24] LABS: Basophils,Peritoneal Fluid 0 %; Eosinophils,Peritoneal Fluid 0 %
[2018-12-22 13:25] LABS: Appearance of Peritoneal Fl CLEAR (Clear)
--- NOTE | 2018-12-22 13:53 | Internal Med Progress Note ---
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 she had generalized weakness after her chemo yesterday also she hasascities . she underwent paracentesis today and 2661 ml of fluid were taken and was found to be exudative . she felt cold after the paracentesis , denies fever , nausea vomiting or chest or abdominal pain . - Exam Vitals: Temp Pulse Resp BP Pulse Ox 98.4 F 115 18 103/63 97 12/22/18 12:25 12/22/18 12:25 12/22/18 12:25 12/22/18 12:25 12/22/18 12:25 Exam: General: no acute distress , A&AX3 HEENT: Atraumatic, Normocephaly, sclera unicteric Neck: supple , Full ROM , trachea midline Cardiac: RRR , S1+. S2+ Lungs: Normal Breath Sounds Bilaterally, No Wheeze, Rales, Rhonchi Abdomen: Soft,distended Non-Tender ,no organomegaly , +bowel sounds Extremities: No Clubbing, No Cyanosis,or edema , Normal Pulses Skin : jaundice , no rash Psychiatric : normal affect, normal mood Nuero : alert, normal gait, oriented X3 - Assessment and Plan (1) Sepsis Current Visit: Yes Status: Suspected Assessment and Plan: patient meet sepsis criteria . temp 100.6, Hr 130 , blood pressure 93/57 . her lactate was 5.2 today and wbc <4 Suspect source-A port -which was placed approximately one month ago or ascities Blood cultures is pending Patient was given a fluid bolus as well as albumin she is now on 100ml/hr of lactated ringer Continue to monitor lactate and vital signs she is on zosyn day 2 will continue (2) Hypokalemia Current Visit: Yes Status: Acute Assessment and Plan: 2.8 this a.m. we replace it with 40 meq BID and will monitor (3) Anemia Current Visit: No Status: Acute Assessment and Plan: Likely from ongoing blood loss/malignant disease patient did receive 1 unit of PRBCs tolerated well today her hb is 7.5 continue monitoring (4) Ascites Current Visit: Yes Status: Chronic Assessment and Plan: Patient has ascites due to liver metastatic disease ultrasound of abd show Small to moderate ascites. we did paracentesis today and 2661 ml of fluid were taken , exudative (5) Esophageal cancer Current Visit: No Status: Chronic Assessment and Plan: PET/CT imaging 11/15/2018 with focal metabolic activity of the esophagogastric junction and addition to known metastatic disease involving the left supraclavicular lymph node, upper abdominal, retroperitoneal lymph node basins as well as extensive disease involving the liver. Metastatic cancer continue treatment plan per oncology patient -oncology has been consulted and appreciate recommendations - continue with analgesia- At this time patient would like to remain a full code and is not interested in pallative care - Time Spent with Patient Total time spent is greater than 50% in coordination of care (as documented) at patient's floor/unit and/or counseling patient: Internal Medicine: Result - Labs CBC & Chem 7: 12/22/18 08:18 12/22/18 15:23 Labs: Short CBC 12/22/18 Range/Units 08:18 WBC 5.4 (4.3-11.1) K/mcL Hgb 7.5 L (11.5-15.4) g/dL Hct 23.2 L (35.3-44.9) % Plt Count 106 L (140-400) K/mcL Neutrophils # 3.2 (1.6-8.9) K/mcL BMP 12/21/18 12/22/18 15:11 07:50 Sodium 141 Potassium 2.9 L 2.8 L Chloride 100 Carbon Dioxide 27 BUN 6 Creatinine 0.48 L Glucose 87 Calcium 8.0 L Liver Function 12/22/18 12/22/18 Range/Units 07:50 09:40 Total Bilirubin 3.7 H (0.3-1.0) mg/dL Direct Bilirubin 2.1 H (0.0-0.2) mg/dL AST 47 H (13-39) Units/L ALT 14 (7-52) Units/L Alkaline Phosphatase 276 H (34-104) Units/L Albumin 2.5 L 2.7 L (3.5-5.7) g/dL - ABG Interpretation ABG results: PT/INR, D-dimer PT 21.8 Seconds (9.4-12.1) H 12/22/18 08:18 - Impressions Impressions Abdomen Ultrasound 12/21/18 19:11 IMPRESSION: Small to moderate ascites. D/ / Junior Silva MD / Junior Silva MD Interpreting Provider: Junior Silva MD Paracentesis Ultrasound 12/22/18 09:20 IMPRESSION: Successful ultrasound guided paracentesis. D/ / Patsy Perez MD / Patsy Perez MD Interpreting Provider: Patsy Perez MD Consult Discharge Plan - Plan Referrals: Terra De La Garza CNP [Primary Care Provider] - 01/01/19 10:15 am (1) Sepsis Qualifiers: Sepsis type: sepsis due to unspecified organism Qualified Code(s): A41.9 - Sepsis, unspecified organism (3) Anemia Qualifiers: Anemia type: unspecified type Qualified Code(s): D64.9 - Anemia, unspecified (4) Ascites Qualifiers: Ascites type: malignant Qualified Code(s): R18.0 - Malignant ascites (5) Esophageal cancer Qualifiers: Malignant neoplasm of esophagus location: unspecified location Qualified Code(s): C15.9 - Malignant neoplasm of esophagus, unspecified
[2018-12-22] MEDS: Piperacillin/Tazobactam 3.375 GM in 0.9 % Sodium Chloride Mini Bag 100 ML IVPB SCH (15:46)
[2018-12-22 15:54] LABS: Magnesium 1.9 mg/dL (1.6-2.6)
--- NOTE | 2018-12-22 17:54 | Oncology Inp Progress Note ---
<GustavoEdvin - Last Filed: 12/22/18 17:56> Date of Encounter: 12/22/18 Oncology: Obj Data - Labs CBC & Chem 7: 12/22/18 08:18 12/22/18 15:23 Consult Discharge Plan - Plan Referrals: Terra De La Garza CNP [Primary Care Provider] - 01/01/19 10:15 am Inpatient Charges Provider: Dr. Miky Chen Follow up - Inpatient: [id number] - Attending Attestation I examined this patient and my medical decision-making was reviewed with the Advanced Practice Nurse. I agree with the documented findings, disposition and treatment plan as described except to the extent set forth below. Patient with esophageal adenocarcinoma. Admitted for hypokalemia. P/w ascites, c/s IR for paracentesis. Approximately 2.6 liters removed. Awaiting fluid analysis. Experienced a fever today, and currently on antibiotics. <BatshevaCamila - Last Filed: 12/23/18 19:21> Date of Encounter: 12/23/18 Time of Encounter: 16:30 (1) Esophageal cancer Current Visit: No Status: Chronic Assessment and plan: Metastatic esophageal poorly differentiated carcinoma. She has extensive upper abdominal, retroperitoneal as well as liver metastases. PET/CT imaging with hypermetabolic uptake in the distal esophagus. She received cycle #1 of FOLFOX 11/21/2018. Received Oxaliplatin 12/20/18 5FU IVP and home infusion held and patient sent to ED via EMS for K 2.3. Plan: Treatment on hold while hospitalized. Qualifiers: Malignant neoplasm of esophagus location: lower third Qualified Code(s): C15.5 - Malignant neoplasm of lower third of esophagus (2) Ascites Current Visit: Yes Status: Chronic Assessment and plan: Abdomen distended with worsening liver metastases and ascites. Paracentesis planned. INR elevated and unable to perform today. Patient presented to IR on 12/13/18 for paracentesis with INR 2.4. Procedure held and was to be monitored and rescheduled if patient with worsening symptoms. Paracentesis 12/22/18. Plan: Cytology pending. Qualifiers: Ascites type: malignant Qualified Code(s): R18.0 - Malignant ascites Oncology: Subj Interval history: Ms. Montgomery is awake and alert in bed this afternoon, with her best friend at bedside. She notes that she had her paracentesis and feeling a little better, but feeling cold. She also notes that she has had another fever and low blood pressure. - Constitutional General appearance: febrile, cooperative - Respiratory Respiratory exam: Present: decreased breath sounds. Absent: rhonchi - Cardiovascular Cardiovascular exam: Present: tachycardia - GI/Abdominal GI/Abdominal exam: Present: distended, guarding, tenderness - Neurological Exam Neurological exam: Present: alert, oriented X3 - Psychiatric Psychiatric exam: Present: agitated, depressed - Skin Skin exam: Present: diaphoretic Oncology: Obj Data - Labs CBC & Chem 7: 12/23/18 04:19 12/23/18 04:19
[2018-12-22] MEDS ORDERED: Ringers Solution, Lactated 1,000 ML IVC SCH (19:00)
[2018-12-22] MEDS: Mirtazapine 15 MG TABLET PO SCH (19:58)
[2018-12-22] MEDS: PSEUDOEPHEDRINE PO SCH (20:04)
[2018-12-22] MEDS: BROMPHENIRAMINE PO SCH (20:04)
[2018-12-22] MEDS: DEXTROMETHORPHAN PO SCH (20:04)
[2018-12-23] MEDS: Piperacillin/Tazobactam 3.375 GM in 0.9 % Sodium Chloride Mini Bag 100 ML IVPB SCH ×3 (02:43→18:09)
[2018-12-23 04:33] LABS: Eosinophils % 0.3 %
[2018-12-23 04:35] LABS: Hematocrit 24.6 % (35.3-44.9); Hemoglobin 7.9 g/dL (11.5-15.4); Immature Granulocytes % 1.8 % (0-4); Immature Platelets 3.6 % (1.1-6.1); Lymphocytes # 1.5 K/mcL (0.6-4.6); Lymphocytes % 19.6 %; Mean Corpuscular HGB Conc 32.1 g/dL (31.6-35.5); Mean Corpuscular Hemoglobin 32.6 pg (28.0-33.3); Mean Corpuscular Volume 101.7 fL (83.0-100.0); Mean Platelet Volume 11.5 fL (9.4-12.4); Monocytes # 0.9 K/mcL (0.0-1.3); Neutrophils # 5.1 K/mcL (1.6-8.9); Nucleated Red Blood Cells 0.3 /100 WBC (0); Red Blood Count 2.42 M/mcL (3.82-4.97); Red Cell Distribution Width 22.8 % (11.5-14.5); Segmented Neutrophils % 66.3 %; White Blood Count 7.7 K/mcL (4.3-11.1)
[2018-12-23 04:38] LABS: Platelet Count 89 K/mcL (140-400)
[2018-12-23 04:39] LABS: INR 2.2; Prothrombin Time 25.1 Seconds (9.4-12.1)
[2018-12-23 04:50] LABS: Magnesium 1.9 mg/dL (1.6-2.6)
[2018-12-23 04:55] LABS: Platelet Estimate Decreased (Normal)
[2018-12-23 04:56] LABS: Anisocytosis 1+ (Not Present); Reactive Lymphocytes Present (Not Present)
[2018-12-23] MEDS: Nicotine 14 MG PATCH.TD24 TD SCH (09:10)
[2018-12-23] MEDS: *HR* LORazepam 0.5 MG TABLET PO PRN ×2 (09:19→20:38)
[2018-12-23] MEDS: Ondansetron ODT 4 MG TAB.RAPDIS SL PRN ×2 (09:20→20:41)
--- NOTE | 2018-12-23 09:39 | Internal Med Progress Note ---
<Lorenzo Carter - Last Filed: 12/23/18 14:42> Hospitalist Progress Note - Encounter Date of Encounter: 12/23/18 - Exam Vitals: Temp Pulse Resp BP Pulse Ox 98.1 F 115 16 94/57 92 12/23/18 11:58 12/23/18 11:58 12/23/18 11:58 12/23/18 11:58 12/23/18 11:58 - Assessment and Plan (1) Esophageal cancer Current Visit: No Status: Chronic (2) Anemia Current Visit: No Status: Suspected (3) Hypokalemia Current Visit: Yes Status: Acute (4) DVT prophylaxis Current Visit: No Status: Acute (5) Ascites Current Visit: Yes Status: Chronic (6) Hypotension Current Visit: Yes Status: Resolved (7) Sepsis Current Visit: Yes Status: Suspected (8) Diabetes Current Visit: No Status: Chronic - Time Spent with Patient Total time spent is greater than 50% in coordination of care (as documented) at patient's floor/unit and/or counseling patient: Internal Medicine: Result - Labs CBC & Chem 7: 12/23/18 04:19 12/23/18 04:19 Labs: Short CBC 12/23/18 Range/Units 04:19 WBC 7.7 (4.3-11.1) K/mcL Hgb 7.9 L (11.5-15.4) g/dL Hct 24.6 L (35.3-44.9) % Plt Count 89 L (140-400) K/mcL Neutrophils # 5.1 (1.6-8.9) K/mcL BMP 12/22/18 12/23/18 15:23 04:19 Sodium 139 Potassium 3.0 L 3.2 L Chloride 105 Carbon Dioxide 24 BUN 6 Creatinine 0.49 L Glucose 77 Calcium 7.7 L Liver Function 12/23/18 Range/Units 04:19 Total Bilirubin 4.2 H (0.3-1.0) mg/dL AST 55 H (13-39) Units/L ALT 15 (7-52) Units/L Alkaline Phosphatase 287 H (34-104) Units/L Albumin 2.4 L (3.5-5.7) g/dL - ABG Interpretation ABG results: PT/INR, D-dimer PT 25.1 Seconds (9.4-12.1) H 12/23/18 04:19 - Impressions Impressions Echocardiogram 12/23/18 11:05 Impressions: LVEF 65-70%. Mild left ventricular diastolic dysfunction. Normal right ventricular structure and function. No significant valvular dysfunction. No evidence of pulmonary hypertension. Left Ventricular Wall Motion: Rest Echo Findings All wall segments showed normal motion. Findings: Study Quality * Technically sub-optimal due to poor echocardiographic windows. ECG Findings * Sinus tachycardia. * Sinus rhythm with BBB. Left Ventricle * LVEF 65-70%. * Normal LV chamber size, wall thickness and systolic function. * Mild left ventricular diastolic dysfunction. Right Ventricle * Normal right ventricular structure and function. Left Atrium * Normal left atrial size. Right Atrium * Normal right atrial size. Interatrial Septum * Interatrial septum not well evaluated. Aortic Valve * Trileaflet aortic valve with normal function. * No aortic stenosis. * No aortic regurgitation. Mitral Valve * No mitral stenosis. * Trace mitral regurgitation. * Mild mitral annular calcification Tricuspid Valve * Normal tricuspid valve structure. * No tricuspid stenosis. * Trace tricuspid regurgitation. * Unable to estimate RVSP due to lack of TR jet. * No evidence of pulmonary hypertension. * Estimated RA pressure is 3 mmHg. Pulmonic Valve * Pulmonic valve is not well visualized. * No pulmonic regurgitation. * No pulmonic stenosis. Aorta * Normally sized aortic root. Pericardium * There is a trivial pericardial effusion present. IVC * The IVC is not dilated. * > 50% respiratory change Consult Discharge Plan - Plan Referrals: Terra De La Garza CNP [Primary Care Provider] - 01/01/19 10:15 am - Attending Attestation I examined this patient and my medical decision-making was reviewed with the Resident Physician on 12/23/18. I agree with the documented findings, disposition and treatment plan as described except to the extent set forth below. Ms Montgomery is currently admitted for fever and hypotension in the setting of metastatic esophageal cancer. She remains moderate to high risk due to potential for worsening clinical status. Ms Montgomery feels better today. No further fever. No new pain. Able to take deeper breaths after paracentesis. Cultures negative thus far. Exam: Alert. Comfortable. Mucus membranes dry. NC. Neck supple. EOMI. Heart reg and tachy. Decreased breath sounds. Abd distended. Fluid wave present. Edema present. No rash. Moves all extremities. Plan: Monitor volume status. Await culture results. No abx at this time. OK to access port. Probable d/c tomorrow if stable. <Aurelio Ruby - Last Filed: 12/23/18 21:06> Hospitalist Progress Note - Encounter Date of Encounter: 12/23/18 Time of Encounter: 09:37 - Subjective Interval History: Patient seen and examined resting comfortably in bed. Patient reports feeling better today has remained afebrile. She is tachycardic. Abdomen remains soft and mildly distended status post paracentesis. Cultures show no growth to date. Potassium was supplemented. - Exam Vitals: Temp Pulse Resp BP Pulse Ox 98.7 F 115 18 113/70 92 12/23/18 07:46 12/23/18 07:46 12/23/18 07:46 12/23/18 07:46 12/23/18 07:46 Exam: General: no acute distress, A&AX3 HEENT: Atraumatic, Normocephalic, no scleral icterus Neck: supple, Full ROM , trachea midline Cardiac: RRR , S1+. S2+ Lungs: Normal Breath Sounds Bilaterally, No Wheeze, Rales, Rhonchi Abdomen: Soft, distended, Non-Tender ,no organomegaly , +bowel sounds Extremities: No Clubbing, No Cyanosis,or edema , Normal Pulses Skin : jaundice, no rash Psychiatric : normal affect, normal mood Nuero : alert, normal gait, oriented X3 - Assessment and Plan (1) Sepsis Current Visit: Yes Status: Suspected Assessment and Plan: Patient met sepsis criteria with temp 100.6F, HR 130, and SBP as possible source of infection. Blood cultures show no growth to date Ascites fluid culture shows no growth to date. Lactate 5.2 Continue to trend lactate. She remains tachycardic. Echo revealed LVEF 65-70%. Mild left ventricular diastolic dysfunction. Normal right ventricular structure and function. No significant valvular dysfunction. No evidence of pulmonary hypertension. Continue Zosyn day 3 (2) Esophageal cancer Current Visit: No Status: Chronic Assessment and Plan: PET/CT imaging 11/15/2018 with focal metabolic activity of the esophagogastric junction and addition to known metastatic disease involving the left supraclavicular lymph node, upper abdominal, retroperitoneal lymph node basins as well as extensive disease involving the liver. Metastatic cancer continue treatment plan per oncology patient -oncology has been consulted and appreciate recommendations. Continue with analgesia- At this time patient would like to remain a full code and is not interested in pallative care Outpatient follow-up. (3) Ascites Current Visit: Yes Status: Chronic Assessment and Plan: Patient has ascites -diffuse multifocal liver metastatic disease she has not been able to have abdomen tapped due to coagulopathy- Ultrasound of abd small to moderate ascites. Patient was given albumin. Paracentesis yeilded 2661 ml of exudative fluid Culture shows no growth to date. Continue Zosyn, deescalate antibiotics based on culture results (4) Hypotension Current Visit: Yes Status: Resolved Assessment and Plan: Improved after IVF and albumin Echo revealed LVEF 65-70%. Mild left ventricular diastolic dysfunction. Normal right ventricular structure and function. No significant valvular dysfunction. No evidence of pulmonary hypertension. Continue close monitoring (5) Anemia Current Visit: No Status: Suspected Assessment and Plan: Likely from ongoing blood loss/malignant disease patient did receive 1 unit of PRBCs and 1 unit plasma. Continue to monitor (6) Hypokalemia Current Visit: Yes Status: Acute Assessment and Plan: Replace potassium and monitor Magnesium level within normal limits. (7) DVT prophylaxis Current Visit: No Status: Acute Assessment and Plan: scds - Time Spent with Patient Total time spent is greater than 50% in coordination of care (as documented) at patient's floor/unit and/or counseling patient: Internal Medicine: Result - Labs CBC & Chem 7: 12/23/18 04:19 12/23/18 04:19 Labs: Short CBC 12/22/18 12/23/18 Range/Units 08:18 04:19 WBC 7.7 (4.3-11.1) K/mcL Hgb 7.9 L (11.5-15.4) g/dL Hct 24.6 L (35.3-44.9) % Plt Count 89 L (140-400) K/mcL Neutrophils # 3.2 5.1 (1.6-8.9) K/mcL BMP 12/22/18 15:23 Potassium 3.0 L Liver Function 12/22/18 Range/Units 09:40 Albumin 2.7 L (3.5-5.7) g/dL - ABG Interpretation ABG results: PT/INR, D-dimer PT 25.1 Seconds (9.4-12.1) H 07/20/19 04:19 - Impressions Impressions Paracentesis Ultrasound 12/22/18 09:20 IMPRESSION: Successful ultrasound guided paracentesis. D/ / Patsy Perez MD / Patsy Perez MD Interpreting Provider: Patsy Perez MD <Lorenzo Carter - Last Filed: 12/23/18 14:42> (1) Esophageal cancer Qualifiers: Malignant neoplasm of esophagus location: lower third Qualified Code(s): C15.5 - Malignant neoplasm of lower third of esophagus (2) Anemia Qualifiers: Anemia type: other cause Other causes of anemia: chronic disease, neoplastic Qualified Code(s): D63.0 - Anemia in neoplastic disease (5) Ascites Qualifiers: Ascites type: malignant Qualified Code(s): R18.0 - Malignant ascites (6) Hypotension Qualifiers: Hypotension type: unspecified hypotension type Qualified Code(s): I95.9 - Hypotension, unspecified (7) Sepsis Qualifiers: Sepsis type: sepsis due to unspecified organism Qualified Code(s): A41.9 - Sepsis, unspecified organism (8) Diabetes Qualifiers: Diabetes mellitus type: type 2 Diabetes mellitus mix house tender insulin use: george wetzel mix house tender use Qualified Code(s): E11.9 - Type 2 diabetes mellitus without complications <Aurelio Ruby - Last Filed: 12/23/18 21:06> (1) Sepsis Qualifiers: Sepsis type: sepsis due to unspecified organism Qualified Code(s): A41.9 - Sepsis, unspecified organism (2) Esophageal cancer Qualifiers: Malignant neoplasm of esophagus location: lower third Qualified Code(s): C15.5 - Malignant neoplasm of lower third of esophagus (3) Ascites Qualifiers: Ascites type: malignant Qualified Code(s): R18.0 - Malignant ascites (4) Hypotension Qualifiers: Hypotension type: unspecified hypotension type Qualified Code(s): I95.9 - Hypotension, unspecified (5) Anemia Qualifiers: Anemia type: other cause Other causes of anemia: chronic disease, neoplastic
[2018-12-23 10:17] LABS: Alanine Aminotransferase 15 Units/L (7-52); Albumin 2.4 g/dL (3.5-5.7); Alkaline Phosphatase 287 Units/L (34-104); Aspartate Amino Transferase 55 Units/L (13-39); BUN/Creatinine Ratio 12 (6-26); Bilirubin,Total 4.2 mg/dL (0.3-1.0); Blood Urea Nitrogen 6 mg/dL (6-20); Carbon Dioxide 24 mEq/L (23-29); Chloride 105 mEq/L (98-107); Glucose 77 mg/dL (70-105); Osmolality,Calculated 284 (280-300); Potassium 3.2 mEq/L (3.5-5.1); Sodium 139 mEq/L (136-145); Total Protein 4.7 g/dL (6.4-8.9); eGFR For African Americans > 60 (> 60); eGFR For Non-African Americans > 60 (> 60)
[2018-12-23 10:18] LABS: Globulin 2.3 g/dL (2.4-3.5)
[2018-12-23 10:39] LABS: Calcium 7.7 mg/dL (8.6-10.3)
[2018-12-23] MEDS ORDERED: Potassium Chloride Elixir 20 MEQ/15 ML UDC PO ONE (11:30)
[2018-12-23] MEDS: Mirtazapine 15 MG TABLET PO SCH (20:24)
[2018-12-23] MEDS: Potassium Chloride Elixir 20 MEQ/15 ML UDC PO SCH (20:44)
[2018-12-24] MEDS: Piperacillin/Tazobactam 3.375 GM in 0.9 % Sodium Chloride Mini Bag 100 ML IVPB SCH ×2 (00:55→09:04)
[2018-12-24] MEDS ORDERED: Preparation H Ointment 30 GM TUBE RC PRN (01:14)
[2018-12-24 04:40] LABS: Basophils % 0.2 %; Eosinophils % 0.3 %; Hemoglobin 7.4 g/dL (11.5-15.4); Mean Corpuscular Volume 100.9 fL (83.0-100.0)
[2018-12-24 04:42] LABS: Hematocrit 23.2 % (35.3-44.9); Immature Granulocytes % 2.3 % (0-4); Immature Platelets 4.1 % (1.1-6.1); Lymphocytes # 1.4 K/mcL (0.6-4.6); Lymphocytes % 13.8 %; Mean Corpuscular HGB Conc 31.9 g/dL (31.6-35.5); Mean Corpuscular Hemoglobin 32.2 pg (28.0-33.3); Mean Platelet Volume 11.1 fL (9.4-12.4); Monocytes % 10.4 %; Neutrophils # 7.3 K/mcL (1.6-8.9); Platelet Count 76 K/mcL (140-400); Red Cell Distribution Width 22.8 % (11.5-14.5)
[2018-12-24 04:50] LABS: INR 2.2; Prothrombin Time 24.5 Seconds (9.4-12.1)
[2018-12-24 04:51] LABS: Alanine Aminotransferase 15 Units/L (7-52); Albumin 2.3 g/dL (3.5-5.7); Alkaline Phosphatase 278 Units/L (34-104); Aspartate Amino Transferase 51 Units/L (13-39); BUN/Creatinine Ratio 13 (6-26); Bilirubin,Total 4.5 mg/dL (0.3-1.0); Blood Urea Nitrogen 6 mg/dL (6-20); Calcium 7.8 mg/dL (8.6-10.3); Carbon Dioxide 23 mEq/L (23-29); Chloride 108 mEq/L (98-107); Globulin 2.3 g/dL (2.4-3.5); Glucose 99 mg/dL (70-105); Osmolality,Calculated 284 (280-300); Phosphorous 1.2 mg/dL (2.7-4.5); Potassium 3.6 mEq/L (3.5-5.1); Sodium 138 mEq/L (136-145); Total Protein 4.6 g/dL (6.4-8.9); eGFR For African Americans > 60 (> 60); eGFR For Non-African Americans > 60 (> 60)
--- NOTE | 2018-12-24 07:27 | Discharge Summary ---
<Aurelio Ruby - Last Filed: 12/24/18 10:20> - NOTES TO OUTPATIENT PROVIDER Notes to Outpatient Provider: Patient with metastatic esophageal cancer admitted with ascites, fever, abdominal pain, jaundice, and hypotension. Had 2.6L ascites fluid drained during paracentesis. Treated emperically with IV Zosyn x3 days, cultures negative thus far. Follow up on culture results. Monitor electrolytes. Outpatient work up for tachycardia. Orders not resulted at time of discharge: Pending orders 12/21/18 23:43 EKG [ECG 12 lead ECG] [ECG] Stat 12/22/18 09:02 Culture,Blood [BC] Stat 12/22/18 09:40 Culture,Blood [BC] Stat 12/22/18 10:24 Culture,Body Fluid [RM] Routine 12/22/18 10:25 Cytology Other [PTH] Routine Date of Encounter: 12/24/18 Time of Encounter: 07:25 - Discharge Diagnosis (1) Sepsis Priority: Primary Status: Suspected Qualifiers: Sepsis type: sepsis due to unspecified organism Qualified Code(s): A41.9 - Sepsis, unspecified organism (2) Esophageal cancer Priority: Secondary Status: Chronic Qualifiers: Malignant neoplasm of esophagus location: lower third Qualified Code(s): C15.5 - Malignant neoplasm of lower third of esophagus (3) Ascites Priority: Secondary Status: Chronic Qualifiers: Ascites type: malignant Qualified Code(s): R18.0 - Malignant ascites (4) Hypotension Priority: Secondary Status: Resolved Qualifiers: Hypotension type: unspecified hypotension type Qualified Code(s): I95.9 - Hypotension, unspecified (5) Anemia Priority: Secondary Status: Suspected Qualifiers: Anemia type: other cause Other causes of anemia: chronic disease, neop lastic Qualified Code(s): D63.0 - Anemia in neoplastic disease (6) Hypokalemia Priority: Secondary Status: Acute (7) Hypophosphatasia Priority: Secondary Status: Acute (8) DVT prophylaxis Priority: Secondary Status: Acute Hospital course: Ms. Montgomery is a 58 year old female with metastatic esophageal cancer on palliative chemotherapy admitted with ascites, fever, abdominal pain, jaundice, and hypotension. Patient met sepsis criteria with with temp 100.6F, HR 130, and SBP as possible source of infection. Lactic acid decreased from 5.5 to 2.8 and patient had paracentesis with 2.6L exudative ascites fluid drained on 12/22/18. She was treated emperically with IV Zosyn x3 days, cultures show no growth to date. Potentila etiology of exudative ascites fluid includes malignancy. Follow up on culture results. Monitor electrolytes. Patient found to have a potassium of 2.1 on arrival. Potassium and phosphorous were replaced. Recommend outpatient work up for tachycardia. TSH WNL. Echo revealed LVEF 65-70%, mild left ventricular diastolic dysfunction, normal right ventricular structure and function, no significant valvular dysfunction, and no evidence of pulmonary hypertension. Abdominal pain improved after the paracentesis and patient requested discharged to home with outpatient follow-up. Discharge discussed with: patient, family, nurse - Time Spent with Patient Total time spent providing and/or coordinating discharge services: - Discharge Medications Prescriptions: New Sucralfate [Carafate] 1 gm PO QIDAC PRN #60 tablet PRN Reason: Belching Continued Brompheniramine/Pseudoephed/Dm [Bromfed Dm Cough Syrup] 5 ml PO Q48H Montelukast [Singulair] 10 mg PO HS Omeprazole [PriLOSEC] 40 mg PO DAILY LORazepam [Ativan] 0.25 mg PO TID PRN PRN Reason: Anxiety Nicotine Patch [Nicoderm] 14 mg TD DAILY 21 Days #21 patch.td24 HYDROcodone/Acet 5/325 mg [[place] 5-325 mg] 1 tab PO Q6H PRN 7 Days #28 tab PRN Reason: Pain Ondansetron ODT [Zofran ODT] 4 mg PO Q6H 30 Days #90 tab.rapdis Mirtazapine [Remeron] 7.5 mg PO HS 30 Days #15 tablet Lidocaine/Prilocaine [Emla] 1 appl TP AD #1 tube Nystatin [Nystatin Suspension] 500,000 units PO QID #120 ml Docusate [Colace] 15 - 30 ml PO DAILY PRN PRN Reason: Constipation Potassium Chloride 0 ml PO AD Home Medications: Brompheniramine/Pseudoephed/Dm [Bromfed Dm Cough Syrup] 5 ml PO Q48H 10/28/18 [History] Montelukast [Singulair] 10 mg PO HS 10/28/18 [History] Omeprazole [PriLOSEC] 40 mg PO DAILY 10/28/18 [History] LORazepam [Ativan] 0.25 mg PO TID PRN 10/29/18 [History] Nicotine Patch [Nicoderm] 14 mg TD DAILY 21 Days #21 patch.td24 11/16/18 [Rx] HYDROcodone/Acet 5/325 mg [[place] 5-325 mg] 1 tab PO Q6H PRN 7 Days #28 tab 11/21/18 [Rx] Ondansetron ODT [Zofran ODT] 4 mg PO Q6H 30 Days #90 tab.rapdis 12/02/18 [Rx] Lidocaine/Prilocaine [Emla] 1 appl TP AD #1 tube 12/06/18 [Rx] Mirtazapine [Remeron] 7.5 mg PO HS 30 Days #15 tablet 12/06/18 [Rx] Nystatin [Nystatin Suspension] 500,000 units PO QID #120 ml 12/20/18 [Rx] Docusate [Colace] 15 - 30 ml PO DAILY PRN 12/21/18 [History] Potassium Chloride 0 ml PO AD 12/21/18 [History] Sucralfate [Carafate] 1 gm PO QIDAC PRN #60 tablet 12/24/18 [Rx] Allergies/Adverse Reactions: Allergy/AdvReac Type Severity Reaction Status Date / Time Bleach (Sodium Hypochlorite) AdvReac Rash Verified 12/21/18 16:30 fexofenadine [From Jessica-D] AdvReac See Verified 12/21/18 16:30 Comments latex AdvReac Redness of Verified 12/21/18 16:30 Skin pseudoephedrine AdvReac See Verified 12/21/18 16:30 [From Jessica-D] Comments sulfamethoxazole AdvReac See Verified 12/21/18 16:30 [From Bactrim] Comments trimethoprim [From Bactrim] AdvReac See Verified 12/21/18 16:30 Comments Date of admission: 12/20/18 23:31 Primary care physician: Terra De La Garza CNP Consults: 12/20/18 20:49 Consult to Interventional Radiology [CONS] Routine Consulting Provider: Radiology Interventional [facility] Reason for Consult: 58 year old woman with liver cancer who needs a therapeutic paracentesis Call Completed: No 12/21/18 08:11 Consult to Occupational Therapy [CONS] Routine Comment: Evaluate, develop and implement POC Reason for Consult: WEAKNESS Does patient have active BEDREST order?: No Is patient medically & hemodynamically stable?: Yes Consult to Physical Therapy [CONS] Routine Comment: Evaluate, develop and implement POC Reason for Consult: WEAKNESS Does patient have active BEDREST order?: No Is patient medically & hemodynamically stable?: Yes 12/21/18 12:31 Consult to Oncology [CONS] Routine Consulting Provider: [facility] Reason for Consult: mestatic esophageal carcinoma Time Notified: 12:33 Call Completed: Yes Discharging clinician: Aurelio Ruby Anticipated date of discharge: 12/24/18 - Constitutional Vitals: Temp Pulse Resp BP Pulse Ox 97.8 F 112 18 103/68 96 12/24/18 07:21 12/24/18 07:21 12/24/18 07:21 12/24/18 07:21 12/24/18 07:21 Exam: General: no acute distress, A&AX3 HEENT: Atraumatic, Normocephalic, mild scleral icterus Neck: supple, Full ROM , trachea midline Cardiac: RRR , S1+. S2+ Lungs: Normal Breath Sounds Bilaterally, No Wheeze, Rales, Rhonchi Abdomen: Soft, distended, Non-Tender ,no organomegaly , +bowel sounds Extremities: No Clubbing, No Cyanosis,or edema , Normal Pulses Skin : jaundice, no rash Psychiatric : normal affect, normal mood Nuero : alert, normal gait, oriented X3 - Patient Status Disposition: Home, Self-Care Condition: Fair Overall status at discharge: patient is progressing back to baseline - Discharge Instructions Follow Up With: Terra De La Garza CNP [Primary Care Provider] - 01/01/19 10:15 am - Diet and Activity Activity: increase activity as tolerated Diet: regular diet <Lorenzo Carter - Last Filed: 12/24/18 14:15> Orders not resulted at time of discharge: Pending orders 12/21/18 23:43 EKG [ECG 12 lead ECG] [ECG] Stat 12/22/18 09:02 Culture,Blood [BC] Stat 12/22/18 09:40 Culture,Blood [BC] Stat 12/22/18 10:24 Culture,Body Fluid [RM] Routine 12/22/18 10:25 Cytology Other [PTH] Routine Date of Encounter: 12/24/18 - Discharge Diagnosis (1) Esophageal cancer Priority: Primary Status: Chronic Qualifiers: Malignant neoplasm of esophagus location: lower third Qualified Code(s): C15.5 - Malignant neoplasm of lower third of esophagus (2) Anemia Status: Suspected Qualifiers: Anemia type: other cause Other causes of anemia: chronic disease, neoplastic Qualified Code(s): D63.0 - Anemia in neoplastic disease (3) Hypokalemia Status: Acute (4) DVT prophylaxis Status: Acute (5) Ascites Status: Chronic Qualifiers: Ascites type: malignant Qualified Code(s): R18.0 - Malignant ascites (6) Hypotension Status: Resolved Qualifiers: Hypotension type: unspecified hypotension type Qualified Code(s): I95.9 - Hypotension, unspecified (7) Sepsis Status: Ruled-out Qualifiers: Sepsis type: sepsis due to unspecified organism Qualified Code(s): A41.9 - Sepsis, unspecified organism (8) Diabetes Priority: Secondary Status: Chronic Qualifiers: Diabetes mellitus type: type 2 Diabetes mellitus residential insulin use: without intermediate accountant use Qualified Code(s): E11.9 - Type 2 diabetes mellitus without complications Hospital course: Ms. Montgomery is a 58 year old female - Time Spent with Patient Total time spent providing and/or coordinating discharge services: Date of admission: 12/20/18 23:31 Primary care physician: Terra De La Garza CNP Consults: 12/20/18 20:49 Consult to Interventional Radiology [CONS] Routine Consulting Provider: Radiology Interventional Cols Reason for Consult: 58 year old woman with liver cancer who needs a therapeutic paracentesis Call Completed: No 12/21/18 08:11 Consult to Occupational Therapy [CONS] Routine Comment: Evaluate, develop and implement POC Reason for Consult: WEAKNESS Does patient have active BEDREST order?: No Is patient medically & hemodynamically stable?: Yes Consult to Physical Therapy [CONS] Routine Comment: Evaluate, develop and implement POC Reason for Consult: WEAKNESS Does patient have active BEDREST order?: No Is patient medically & hemodynamically stable?: Yes 12/21/18 12:31 Consult to Oncology [CONS] Routine Consulting Provider: [facility] Reason for Consult: mestatic esophageal carcinoma Time Notified: 12:33 Call Completed: Yes - Constitutional Vitals: Temp Pulse Resp BP Pulse Ox 97.9 F 110 18 103/61 96 12/24/18 11:46 12/24/18 11:46 12/24/18 11:46 12/24/18 11:46 12/24/18 11:46 - Attending Attestation I examined this patient and my medical decision-making was reviewed with the Resident Physician on 12/24/18. I agree with the documented findings, disposition and treatment plan as described except to the extent set forth below. Ms Montgomery has been hospitalized for hypokalemia. She developed hypotension and concern for sepsis. Cultures were negative. She had paracentesis and 2600ml removed. No infection noted. She was continued on IV fluids. TOday she is afebrile. She is ready for discharge. Exam: Alert. Comfortable. Mucus membranes dry. Neck supple. Heart tachy and regular. Decreased breath sounds. ABd distended. No rash. Plan D/C today. D/C time 32min
[2018-12-24] MEDS ORDERED: Sucralfate 1 GM TABLET PO PRN (08:58)
[2018-12-24] MEDS: Potassium Chloride Elixir 20 MEQ/15 ML UDC PO SCH (09:03)
[2018-12-24] MEDS: Nicotine 14 MG PATCH.TD24 TD SCH (09:05)
[2018-12-24] MEDS: Ondansetron ODT 4 MG TAB.RAPDIS SL PRN (09:30)
[2018-12-24] MEDS: *HR* LORazepam 0.5 MG TABLET PO PRN (09:30)
[2018-12-24 11:47] VITALS: BP 103/61
--- NOTE | 2018-12-25 10:35 | Electrocardiograph Report ---
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
== END 2018-12-24 13:31 | disposition home or self-care (01) | DRG 872 ==
LOC: EMEROOARM 14:54 → 3BNU 14:54 → SUATTDRO 23:31 → 2NNU 12-22 12:07
PROVIDERS: ADMIT Student in an Organized Health Care Education/Training Program; ATTEND Internal Medicine

== ENCOUNTER 2019-01-03 11:40 | Inpatient (IN) ==
[2019-01-03] MEDS ORDERED: Naloxone 0.4 MG/ML INJ IVP PRN (15:40)
[2019-01-03] MEDS: Lactulose Oral Soln 20 GM/30 ML UDC PO SCH ×2 (16:45→21:43)
[2019-01-03] MEDS: 0.9 % Sodium Chloride 1,000 ML IVC SCH (16:45)
[2019-01-03] MEDS: cefTRIAXone 1,000 MG in Water for inj. (sterile) 10 ML IVP SCH (16:53)
[2019-01-03 17:33] LABS: Alanine Aminotransferase 16 Units/L (7-52); Albumin 2.4 g/dL (3.5-5.7); Albumin/Globulin Ratio 0.9 (1.1-2.2); Alkaline Phosphatase 365 Units/L (34-104); Aspartate Amino Transferase 67 Units/L (13-39); BUN/Creatinine Ratio 14 (6-26); Bilirubin,Total 4.4 mg/dL (0.3-1.0); Blood Urea Nitrogen 6 mg/dL (6-20); Calcium 11.6 mg/dL (8.6-10.3); Carbon Dioxide 22 mEq/L (23-29); Chloride 108 mEq/L (98-107); Globulin 2.7 g/dL (2.4-3.5); Glucose 87 mg/dL (70-105); Osmolality,Calculated 277 (280-300); Potassium 3.8 mEq/L (3.5-5.1); Sodium 135 mEq/L (136-145); Total Protein 5.1 g/dL (6.4-8.9); eGFR For African Americans > 60 (> 60); eGFR For Non-African Americans > 60 (> 60)
[2019-01-03] MEDS: Ketorolac 15 MG/ML VIAL IVP PRN (17:33)
[2019-01-03] MEDS: Ondansetron 4 MG/2 ML VIAL IVP PRN (17:33)
--- NOTE | 2019-01-03 19:41 | Internal Med History&Physical ---
Date of Encounter: 01/03/19 Time of Encounter: 16:00 Internal Medicine - H&P: HPI Chief complaint: Weakness and falls, intermittent confusion History of present illness: Ms. Montgomery is a 58 year old female with a pmh of esophageal carcinoma with liver metastases on palliative chemotherapy with recent multiple admissions presenting with complaints of weakness and falls for the last couple of days. Patient was supposed to see Dr Sharp today for a follow up today, but says she was feeling very tired and couldn't get up and called DR Sharp who asked her to either call hospice or call the squad to bring her to the ER. She reports having fallen twice in the last week due to weakness but denies passing out. A CT scan of the head showed no acute findings at [facility]. She was however noted to have a lactic acid of 3.0, an ammonia of 60 and a calcium of 13 and a leukocytosis of 14. She was started on Iv fluids and ceftriaxone and she was transferred here for further management. She also complains of worsening abdominal swelling Past Med Surg Social Fam HX - Past Medical History Medical history: cancer, GERD, hypertension Additional medical history: seasonal allergies (pre-diabetic- metabolic syndrome). esophogeal cancer, hemorrhoids. liver cancer Psychiatric history: anxiety, panic disorder - Past Surgical History Surgical History: cholecystectomy Additional surgical history: paracentesis 2 weeks ago, A-port insertion - Social History Smoking Status: Current every day smoker Smokeless Tobacco Status: No Alcohol use: none Drug use: none - Family History Mother Adopted: No Living Status: Hx Family Cardiac Disorders: Yes - Additional Family History Additional family history: Family history reviewed and non contributory Internal Medicine - H&P: Meds Brompheniramine/Pseudoephed/Dm [Bromfed Dm Cough Syrup] 5 ml PO Q48H 10/28/18 [History] Montelukast [Singulair] 10 mg PO HS 10/28/18 [History] Omeprazole [PriLOSEC] 40 mg PO DAILY 10/28/18 [History] LORazepam [Ativan] 0.25 mg PO TID PRN 10/29/18 [History] Nicotine Patch [Nicoderm] 14 mg TD DAILY 21 Days #21 patch.td24 11/16/18 [Rx] Lidocaine/Prilocaine [Emla] 1 appl TP AD #1 tube 12/06/18 [Rx] Mirtazapine [Remeron] 7.5 mg PO HS 30 Days #15 tablet 12/06/18 [Rx] Nystatin [Nystatin Suspension] 500,000 units PO QID #120 ml 12/20/18 [Rx] Docusate [Colace] 15 - 30 ml PO DAILY PRN 12/21/18 [History] Potassium Chloride 0 ml PO AD 12/21/18 [History] Sucralfate [Carafate] 1 gm PO QIDAC PRN #60 tablet 12/24/18 [Rx] Ondansetron ODT [Zofran ODT] 4 mg SL Q6HR PRN 01/03/19 [History] Allergy/AdvReac Type Severity Reaction Status Date / Time Bleach (Sodium Hypochlorite) AdvReac Rash Verified 12/21/18 16:30 fexofenadine [From Jessica-D] AdvReac See Verified 12/21/18 16:30 Comments latex AdvReac Redness of Verified 12/21/18 16:30 Skin pseudoephedrine AdvReac See Verified 12/21/18 16:30 [From Jessica-D] Comments sulfamethoxazole AdvReac See Verified 12/21/18 16:30 [From Bactrim] Comments trimethoprim [From Bactrim] AdvReac See Verified 12/21/18 16:30 Comments All Systems PM: A 10-system review of systems was performed and is negative for pertinent findings except as documented above in the HPI. - Constitutional Constitutional: fatigue, malaise, no chills, no fever(s), no night sweats - EENT Eyes: no change in vision, no discharge, no pain, no photophobia Ears: no ear discharge, no ear pain, no tinnitus Nose, mouth and throat: no dysphagia, no nasal discharge, no neck pain, no sore throat - Cardiovascular Cardiovascular ROS IM: no chest pain, no diaphoresis, no dyspnea, no lightheadedness, no palpitations, no syncope - Respiratory Respiratory: no cough, no dyspnea, no wheezing, no excessive phlegm production - Gastrointestinal Gastrointestinal: bloating, no abdominal pain, no diarrhea, no hematemesis, no hematochezia, no melena, no nausea, no vomiting Additional comments: worsening abdominal swelling - Genitourinary Genitourinary: no change in urinary stream, no dysuria, no flank pain, no hematuria - Musculoskeletal Musculoskeletal ROS IM: no numbness, no tingling - Integumentary Integumentary IM: no rash, no unusual bruising - Neurological Neurological ROS: no confusion, no convulsions, no focal weakness, no numbness, no tingling, no tremor(s) - Hematologic/Lymphatic Hematologic/Lymphatic: no easy bruising - Constitutional Vitals: Temp Pulse Resp BP Pulse Ox 98.7 F 120 17 95/65 98 01/03/19 14:31 01/03/19 14:31 01/03/19 14:31 01/03/19 14:01/03/19 14:31 Exam: Worsening abdominal distention - Head Head exam: Present: atraumatic, normocephalic - Eye Eye exam: Present: PERRL, conjuntiva pink, sclera anicteric Pupils: Present: PERRL - Neck Neck exam general surgery: Present: supple, trachea midline. Absent: lymphadenopathy - Respiratory Respiratory exam: Present: CTAB. Absent: accessory muscle use, rales, rhonchi, wheezes - Cardiovascular Cardiovascular exam: Present: RRR, +S1, +S2. Absent: diastolic murmur, gallop, rubs, systolic murmur - GI/Abdominal GI/Abdominal exam: Present: normal bowel sounds, soft, no peritoneal signs. Absent: distended, tenderness - Extremities Exam Extremities exam: Present: warm, radial pulses palpable and symmetrical. Absent: calf tenderness, cyanotic, pedal edema - Neurological Exam Neurological exam: Present: CN II-XII intact, oriented X3, no focal deficits. Absent: pronater drift, facial droop, speech deficit - Skin Skin exam: Present: dry, intact Internal Med - H&P Results - Labs CBC & Chem 7: 01/03/19 16:48 Labs: BMP 01/03/19 16:48 Sodium 135 L Potassium 3.8 Chloride 108 H Carbon Dioxide 22 L BUN 6 Creatinine 0.42 L Glucose 87 Calcium 11.6 H Liver Function 01/03/19 Range/Units 16:48 Total Bilirubin 4.4 H (0.3-1.0) mg/dL AST 67 H (13-39) Units/L ALT 16 (7-52) Units/L Alkaline Phosphatase 365 H (34-104) Units/L Albumin 2.4 L (3.5-5.7) g/dL - Assessment and Plan (1) Decompensated liver disease Current Visit: Yes Status: Acute Assessment and plan: Pt comes in with worsening abdominal distention and elevated ammonia levels in the setting of advanced esophageal cancer with liver metastases Will obtain paracentesis. Cover empiricallly for SBP with ceftriaxone. IV fluids due to lactic acidosis which may be secondary to malignancy vs sepsis On lactulose for hyperammonemia (2) Sepsis Current Visit: Yes Status: Acute Assessment and plan: Pt has weakness and confusion with lactic acidosis , query sepsis from UTI vs SBP Etiology of lactic acidosis could also be secondary to malignancy. Obtain cultures both urine, and blood, and peritoneal fluid analysiss Continue ceftriaxone and IV fluid hydration Qualifiers: Sepsis type: sepsis due to unspecified organism Qualified Code(s): A41.9 - Sepsis, unspecified organism (3) Hypercalcemia Current Visit: Yes Status: Acute Assessment and plan: Hypercalcemia likely secondary to malignancy. calcium was 13 at [facility] Continue IV fluids. Repeat BMP (4) Liver masses Current Visit: Yes Status: Acute Assessment and plan: Oncology follow up. Continue chemotherapy (5) DVT prophylaxis Current Visit: Yes Status: Acute Assessment and plan: heparin sc - Time Spent With Patient Total time spent is greater than 50% in coordination of care (as documented) at patient's floor/unit and/or counseling patient:
[2019-01-03] MEDS: Mirtazapine 15 MG TABLET PO SCH (23:34)
[2019-01-03] MEDS: *HR* LORazepam 0.5 MG TABLET PO PRN (23:34)
[2019-01-03] MEDS: *HR* Heparin 5,000 UNIT/ML VIAL SQ SCH (23:34)
[2019-01-04] MEDS ORDERED: 0.9 % Sodium Chloride 1,000 ML IVC ONE ×2 (00:10→02:55)
[2019-01-04 01:22] LABS: Bilirubin,Urine Moderate (Negative); Blood,Urine Negative (Negative); Clarity,Urine Cloudy (Clear); Glucose,Urine (UA) Normal (Normal); Hyaline Casts,Urine Moderate per lpf (None-Few); Ketones,Urine Negative (Negative); Leukocyte Esterase,Urine Moderate (Negative); Nitrite,Urine Positive (Negative); Protein,Urine Negative (Neg-Trace); RBC,Urine 30-50 per hpf (0-3); Specific Gravity,Urine 1.023 (1.010-1.025); Squamous Epithelial Cell,Urine Many per lpf (None-Few); WBC,Urine 15-30 per hpf (0-3)
[2019-01-04 01:30] LABS: Color,Urine Dark Yellow (Yellow)
[2019-01-04 01:49] LABS: Bacteria,Urine Few per hpf (None-Few); Yeast,Urine Few per hpf (None Seen)
[2019-01-04] MEDS: 0.9 % Sodium Chloride 1,000 ML IVC SCH (02:33)
[2019-01-04 02:58] LABS: BUN/Creatinine Ratio 13 (6-26); Blood Urea Nitrogen 6 mg/dL (6-20); Calcium 11.5 mg/dL (8.6-10.3); Carbon Dioxide 19 mEq/L (23-29); Chloride 111 mEq/L (98-107); Glucose 102 mg/dL (70-105); Magnesium 2.3 mg/dL (1.6-2.6); Osmolality,Calculated 284 (280-300); Phosphorous 1.8 mg/dL (2.7-4.5); Potassium 3.4 mEq/L (3.5-5.1); Sodium 138 mEq/L (136-145); eGFR For African Americans > 60 (> 60); eGFR For Non-African Americans > 60 (> 60)
[2019-01-04 05:13] LABS: Basophils % 0.1 %; Eosinophils % 0.1 %; Hemoglobin 7.4 g/dL (11.5-15.4); Immature Granulocytes % 0.9 % (0-4); Mean Corpuscular Volume 109.4 fL (83.0-100.0); Segmented Neutrophils % 77.5 %
[2019-01-04 05:15] LABS: Hematocrit 24.4 % (35.3-44.9); Immature Platelets 4.8 % (1.1-6.1); Lymphocytes # 1.3 K/mcL (0.6-4.6); Lymphocytes % 13.5 %; Mean Corpuscular HGB Conc 30.3 g/dL (31.6-35.5); Mean Corpuscular Hemoglobin 33.2 pg (28.0-33.3); Mean Platelet Volume 10.5 fL (9.4-12.4); Monocytes # 0.8 K/mcL (0.0-1.3); Monocytes % 7.9 %; Neutrophils # 7.4 K/mcL (1.6-8.9); Red Blood Count 2.23 M/mcL (3.82-4.97); White Blood Count 9.5 K/mcL (4.3-11.1)
[2019-01-04 05:25] LABS: Platelet Count 76 K/mcL (140-400)
[2019-01-04] MEDS ORDERED: Potassium Chloride Elixir 20 MEQ/15 ML UDC PO SCH (05:48)
[2019-01-04 06:16] LABS: Anisocytosis 1+ (Not Present); Platelet Estimate Slight Decrease (Normal)
[2019-01-04] MEDS: *HR* Heparin 5,000 UNIT/ML VIAL SQ SCH (06:24)
[2019-01-04 08:28] LABS: INR 1.9; Prothrombin Time 21.8 Seconds (9.4-12.1)
[2019-01-04] MEDS ORDERED: Potassium Phosphate 44 MEQ in 0.9 % Sodium Chloride 250 ML IVPB ONE (08:37)
--- NOTE | 2019-01-04 08:42 | Internal Med Progress Note ---
Hospitalist Progress Note - Encounter Date of Encounter: 01/04/19 Time of Encounter: 08:30 - Subjective Interval History: No acute events overnight. s/p paracentesis this am - Exam Vitals: Temp Pulse Resp BP Pulse Ox 97.6 F 112 16 107/76 98 01/04/19 06:40 01/04/19 06:40 01/04/19 06:40 01/04/19 06:40 01/04/19 06:40 Exam: General appearance: Present: A&O X 3, no acute distress Head exam: Present: normocephalic Respiratory exam: Present: CTAB. Absent: accessory muscle use, rales, rhonchi, wheezes Cardiovascular exam: Present: RRR, +S1, +S2. Absent: diastolic murmur, gallop, rubs, systolic murmur GI/Abdominal exam: Worsening abdominal distention Extremities exam: positive edema bilaterally Neurological exam: Present: alert, oriented X3, no focal deficits. Absent: altered - Assessment and Plan (1) Decompensated liver disease Current Visit: Yes Status: Acute Assessment and Plan: Pt comes in with worsening abdominal distention and elevated ammonia levels in the setting of advanced esophageal cancer with liver metastases Will obtain paracentesis. Cover empiricallly for SBP with ceftriaxone. IV fluids due to lactic acidosis which may be secondary to malignancy vs sepsis On lactulose for hyperammonemia Improved this am s/p removal of 2L ascitic fluid. Peritoneal fluid not suggestive of SBP. Will give albumin for hypotension Goals of care. Palliative care consulted (2) Sepsis Current Visit: Yes Status: Acute Assessment and Plan: Pt has weakness and confusion with lactic acidosis , query sepsis from UTI vs SBP Etiology of lactic acidosis could also be secondary to malignancy. Obtain cultures both urine, and blood, and peritoneal fluid analysiss Continue ceftriaxone for possible UTI. peritoneal fluid analysis not suggestive of SBP (3) Hypercalcemia Current Visit: Yes Status: Acute Assessment and Plan: Hypercalcemia likely secondary to malignancy. calcium was 13 at [facility] Improved with hydration to 11.6 (4) Liver masses Current Visit: Yes Status: Acute Assessment and Plan: Oncology follow up. Continue chemotherapy (5) DVT prophylaxis Current Visit: Yes Status: Acute Assessment and Plan: heparin sc - Time Spent with Patient Total time spent is greater than 50% in coordination of care (as documented) at patient's floor/unit and/or counseling patient: Internal Medicine: Result - Labs CBC & Chem 7: 01/04/19 04:56 01/04/19 02:20 Labs: Short CBC 01/04/19 Range/Units 04:56 WBC 9.5 (4.3-11.1) K/mcL Hgb 7.4 L (11.5-15.4) g/dL Hct 24.4 L (35.3-44.9) % Plt Count 76 L (140-400) K/mcL Neutrophils # 7.4 (1.6-8.9) K/mcL BMP 01/03/19 01/04/19 16:48 02:20 Sodium 135 L 138 Potassium 3.8 3.4 L Chloride 108 H 111 H Carbon Dioxide 22 L 19 L BUN 6 6 Creatinine 0.42 L 0.47 L Glucose 87 102 Calcium 11.6 H 11.5 H Liver Function 01/03/19 Range/Units 16:48 Total Bilirubin 4.4 H (0.3-1.0) mg/dL AST 67 H (13-39) Units/L ALT 16 (7-52) Units/L Alkaline Phosphatase 365 H (34-104) Units/L Albumin 2.4 L (3.5-5.7) g/dL Urine 01/04/19 Range/Units 01:02 Urine Color Dark Yellow (Yellow) Urine Clarity Cloudy A (Clear) Urine pH 5.0 (5.0-8.0) pH Units Ur Specific [place] 1.023 (1.010-1.025) Urine Protein Negative (Neg-Trace) mg/dL Urine Glucose (UA) Normal (Normal) mg/dL - ABG Interpretation ABG results: PT/INR, D-dimer PT 21.8 Seconds (9.4-12.1) H 01/04/19 08:01 - Impressions Impressions Chest X-Ray 01/03/19 16:11 IMPRESSION: Mild hypoinflation. No acute cardiopulmonary abnormality. D/ / Adam Dotson MD / Adam Dotson MD Interpreting Provider: Adam Dotson MD Consult Discharge Plan - Plan Referrals: Terra De La Garza, BLANCO [Primary Care Provider] - (2) Sepsis Qualifiers: Qualified Code(s): A41.9 - Sepsis, unspecified organism
--- NOTE | 2019-01-04 09:08 | Oncology Inp Consult Note ---
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 PET/CT imaging with hypermetabolic uptake in the distal esophagus Received cycle #1 of FOLFOX 11/21/2018 Received Oxaliplatin 12/20/18 Treatment intent has been palliative in the past At this time, hospice may be most beneficial to patient, however she has been resistant in the past (2) Weakness Status: Acute Assessment and plan: Weakness, secondary to advanced metastatic disease. The patient does have HH, however likely will continue to have deconditioning due to poor PO intake and poor nutritional status Physical therapy and occupational may be beneficial to the patient if she can tolerate Patient also does have anemia which may be symptomatic, 7.4g/dl. We will transfuse 1u PRBC Nutrition consult recommended for nutritional deficiencies (3) Ascites Status: Chronic Assessment and plan: Ascites due to metastatic disease to the liver Patient underwent paracentesis this morning - Data of Consult Patient: known to practice within the last 3 years Consult date: 01/04/19 Requesting Physician: Patrick Swann MD Primary Care Provider: Terra De La Garza CNP - Consult Narrative Reason for consult: Esophageal cancer History of present illness: Ms. Montgomery is a 58 yo woman who presented to [facility] on 01/03/19 for profound weakness that prevented her from standing and getting into her friend's car. Hematology/Oncology was consulted on 01/04/19 as she has a documented history of esophageal carcinoma with extensive metastatic disease burden and is currently treated at the [facility]. In short, Ms. Montgomery is a 58yo woman with history of hypertension and metastatic esophageal poorly differentiated carcinoma who presented to [facility] due to severe weakness which she experienced yesterday while trying to get into her friend's car. She said that she has been having issues with weakness for quite some time, however she had been starting to improve prior to yesterday. She said when she tried again and her friend's car yesterday she was unable to stand on her own and she felt that something needed to be done. She called her oncologist, Dr. Sharp, who recommended that she either call hospice for call rescue squad to bring her to the hospital. She denies any fever, chills, sweats. She also has not had any significant nausea, vomiting. She does admit to poor by mouth intake, and poor appetite over the past several weeks. She does have significant abdominal pain and discomfort which is associated with increased abdominal distention secondary to liver disease. The patient has no other acute complaints at this time. Oncology history: Metastatic esophageal poorly differentiated carcinoma. Patient presented with hypercalcemia and diffuse multifocal liver metastatic disease. PET/CT imaging 11/15/2018 with focal metabolic activity of the esophagogastric junction and addition to known metastatic disease involving the left supraclavicular lymph node, upper abdominal, retroperitoneal lymph node basins as well as extensive disease involving the liver. Primary oncologist: Dr. Sharp Current therapy: 1. FOLFOX initiated 11/21/2018 Received oxaliplatin 12/20/18 5FU bolus/home infusion held and patient sent to ED due to hypokalemia (K 2.3) Treatment intent: Palliative Past Med Surg Social Fam HX - Past Medical History Medical history: cancer, GERD, hypertension Additional medical history: seasonal allergies (pre-diabetic- metabolic syndrome). esophogeal cancer, hemorrhoids. liver cancer Psychiatric history: anxiety, panic disorder - Past Surgical History Surgical History: cholecystectomy Additional surgical history: paracentesis 2 weeks ago, A-port insertion - Social History Smoking Status: Current every day smoker Smokeless Tobacco Status: No Alcohol use: none Drug use: none - Family History Mother Adopted: No Living Status: Hx Family Cardiac Disorders: Yes Medications and Allergies Brompheniramine/Pseudoephed/Dm [Bromfed Dm Cough Syrup] 5 ml PO Q48H 10/28/18 [History] Montelukast [Singulair] 10 mg PO HS 10/28/18 [History] Omeprazole [PriLOSEC] 40 mg PO DAILY 10/28/18 [History] LORazepam [Ativan] 0.25 mg PO TID PRN 10/29/18 [History] Nicotine Patch [Nicoderm] 14 mg TD DAILY 21 Days #21 patch.td24 11/16/18 [Rx] Lidocaine/Prilocaine [Emla] 1 appl TP AD #1 tube 12/06/18 [Rx] Mirtazapine [Remeron] 7.5 mg PO HS 30 Days #15 tablet 12/06/18 [Rx] Nystatin [Nystatin Suspension] 500,000 units PO QID #120 ml 12/20/18 [Rx] Docusate [Colace] 15 - 30 ml PO DAILY PRN 12/21/18 [History] Potassium Chloride 15 ml PO DAILY 12/21/18 [History] Sucralfate [Carafate] 1 gm PO QIDAC PRN #60 tablet 12/24/18 [Rx] Ondansetron ODT [Zofran ODT] 4 mg SL Q6HR PRN 01/03/19 [History] Allergy/AdvReac Type Severity Reaction Status Date / Time Bleach (Sodium Hypochlorite) AdvReac Rash Verified 01/04/19 13:58 fexofenadine [From Jessica-D] AdvReac See Verified 01/04/19 13:58 Comments latex AdvReac Redness of Verified 01/04/19 13:58 Skin pseudoephedrine AdvReac See Verified 01/04/19 13:58 [From Jessica-D] Comments sulfamethoxazole AdvReac See Verified 01/04/19 13:58 [From Bactrim] Comments trimethoprim [From Bactrim] AdvReac See Verified 01/04/19 13:58 Comments Review of systems: Constitutional: Denies fevers, chills, weight loss. Admits to generalized fatigue and weakness Head/Neck: Denies BOJORQUEZ, neck stiffness EENT: Denies vision changes/blurriness, rhinorrhea, congestion, sore throat CVS: Denies chest pain, palpitations, DOMINIQUE, orthopnea, edema, PND Pulm: Denies SOB, cough, sputum, hemoptysis, wheezing GI: Admits to abdominal pain and distension which is chronic but was worsening. She is s/p paracentesis : Denies dysuria, increased frequency, urgency, hematuria Heme: Denies ease of bleeding or bruising MSK: Admits to generalized aches and pains, weakness Skin: Denies rashes, ulcers, color changes Neuro: Denies BOJORQUEZ, paresthesias, focal deficits, ataxia Oncology - Exam - Constitutional Exam: Gen: Vitals noted. No acute distress. Appears frail Eyes: anicteric sclerae, moist conjunctivae HENT: Atraumatic; oropharynx clear with moist mucous membranes Neck: Trachea midline; supple Cardiac: RRR, no murmur, +S1/S2. Chest: A-port in place Pulmonary: CTA bilaterally, no wheezes, rales or rhonchi, equal chest expansion Abdomen: Quite distended, soft. S/p paracentesis. Tender to palpation generally MSK: ROM intact, no joint swelling noted Extremities: no BLE edema, nontender calf, no cyanosis or clubbing Skin: Normal temperature, turgor and texture; no rash, ulcers or subcutaneous nodules Neuro: moves all extremities, no focal deficits. Psych: Depressed mood. A&Ox3 Consult Discharge Plan - Plan Referrals: Terra De La Garza CNP [Primary Care Provider] - Inpatient Charges Provider: Dr. Kian Chatterjee <Ronaldo Chatterjee - Last Filed: 01/04/19 15:11> Date of Encounter: 01/04/19 - Data of Consult Requesting Physician: Patrick Swann MD Primary Care Provider: Terra De La Garza CNP - Attending Attestation PAtient seen examined with resident physician. She has abd discomfort-reports pain medicine not been given. s/p paracentesis, reportedly neg for malignancy. Abd distension, pain declining PS from progressive disease. Correct electrolyte abnormalities, PRBC for anemia and consider palliative consult. Discussed above with patient I examined this patient and my medical decision-making was reviewed with Tom Orellana. I agree with the documented findings, disposition and treatment plan as described except to the extent set forth below. Inpatient Charges Provider: Dr. Kian Chatterjee Consult - Inpatient: [id number]
[2019-01-04] MEDS ORDERED: Sucralfate 1 GM TABLET PO PRN (09:15)
--- NOTE | 2019-01-04 09:29 | Procedure Note ---
Date of procedure: 01/04/19 Pre-op diagnosis: ascites Post-op diagnosis: same Procedure: Paracentesis Procedure Note INDICATION: Ascites PROCEDURE INSIDE BARREL LATHE OPERATOR: Toi Grissom ATTENDING PHYSICIAN: Dr. Patsy Perez Ultrasound used to obed location: yes CONSENT: written consent obtained from patient PROCEDURE SUMMARY: The area was cleansed and draped in usual sterile fashion using chlorhexidine scrub. The right abdomen was prepped and draped in a sterile fashion using. 1% lidocaine was used to numb the skin, soft tissue and peritoneum. The paracentesis catheter was inserted and advanced with negative pressure until straw colored fluid was aspirated. Approximately 60 mL of ascitic fluid was collected and sent for laboratory analysis. The catheter was then connected to the vaccutainer and 2.1 liters of additional ascitic fluid were drained. The catheter was removed and no leaking was noted. A bandaid was placed over the puncture wound. The patient tolerated the procedure well without any immediate complications. Estimated blood loss was 0 mL. Anesthesia: local Surgeon: Toi Grissom Was there an liaison inspection laboratory assistant present: No Estimated blood loss (cc): 0 Specimen: ascitic fluid Condition: stable Disposition: floor
[2019-01-04] MEDS: Lactulose Oral Soln 20 GM/30 ML UDC PO SCH ×3 (10:44→22:05)
[2019-01-04] MEDS: cefTRIAXone 1,000 MG in Water for inj. (sterile) 10 ML IVP SCH (10:44)
[2019-01-04 11:01] LABS: RBC,Peritoneal Fluid < 0.002 M/mcL
[2019-01-04 11:09] LABS: Appearance of Peritoneal Fl CLEAR (Clear)
[2019-01-04 11:17] LABS: Amylase,Peritoneal Fluid 10 Units/L (No Ref Range); Glucose,Peritoneal Fluid 123 mg/dL (No Ref Range); LDH,Peritoneal Fluid 145 Units/L (No Ref Range)
[2019-01-04] MEDS ORDERED: Albumin 25% 25gram/100mL 25 GM/100 ML IV.SOLN IVPB ONE (12:09)
--- NOTE | 2019-01-04 14:08 | Palliative - Consult Note ---
Date of Encounter: 01/04/19 Time of Encounter: 13:15 - Assessment and Plan (1) Ascites Current Visit: Yes Status: Chronic Assessment and plan: Patient diagnosed with metastatic esophageal cancer with mets to liver. Patient now with malignant ascites. S/P paracentesis today with removal of 2.1L. band aid intact to abdomen. Patient with abdominal distention and tenderness. Qualifiers: Ascites type: malignant Qualified Code(s): R18.0 - Malignant ascites (2) Cancer associated pain Current Visit: No Status: Acute Assessment and plan: Patient with esophageal cancer with mets. Abdominal ascites. Patient desires to not take mood altering pain medication but agreed to have PRN meds if needed. Currently has Toradol PRN. (3) Severe protein-calorie malnutrition Current Visit: Yes Status: Acute Assessment and plan: Severe protein-calorie malnutrition r/t chronic condition aeb weight loss >5% in 1 month and energy intake <75% of estimated energy needs for >1 month. Dietary following. (4) Goals of care, counseling/discussion Current Visit: Yes Status: Acute Assessment and plan: Patient emotional and desires for family to be at bedside for any discussions. Called patients martha Villalobos #[phone]. Discussed patients prognosis. Patient currently living alone and has 10 y/o grandson who helps with light housework. Patient lost her 3 years ago to stomach cancer under the care of hospice. Patient not open at this time to discuss hospice care. Set-up meeting for 1pm tomorrow to discuss code status and DC planning. This will give patient sometime to settle down and she agrees to have meeting at this time. Explained that patient prognosis is poor and will likely not be able to transition back home. Patient meets hospice criteria in the presence of: - PPS < 60% - Wt. loss > 5% - S/S of advanced dz - Ascites requiring paracentesis (5) Palliative care encounter Current Visit: Yes Status: Acute (6) Metastasis from esophageal cancer Current Visit: Yes Status: Acute Assessment and plan: Oncology following Palliative-CN HPI - Data of Consult Patient: new to practice Consult date: 01/04/19 Requesting Physician: Mercy Guevara Primary Care Provider: Terra De La Garza CNP - Consult Narrative Palliative Care/Comfort Measures: Palliative care Reason for consult: Goals of Care discussion History of present illness: Ms. Montgomery is a 58 year old female admitted for abdominal distention and confusion from elevated ammonia level. PMH includes recently diagnosed with Metastatic esophageal poorly differentiated carcinoma in October 2018. Metastatic disease to Liver and retroperitoneum. Patient currently patient of [facility]. Received cycle #1 of FOLFOX 11/21/2018. Received Oxaliplatin 12/20/18. Treatment intent has been palliative in nature. Patient s/p paracentesis with removal of 2.1 L today. Upon arrival to room, patient is emotional and tearful. Bedside discussion conducted. This palliative care consult is for goals of care discussion. CC: Patrick Swann MD - Time Spent with Patient Time: Total time spent is greater than 50% in coordination of care (as documented) at patient's floor/unit and/or counseling patient: Time with patient: 45 minutes Past Med Surg Social Fam HX - Past Medical History Source: old records reviewed, obtained from family, nursing notes reviewed Medical history: cancer, GERD, hypertension, liver disease, malignancy Additional medical history: seasonal allergies (pre-diabetic- metabolic syndrome). esophogeal cancer, hemorrhoids. liver cancer Psychiatric history: anxiety, panic disorder - Past Surgical History Surgical History: cholecystectomy Additional surgical history: paracentesis 2 weeks ago, A-port insertion - Social History Smoking Status: Current every day smoker Smokeless Tobacco Status: No Alcohol use: none Drug use: none Occupational status: retired Current living situation: Home - Independent Activity Level: Mostly sedentary Recent Out of Country Travel Within the Last 8 Weeks: No Exposure or Possible Exposure to Illness During Travel: No - Family History Mother Adopted: No Living Status: Hx Family Cardiac Disorders: Yes Medications and Allergies Brompheniramine/Pseudoephed/Dm [Bromfed Dm Cough Syrup] 5 ml PO Q48H 10/28/18 [History] Montelukast [Singulair] 10 mg PO HS 10/28/18 [History] Omeprazole [PriLOSEC] 40 mg PO DAILY 10/28/18 [History] LORazepam [Ativan] 0.25 mg PO TID PRN 10/29/18 [History] Nicotine Patch [Nicoderm] 14 mg TD DAILY 21 Days #21 patch.td24 11/16/18 [Rx] Lidocaine/Prilocaine [Emla] 1 appl TP AD #1 tube 12/06/18 [Rx] Mirtazapine [Remeron] 7.5 mg PO HS 30 Days #15 tablet 12/06/18 [Rx] Nystatin [Nystatin Suspension] 500,000 units PO QID #120 ml 12/20/18 [Rx] Docusate [Colace] 15 - 30 ml PO DAILY PRN 12/21/18 [History] Potassium Chloride 15 ml PO DAILY 12/21/18 [History] Sucralfate [Carafate] 1 gm PO QIDAC PRN #60 tablet 12/24/18 [Rx] Ondansetron ODT [Zofran ODT] 4 mg SL Q6HR PRN 01/03/19 [History] Allergy/AdvReac Type Severity Reaction Status Date / Time Bleach (Sodium Hypochlorite) AdvReac Rash Verified 01/04/19 13:58 fexofenadine [From Jessica-D] AdvReac See Verified 01/04/19 13:58 Comments latex AdvReac Redness of Verified 01/04/19 13:58 Skin pseudoephedrine AdvReac See Verified 01/04/19 13:58 [From Jessica-D] Comments sulfamethoxazole AdvReac See Verified 01/04/19 13:58 [From Bactrim] Comments trimethoprim [From Bactrim] AdvReac See Verified 01/04/19 13:58 Comments Review of systems: Patient reports general weakness over past couple weeks, decreased appetite and abdominal distention. - Constitutional Constitutional ROS PAL: decreased appetite, fatigue - Respiratory Respiratory: dyspnea on exertion - Gastrointestinal Gastrointestinal: abdominal pain, bloating, nausea - Genitourinary Palliative ROS female: urinary urgency - Musculoskeletal Musculoskeletal ROS IM: muscle weakness - Integumentary ROS Integumentary: jaundice - Neurological Neurological ROS: weakness - Psychiatric Psychiatric general PM: irritability Palliative Care-Exam - Constitutional Vitals: Temp Pulse Resp BP Pulse Ox 97.8 F 120 16 105/73 100 01/04/19 11:20 01/04/19 11:20 01/04/19 11:20 01/04/19 11:20 01/04/19 11:20 General appearance: Present: mild distress Exam: Patient emotional and tearful - Head Head Exam: Present: atraumatic, normal inspection - Eye Eye exam: Present: scleral icterus Pupils: Present: PERRL - ENT ENT exam: Present: mucous membranes moist - Expanded ENT Exam Teeth exam: Present: normal external inspection - Respiratory Respiratory exam: Present: decreased breath sounds - Expanded Respiratory Exam Location: decreased breath sounds: Left, Right, Lower - Cardiovascular Cardiovascular exam: Present: RRR, +S1, +S2 - Expanded Cardiovascular Exam Peripheral pulses: 1+: Femoral (L) PM, Femoral (R) PM, Posterior Tibialis (L), Posterior Tibialis (R), 2+: Carotid (L) PM, Carotid (R) PM, Radial (L), Radial (R) - GI/Abdominal Exam GI/Abdominal exam: Present: distended, tenderness additional comments: s/p paracentesis - Rectal Rectal exam: Present: hemorrhoids - External exam: Present: normal external exam - Extremities Exam Extremities exam: Present: tenderness - Expanded Lower Extremities Exam Hip exam: Present: full ROM Upper Leg exam: Present: full ROM Lower Leg exam: Present: full ROM - Back Exam Back exam: Present: tenderness - Neurological Exam Neurological exam: Present: alert - Expanded Neurological Exam Coma Scale Eye Opening: Spontaneous Coma Scale Motor Response: Obeys Commands Coma Scale Verbal Response: Confused Coma Scale Total: 14 - Psychiatric Psychiatric exam: Present: anxious - Skin Skin exam: Present: warm Additional comments: jaundice Internal Medicine - CN: Reslt - Labs CBC & Chem 7: 01/04/19 04:56 01/04/19 02:20 Labs: Short CBC 01/04/19 Range/Units 04:56 WBC 9.5 (4.3-11.1) K/mcL Hgb 7.4 L (11.5-15.4) g/dL Hct 24.4 L (35.3-44.9) % Plt Count 76 L (140-400) K/mcL Neutrophils # 7.4 (1.6-8.9) K/mcL BMP 01/03/19 01/04/19 16:48 02:20 Sodium 135 L 138 Potassium 3.8 3.4 L Chloride 108 H 111 H Carbon Dioxide 22 L 19 L BUN 6 6 Creatinine 0.42 L 0.47 L Glucose 87 102 Calcium 11.6 H 11.5 H Liver Function 01/03/19 Range/Units 16:48 Total Bilirubin 4.4 H (0.3-1.0) mg/dL AST 67 H (13-39) Units/L ALT 16 (7-52) Units/L Alkaline Phosphatase 365 H (34-104) Units/L Albumin 2.4 L (3.5-5.7) g/dL Urine 01/04/19 Range/Units 01:02 Urine Color Dark Yellow (Yellow) Urine Clarity Cloudy A (Clear) Urine pH 5.0 (5.0-8.0) pH Units Ur Specific [place] 1.023 (1.010-1.025) Urine Protein Negative (Neg-Trace) mg/dL Urine Glucose (UA) Normal (Normal) mg/dL - ABG Interpretation ABG results: PT/INR, D-dimer PT 21.8 Seconds (9.4-12.1) H 01/04/19 08:01 - Impressions Impressions Chest X-Ray 01/03/19 16:11 IMPRESSION: Mild hypoinflation. No acute cardiopulmonary abnormality. D/ / Adam Dotson MD / Adam Dotson MD Interpreting Provider: Adam Dotson MD Paracentesis Ultrasound 01/03/19 16:39 IMPRESSION: Successful ultrasound guided paracentesis. D/ / Patsy Perez MD / Patsy Perez MD Interpreting Provider: Patsy Perez MD Consult Discharge Plan - Plan Referrals: Terra De La Garza CNP [Primary Care Provider] - Palliative Quality Palliative Quality: Screen for Code Status: Yes, Screen for Goals of Care: Yes, Screen for Pain: Yes, Screen for Nausea/Vomitting: Yes Code Status: 01/03/19 15:40 Resuscitation Status: Active [RES] Routine Comment: Resuscitation Status: Full Code Palliative Scale - Palliative Performance Scale How ambulatory is this patient?: Mainly in bed What is patient's level of activity and evidence of disease?: Unable hobby/housework, Significant disease How much self-care assistance does patient require?: Considerable assistance required How much oral intake does the patient have?: Normal or reduced What is this patient's level of consciousness?: Full or confusion Palliative Performance Score: 60 %
[2019-01-04] MEDS: *HR* LORazepam 0.5 MG TABLET PO PRN (14:58)
[2019-01-04] MEDS: Ketorolac 15 MG/ML VIAL IVP PRN (14:58)
[2019-01-04] MEDS ORDERED: Preparation H Ointment 30 GM TUBE RC PRN (16:05)
[2019-01-04] MEDS ORDERED: 0.9 % Sodium Chloride 250 ML ONE (22:02)
[2019-01-04] MEDS: Mirtazapine 15 MG TABLET PO SCH (22:05)
[2019-01-05] MEDS: *HR* LORazepam 0.5 MG TABLET PO PRN ×3 (04:36→20:28)
[2019-01-05 05:23] LABS: Basophils % 0.3 %; Eosinophils % 0.1 %; Hematocrit 31.3 % (35.3-44.9); Mean Corpuscular Volume 105.4 fL (83.0-100.0); Red Blood Count 2.97 M/mcL (3.82-4.97); Red Cell Distribution Width 24.2 % (11.5-14.5)
[2019-01-05 05:25] LABS: Hemoglobin 9.7 g/dL (11.5-15.4); Immature Granulocytes % 1.3 % (0-4); Immature Platelets 4.7 % (1.1-6.1); Lymphocytes # 1.1 K/mcL (0.6-4.6); Lymphocytes % 12.1 %; Mean Corpuscular Hemoglobin 32.7 pg (28.0-33.3); Mean Platelet Volume 11.4 fL (9.4-12.4); Monocytes # 0.7 K/mcL (0.0-1.3); Monocytes % 7.4 %; Segmented Neutrophils % 78.8 %; White Blood Count 9.1 K/mcL (4.3-11.1)
[2019-01-05 05:27] LABS: Neutrophils # 7.2 K/mcL (1.6-8.9); Platelet Count 65 K/mcL (140-400)
[2019-01-05 05:43] LABS: Anisocytosis 2+ (Not Present)
[2019-01-05 05:45] LABS: BUN/Creatinine Ratio 11 (6-26); Blood Urea Nitrogen 4 mg/dL (6-20); Carbon Dioxide 21 mEq/L (23-29); Chloride 109 mEq/L (98-107); Glucose 93 mg/dL (70-105); Magnesium 2.3 mg/dL (1.6-2.6); Osmolality,Calculated 281 (280-300); Phosphorous 1.9 mg/dL (2.7-4.5); Potassium 4.2 mEq/L (3.5-5.1); Sodium 137 mEq/L (136-145); eGFR For African Americans > 60 (> 60); eGFR For Non-African Americans > 60 (> 60)
[2019-01-05] MEDS: Ketorolac 15 MG/ML VIAL IVP PRN ×2 (06:27→14:49)
--- NOTE | 2019-01-05 08:35 | Internal Med Progress Note ---
Hospitalist Progress Note - Encounter Date of Encounter: 01/05/19 Time of Encounter: 08:00 - Subjective Interval History: No acute events overnight - Exam Vitals: Temp Pulse Resp BP Pulse Ox 97.9 F 114 19 116/76 99 01/05/19 06:51 01/05/19 06:51 01/05/19 06:51 01/05/19 06:51 01/05/19 06:51 Exam: General appearance: Present: A&O X 3, no acute distress Head exam: Present: normocephalic Respiratory exam: Present: CTAB. Absent: accessory muscle use, rales, rhonchi, wheezes Cardiovascular exam: Present: RRR, +S1, +S2. Absent: diastolic murmur, gallop, rubs, systolic murmur GI/Abdominal exam: Worsening abdominal distention Extremities exam: positive edema bilaterally Neurological exam: Present: alert, oriented X3, no focal deficits. Absent: altered - Assessment and Plan (1) Decompensated liver disease Current Visit: Yes Status: Acute Assessment and Plan: Pt comes in with worsening abdominal distention and elevated ammonia levels in the setting of advanced esophageal cancer with liver metastases Will obtain paracentesis. Cover empiricallly for SBP with ceftriaxone. IV fluids due to lactic acidosis which may be secondary to malignancy vs sepsis On lactulose for hyperammonemia Improved this am s/p removal of 2L ascitic fluid. Peritoneal fluid not suggestive of SBP. Will give albumin for hypotension Goals of care. Palliative care consulted regarding possible hospice vs SNF placement as patient lives alone (2) Sepsis Current Visit: Yes Status: Acute Assessment and Plan: Pt has weakness and confusion with lactic acidosis , query sepsis from UTI vs SBP Etiology of lactic acidosis could also be secondary to malignancy. Obtain cultures both urine, and blood, and peritoneal fluid analysis Continue ceftriaxone for possible UTI. peritoneal fluid analysis not suggestive of SBP Will d/c ceftriaxone as urine cultures showed no growth (3) Hypercalcemia Current Visit: Yes Status: Acute Assessment and Plan: Hypercalcemia likely secondary to malignancy. calcium was 13 at [facility] Calcium trended up to 12 today. Will give one dose of zoledronic acid and hydrate (4) Liver masses Current Visit: Yes Status: Acute Assessment and Plan: Oncology follow up. Continue chemotherapy (5) DVT prophylaxis Current Visit: Yes Status: Acute Assessment and Plan: heparin sc - Time Spent with Patient Total time spent is greater than 50% in coordination of care (as documented) at patient's floor/unit and/or counseling patient: Internal Medicine: Result - Labs CBC & Chem 7: 01/05/19 05:09 01/05/19 05:09 Labs: Short CBC 01/05/19 Range/Units 05:09 WBC 9.1 (4.3-11.1) K/mcL Hgb 9.7 L D (11.5-15.4) g/dL Hct 31.3 L (35.3-44.9) % Plt Count 65 L (140-400) K/mcL Neutrophils # 7.2 (1.6-8.9) K/mcL BMP 01/05/19 05:09 Sodium 137 Potassium 4.2 Chloride 109 H Carbon Dioxide 21 L BUN 4 L Creatinine 0.38 L Glucose 93 Calcium 12.0 H - ABG Interpretation ABG results: PT/INR, D-dimer PT 21.8 Seconds (9.4-12.1) H 01/04/19 08:01 - Impressions Impressions Paracentesis Ultrasound 01/03/19 16:39 IMPRESSION: Successful ultrasound guided paracentesis. D/ / Patsy Perez MD / Patsy Perez MD Interpreting Provider: Patsy Perez MD Consult Discharge Plan - Plan Referrals: Terra De La Garza, CANCELING AND CUTTING CONTROL CLERK [Primary Care Provider] - (2) Sepsis Qualifiers: Qualified Code(s): A41.9 - Sepsis, unspecified organism
[2019-01-05] MEDS ORDERED: *HR* HYDROcodone/Acet 5/325 mg TABLET PO PRN (09:04)
[2019-01-05] MEDS: cefTRIAXone 1,000 MG in Water for inj. (sterile) 10 ML IVP SCH (09:29)
[2019-01-05] MEDS: Lactulose Oral Soln 20 GM/30 ML UDC PO SCH ×3 (09:29→20:27)
[2019-01-05] MEDS ORDERED: Zoledronic Acid (Zometa) 4 MG in 0.9 % Sodium Chloride 100 ML IV ONE (11:22)
[2019-01-05] MEDS: 0.9 % Sodium Chloride 1,000 ML IVC SCH (12:30)
--- NOTE | 2019-01-05 14:08 | Palliative Progress Note ---
Date of Encounter: 01/05/19 Time of Encounter: 13:00 - Assessment and plan (1) Goals of care, counseling/discussion Current Visit: Yes Status: Acute Assessment and plan: Conducted bedside meeting with patient, daughter Griselda, and Fariba Herman CNP for Oncology. Discussed patients current condition with malignant ascites and cullen de la garza met. Discussed patents inability to receive any further per chemotherapy per Oncology. Explained that this is not given up but rather a transition in care to one of comfort. Patient closed eyes and remained silent through out most of the discussion. Daughter Griselda moved to patients bedside and offered support. Discussed next steps in care given that chemotherapy is no longer an option. Dee mcclure lives alone and is not strong enough to return home alone. Discussed comfort care and how that transition will benefit patient with managing symptoms and enhancing quality of life. Patient has past experience with hospice and has been reluctant to accept it. Explained disease progression and liver failure and the services that hospice could provide. Patient and daughter given time to discuss possible transition home to live with daughter. Stepped out of room and provided time for them to discuss. F/U discussion with Griselda in conference room. Griselda feels that she might be able to take patient home to live with her but will need to discuss further with other family and friends so they can help in her care. F/U on home DC plan to occur at 3pm to provide Griselda some time to make calls. Oncology to have f/u discussion with patient this evening. [facility] to meet with patient and provide additional education on comfort care transition. Patient Full Code for now while family determines final plan. (2) Ascites Current Visit: Yes Status: Chronic Assessment and plan: Patient s/p paracentesis. Malignant ascites. Qualifiers: Ascites type: malignant Qualified Code(s): R18.0 - Malignant ascites (3) Cancer associated pain Current Visit: No Status: Acute Assessment and plan: Patient reluctant to take pain medication. States "she doesn't want to be snowed". Educated on PRN Toradol. Patient states med was helpful at home when taken. (4) Severe protein-calorie malnutrition Current Visit: Yes Status: Acute Assessment and plan: Dietary following (5) Palliative care encounter Current Visit: Yes Status: Acute (6) Metastasis from esophageal cancer Current Visit: Yes Status: Acute - Time Spent With Patient Total time spent is greater than 50% in coordination of care (as documented) at patient's floor/unit and/or counseling patient: Greater than 35 minutes - Subjective Interval history: Patient alert, glasses on. States feeling better. Bedside discussion with patient and daughter Griselda. - Constitutional Vitals: Abnormal lab results RBC 2.97 M/mcL (3.82-4.97) L 01/05/19 05:09 Hgb 9.7 g/dL (11.5-15.4) L D 01/05/19 05:09 Hct 31.3 % (35.3-44.9) L 01/05/19 05:09 MCV 105.4 fL (83.0-100.0) H 01/05/19 05:09 MCHC 31.0 g/dL (31.6-35.5) L 01/05/19 05:09 RDW 24.2 % (11.5-14.5) H 01/05/19 05:09 Plt Count 65 K/mcL (140-400) L 01/05/19 05:09 Platelet Estimate Slight Decrease (Normal) L 01/04/19 04:56 Anisocytosis 2+ (Not Present) A 01/05/19 05:09 PT 21.8 Seconds (9.4-12.1) H 01/04/19 08:01 Sodium 135 mEq/L (136-145) L 01/03/19 16:48 Potassium 3.4 mEq/L (3.5-5.1) L 01/04/19 02:20 Chloride 109 mEq/L (98-107) H 01/05/19 05:09 Carbon Dioxide 21 mEq/L (23-29) L 01/05/19 05:09 BUN 4 mg/dL (6-20) L 01/05/19 05:09 Creatinine 0.38 mg/dL (0.60-1.20) L 01/05/19 05:09 Calculated Osmolality 277 (280-300) L 01/03/19 16:48 Lactic Acid 4.2 mmol/L (0.5-2.2) H* 01/04/19 04:56 Calcium 12.0 mg/dL (8.6-10.3) H 01/05/19 05:09 Phosphorus 1.9 mg/dL (2.7-4.5) L 01/05/19 05:09 Total Bilirubin 4.4 mg/dL (0.3-1.0) H 01/03/19 16:48 AST 67 Units/L (13-39) H 01/03/19 16:48 Alkaline Phosphatase 365 Units/L (34-104) H 01/03/19 16:48 Serum Total Protein 5.1 g/dL (6.4-8.9) L 01/03/19 16:48 Albumin 2.4 g/dL (3.5-5.7) L 01/03/19 16:48 Albumin/Globulin Ratio 0.9 (1.1-2.2) L 01/03/19 16:48 Urine Clarity Cloudy (Clear) A 01/04/19 01:02 Urine Nitrite Positive (Negative) A 01/04/19 01:02 Urine Bilirubin Moderate (Negative) H 01/04/19 01:02 Urine Urobilinogen 2.0 mg/dL (Normal) H 01/04/19 01:02 Ur Leukocyte Esterase Moderate (Negative) H 01/04/19 01:02 Urine Microscopic RBC 30-50 per hpf (0-3) H 01/04/19 01:02 Urine Microscopic WBC 15-30 per hpf (0-3) H 01/04/19 01:02 Ur Squamous Epith Cells Many per lpf (None-Few) H 01/04/19 01:02 Hyaline Casts Moderate per lpf (None-Few) H 01/04/19 01:02 Urine Yeast Few per hpf (None Seen) H 01/04/19 01:02 Ur Culture Indicated? YES (NO) A 01/04/19 01:02 Crossmatch See Detail 01/04/19 16:35 - Head Head exam: Present: atraumatic, normal inspection - Eye Eye exam: Present: PERRL - ENT ENT exam: Present: mucous membranes dry - Neck Neck exam: Present: full ROM - Respiratory Respiratory exam: Present: decreased breath sounds - Cardiovascular Cardiovascular exam: Present: +S1, +S2, tachycardia - Expanded Cardiovascular Exam Peripheral pulses: 1+: Femoral (L) PM, Femoral (R) PM, Posterior Tibialis (L), Posterior Tibialis (R), 2+: Carotid (L) PM, Carotid (R) PM, Radial (L), Radial (R), Dorsalis Pedis (L) PM, Dorsalis Pedis (R) PM - GI/Abdominal GI/Abdominal exam: Present: distended, normal bowel sounds, soft, tenderness Additional comments: + stools - Extremities Exam Extremities exam: Present: full ROM Additional comments: General weakness - Back Exam Back exam: Present: vertebral tenderness - Neurological Exam Neurological exam: Present: alert, oriented X3 - Psychiatric Psychiatric exam: Present: flat affect - Skin Skin exam: Present: pallor, warm Palliative Quality Palliative Quality: Screen for Code Status: Yes, Screen for Goals of Care: Yes, Screen for Pain: Yes, Screen for Nausea/Vomitting: Yes Code Status: 01/03/19 15:40 Resuscitation Status: Active [RES] Routine Comment: Resuscitation Status: Full Code - Labs CBC & Chem 7: 01/05/19 05:09 01/05/19 05:09 Labs: Laboratory Results - last 24 hr 01/04/19 01/05/19 01/05/19 16:35 05:09 05:09 WBC 9.1 RBC 2.97 L Hgb 9.7 L D Hct 31.3 L MCV 105.4 H MCH 32.7 MCHC 31.0 L RDW 24.2 H Plt Count 65 L MPV 11.4 Immature Gran % 1.3 Seg Neutrophils % 78.8 Lymphocytes % 12.1 Monocytes % 7.4 Eosinophils % 0.1 Basophils % 0.3 Neutrophils # 7.2 Lymphocytes # 1.1 Monocytes # 0.7 Eosinophils # 0.0 Basophils # 0.0 Immature Plt Fraction 4.7 Anisocytosis 2+ A Sodium 137 Potassium 4.2 Chloride 109 H Carbon Dioxide 21 L BUN 4 L Creatinine 0.38 L Est GFR ( Amer) > 60 Est GFR (Non-Af Amer) > 60 BUN/Creatinine Ratio 11 Glucose 93 Calculated Osmolality 281 Calcium 12.0 H Phosphorus 1.9 L Magnesium 2.3 Ammonia Blood Type A POSITIVE Antibody Screen NEGATIVE Crossmatch See Detail 01/05/19 05:09 WBC RBC Hgb Hct MCV MCH MCHC RDW Plt Count MPV Immature Gran % Seg Neutrophils % Lymphocytes % Monocytes % Eosinophils % Basophils % Neutrophils # Lymphocytes # Monocytes # Eosinophils # Basophils # Immature Plt Fraction Anisocytosis Sodium Potassium Chloride Carbon Dioxide BUN Creatinine Est GFR ( Amer) Est GFR (Non-Af Amer) BUN/Creatinine Ratio Glucose Calculated Osmolality Calcium Phosphorus Magnesium Ammonia 44 Blood Type Antibody Screen Crossmatch - ABG Interpretation ABG results: PT/INR, D-dimer PT 21.8 Seconds (9.4-12.1) H 01/04/19 08:01 Palliative Scale - Palliative Performance Scale How ambulatory is this patient?: Mainly in bed What is patient's level of activity and evidence of disease?: Unable hobby/housework, Significant disease How much self-care assistance does patient require?: Considerable assistance required How much oral intake does the patient have?: Normal or reduced What is this patient's level of consciousness?: Full or confusion Palliative Performance Score: 60 % Consult Discharge Plan - Plan Referrals: Terra De La Garza CNP [Primary Care Provider] -
[2019-01-05] MEDS: Ondansetron 4 MG/2 ML VIAL IVP PRN (14:39)
--- NOTE | 2019-01-05 16:04 | Oncology Inp Progress Note ---
<Tom Silvestre - Last Filed: 01/05/19 16:01> Date of Encounter: 01/05/19 Time of Encounter: 09:20 (1) Esophageal cancer Current Visit: No Status: Chronic Assessment and plan: Poorly differentiated Esophageal cancer with extensive metastatic disease Metastatic disease to Liver, retroperitoneum. PET/CT imaging with hypermetabolic uptake in the distal esophagus Received cycle #1 of FOLFOX 11/21/2018 Received Oxaliplatin 12/20/18 Treatment intent has been palliative in the past At this time, hospice may be most beneficial to patient, however she has been resistant in the past Family meeting with Dr. Sharp will occur this afternoon, and further discussion may be found in his attestation below. Qualifiers: Malignant neoplasm of esophagus location: lower third Qualified Code(s): C15.5 - Malignant neoplasm of lower third of esophagus (2) Weakness Current Visit: Yes Status: Acute Assessment and plan: Weakness, secondary to advanced metastatic disease. The patient does have HH, however likely will continue to have deconditioning due to poor PO intake and poor nutritional status Physical therapy and occupational may be beneficial to the patient if she can tolerate Patient also does have anemia which may be symptomatic, Hgb 9.7 s/p transfusion Nutrition consult recommended for nutritional deficiencies (3) Ascites Current Visit: Yes Status: Chronic Assessment and plan: Ascites due to metastatic disease to the liver Patient underwent paracentesis and feels better Qualifiers: Ascites type: malignant Qualified Code(s): R18.0 - Malignant ascites Oncology: Subj Interval history: Patient is resting in bed at time of examination. She is significantly more comfortable today than she was yesterday. She did get a unit of blood which she says has helped her energy level significant. She has been able to get up and move around a little bit more. She says that her abdominal pain has improved following her paracentesis. Palliative care did speak with her and she says that she would like to speak with Dr. Sharp before discussing any further. She would not like to take any medications altered her mood. She has no other acute complaints today. She does continue to have significantly low phosphorus and magnesium. - Constitutional Exam: Gen: Vitals noted. No acute distress. Appears frail Eyes: anicteric sclerae, moist conjunctivae HENT: Atraumatic; oropharynx clear with moist mucous membranes Chest: A-port in place Abdomen: Quite distended, soft. S/p paracentesis. Tender to palpation generally MSK: ROM intact, no joint swelling noted Extremities: no BLE edema, nontender calf, no cyanosis or clubbing Skin: Normal temperature, turgor and texture; no rash, ulcers or subcutaneous nodules Neuro: moves all extremities, no focal deficits. Psych: Depressed mood. A&Ox3 Oncology: Obj Data - Labs CBC & Chem 7: 01/05/19 05:09 01/05/19 05:09 Consult Discharge Plan - Plan Referrals: Terra De La Garza, [employer] [Primary Care Provider] - Inpatient Charges Provider: Dr. Kian Sharp <LilaNasir S - Last Filed: 01/05/19 22:14> Date of Encounter: 01/05/19 Oncology: Obj Data - Labs CBC & Chem 7: 01/05/19 05:09 01/05/19 05:09 Inpatient Charges Provider: Dr. Kian Sharp Follow up - Inpatient: [id number] - Attending Attestation I examined this patient and my medical decision-making was reviewed with the res ident. I agree with the documented findings, disposition and treatment plan as described except to the extent set forth below. Ms. 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 She has developed hepatic encephalopathy from her liver failure. 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 Her PS has declined and she requires assistance with ADLs. This was reviewed with the patient today. She is not a treatment candidate and hospice is indicated; there are no other treatment options. We discussed this today, and I recommend d/c with family for hospice care. Palliative care met with the patient as well and is assisting with the process. Hopeful d/c soon. I will not schedule f/u with me but will be available if needed.
[2019-01-05] MEDS: Mirtazapine 15 MG TABLET PO SCH (20:28)
[2019-01-06] MEDS: *HR* LORazepam 0.5 MG TABLET PO PRN ×2 (04:44→20:17)
[2019-01-06] MEDS: Ketorolac 15 MG/ML VIAL IVP PRN ×2 (04:44→10:37)
[2019-01-06 05:31] LABS: Fluid Source for Albumin ASCITES
[2019-01-06] MEDS: Lactulose Oral Soln 20 GM/30 ML UDC PO SCH ×3 (07:56→20:17)
--- NOTE | 2019-01-06 08:57 | Internal Med Progress Note ---
Hospitalist Progress Note - Encounter Date of Encounter: 01/06/19 Time of Encounter: 09:00 - Exam Vitals: Temp Pulse Resp BP Pulse Ox 97.4 F L 110 15 103/68 98 01/06/19 07:35 01/06/19 07:35 01/06/19 07:35 01/06/19 07:35 01/06/19 08:01 Exam: General appearance: Present: A&O X 3, no acute distress Head exam: Present: normocephalic Respiratory exam: Present: CTAB. Absent: accessory muscle use, rales, rhonchi, wheezes Cardiovascular exam: Present: RRR, +S1, +S2. Absent: diastolic murmur, gallop, rubs, systolic murmur GI/Abdominal exam: Worsening abdominal distention Extremities exam: positive edema bilaterally Neurological exam: Present: alert, oriented X3, no focal deficits. Absent: altered - Assessment and Plan (1) Decompensated liver disease Current Visit: Yes Status: Acute Assessment and Plan: Pt comes in with worsening abdominal distention and elevated ammonia levels in the setting of advanced esophageal cancer with liver metastases Will obtain paracentesis. Cover empiricallly for SBP with ceftriaxone. IV fluids due to lactic acidosis which may be secondary to malignancy vs sepsis On lactulose for hyperammonemia Improved this am s/p removal of 2L ascitic fluid. Peritoneal fluid not suggestive of SBP. Will give albumin for hypotension Goals of care. Palliative care consulted regarding possible hospice vs SNF placement as patient lives alone (2) Sepsis Current Visit: Yes Status: Acute Assessment and Plan: Pt has weakness and confusion with lactic acidosis , query sepsis from UTI vs SBP Etiology of lactic acidosis could also be secondary to malignancy. Obtain cultures both urine, and blood, and peritoneal fluid analysis Continue ceftriaxone for possible UTI. peritoneal fluid analysis not suggestive of SBP Will d/c ceftriaxone as urine cultures showed no growth (3) Hypercalcemia Current Visit: Yes Status: Acute Assessment and Plan: Hypercalcemia likely secondary to malignancy. calcium was 13 at [facility] Calcium trended up to 12 today. Will give one dose of zoledronic acid and hydrate (4) Liver masses Current Visit: Yes Status: Acute Assessment and Plan: Oncology follow up. Continue chemotherapy (5) DVT prophylaxis Current Visit: Yes Status: Acute Assessment and Plan: heparin sc - Time Spent with Patient Total time spent is greater than 50% in coordination of care (as documented) at patient's floor/unit and/or counseling patient: Internal Medicine: Result - Labs CBC & Chem 7: 01/05/19 05:09 01/05/19 05:09 - ABG Interpretation ABG results: PT/INR, D-dimer PT 21.8 Seconds (9.4-12.1) H 01/04/19 08:01 Consult Discharge Plan - Plan Referrals: Terra De La Garza, BLANCO [Primary Care Provider] - (2) Sepsis Qualifiers: Sepsis type: sepsis due to unspecified organism Qualified Code(s): A41.9 - Sepsis, unspecified organism
[2019-01-06 09:55] LABS: Basophils % 0.2 %; Hemoglobin 10.1 g/dL (11.5-15.4); Lymphocytes % 17.1 %; Red Cell Distribution Width 23.9 % (11.5-14.5)
[2019-01-06 09:57] LABS: Immature Granulocytes % 1.3 % (0-4); Immature Platelets 4.6 % (1.1-6.1); Lymphocytes # 1.5 K/mcL (0.6-4.6); Mean Corpuscular HGB Conc 31.6 g/dL (31.6-35.5); Mean Corpuscular Hemoglobin 33.2 pg (28.0-33.3); Mean Corpuscular Volume 105.3 fL (83.0-100.0); Monocytes # 0.7 K/mcL (0.0-1.3); Monocytes % 8.1 %; Neutrophils # 6.6 K/mcL (1.6-8.9); Red Blood Count 3.04 M/mcL (3.82-4.97); Segmented Neutrophils % 73.3 %
[2019-01-06 10:12] LABS: BUN/Creatinine Ratio 10 (6-26); Blood Urea Nitrogen 4 mg/dL (6-20); Calcium 12.1 mg/dL (8.6-10.3); Carbon Dioxide 22 mEq/L (23-29); Chloride 106 mEq/L (98-107); Glucose 81 mg/dL (70-105); Magnesium 2.3 mg/dL (1.6-2.6); Osmolality,Calculated 274 (280-300); Phosphorous 2.2 mg/dL (2.7-4.5); Sodium 134 mEq/L (136-145); eGFR For African Americans > 60 (> 60); eGFR For Non-African Americans > 60 (> 60)
[2019-01-06 10:23] LABS: Anisocytosis 1+ (Not Present); Platelet Count 54 K/mcL (140-400)
[2019-01-06] MEDS: Ondansetron 4 MG/2 ML VIAL IVP PRN (10:37)
--- NOTE | 2019-01-06 11:45 | Discharge Summary ---
Orders not resulted at time of discharge: Pending orders 01/03/19 23:04 Culture,Blood [BC] Routine Date of Encounter: 01/06/19 Time of Encounter: 10:00 - Discharge Diagnosis (1) Decompensated liver disease Priority: Primary Status: Acute Assessment and Plan: 58 year old female with a pmh of esophageal carcinoma with liver metastases on palliative chemotherapy with recent multiple admissions presenting with complaints of weakness and falls for the last couple of days. Patient was supposed to see Dr Sharp today for a follow up today, but says she was feeling very tired and couldn't get up and called DR Sharp who asked her to either call hospice or call the squad to bring her to the ER. She reports having fallen twice in the last week due to weakness but denies passing out. A CT scan of the head showed no acute findings at [facility]. She was however noted to have a lactic acid of 3.0, an ammonia of 60 and a calcium of 13 and a leukocytosis of 14. She was started on Iv fluids and ceftriaxone and she was transferred here for further management. She came in with weakness and worsening abdominal distention and elevated ammonia levels in the setting of advanced esophageal cancer with liver metastases She had a paracentesis done which was not suggestive of SBP. She was howevre covered empirically for SBP with ceftriaxone. She had a persistent lactic acidosis which is likely secondary to malignancy. She improved on IV fluids and lactulose for herpecalcemia and hyperammonemia She met with palliative care and oncology and it was determined due to her advanced cancer and poor prognosis, hospice would be the best option for her. 35 minutes was spent discharging this patient (2) Sepsis Priority: Primary Status: Acute Qualifiers: Sepsis type: sepsis due to unspecified organism Qualified Code(s): A41.9 - Sepsis, unspecified organism; R65.20 - Severe sepsis without septic shock (3) Hypercalcemia Priority: Primary Status: Acute (4) Liver masses Priority: Primary Status: Acute (5) DVT prophylaxis Priority: Primary Status: Acute Hospital course: Ms. Montgomery is a 58 year old female - Time Spent with Patient Total time spent providing and/or coordinating discharge services: - Discharge Medications Prescriptions: Continued Brompheniramine/Pseudoephed/Dm [Bromfed Dm Cough Syrup] 5 ml PO Q48H Montelukast [Singulair] 10 mg PO HS Omeprazole [PriLOSEC] 40 mg PO DAILY LORazepam [Ativan] 0.25 mg PO TID PRN PRN Reason: Anxiety Nicotine Patch [Nicoderm] 14 mg TD DAILY 21 Days #21 [email or web address] Mirtazapine [Remeron] 7.5 mg PO HS 30 Days #15 tablet Lidocaine/Prilocaine [Emla] 1 appl TP AD #1 tube Nystatin [Nystatin Suspension] 500,000 units PO QID #120 ml Docusate [Colace] 15 - 30 ml PO DAILY PRN PRN Reason: Constipation Potassium Chloride 15 ml PO DAILY Sucralfate [Carafate] 1 gm PO QIDAC PRN #60 tablet PRN Reason: Belching Ondansetron ODT [Zofran ODT] 4 mg SL Q6HR PRN PRN Reason: Nausea And Vomiting Home Medications: Brompheniramine/Pseudoephed/Dm [Bromfed Dm Cough Syrup] 5 ml PO Q48H 10/28/18 [History] Montelukast [Singulair] 10 mg PO HS 10/28/18 [History] Omeprazole [PriLOSEC] 40 mg PO DAILY 10/28/18 [History] LORazepam [Ativan] 0.25 mg PO TID PRN 10/29/18 [History] Nicotine Patch [Nicoderm] 14 mg TD DAILY 21 Days #21 patch.[email or web address] 11/16/18 [Rx] Lidocaine/Prilocaine [Emla] 1 appl TP AD #1 tube 12/06/18 [Rx] Mirtazapine [Remeron] 7.5 mg PO HS 30 Days #15 tablet 12/06/18 [Rx] Nystatin [Nystatin Suspension] 500,000 units PO QID #120 ml 12/20/18 [Rx] Docusate [Colace] 15 - 30 ml PO DAILY PRN 12/21/18 [History] Potassium Chloride 15 ml PO DAILY 12/21/18 [History] Sucralfate [Carafate] 1 gm PO QIDAC PRN #60 tablet 12/24/18 [Rx] Ondansetron ODT [Zofran ODT] 4 mg SL Q6HR PRN 01/03/19 [History] Allergies/Adverse Reactions: Allergy/AdvReac Type Severity Reaction Status Date / Time Bleach (Sodium Hypochlorite) AdvReac Rash Verified 01/04/19 13:58 fexofenadine [From Jessica-D] AdvReac See Verified 01/04/19 13:58 Comments latex AdvReac Redness of Verified 01/04/19 13:58 Skin pseudoephedrine AdvReac See Verified 01/04/19 13:58 [From Jessica-D] Comments sulfamethoxazole AdvReac See Verified 01/04/19 13:58 [From Bactrim] Comments trimethoprim [From Bactrim] AdvReac See Verified 01/04/19 13:58 Comments Date of admission: 01/03/19 15:47 Primary care physician: Terra De La Garza CNP Consults: 01/03/19 16:07 Consult to Oncology Hematology [CONS] Routine Consulting Provider: Nasir Sharp Reason for Consult: liver cancer Call Completed: No 01/03/19 16:44 Consult to Palliative Care [CONS] Routine Comment: Consulting Provider: Palliative Care Tarah Reason for Consult: advance directives, code status, goals of care- advanced liver cancer Call Completed: No 01/05/19 09:05 Consult to Nutrition [CONS] Routine Comment: Consulting Provider: NUTRITION Reason for Dietary Consult: PO Supplementation - Constitutional Vitals: Temp Pulse Resp BP Pulse Ox 97.3 F L 113 15 105/66 99 01/06/19 10:13 01/06/19 10:13 01/06/19 10:13 01/06/19 10:13 01/06/19 10:13 Exam: General appearance: Present: A&O X 3, no acute distress Head exam: Present: normocephalic Respiratory exam: Present: CTAB. Absent: accessory muscle use, rales, rhonchi, wheezes Cardiovascular exam: Present: RRR, +S1, +S2. Absent: diastolic murmur, gallop, rubs, systolic murmur GI/Abdominal exam: Worsening abdominal distention Extremities exam: positive edema bilaterally Neurological exam: Present: alert, oriented X3, no focal deficits. Absent: altered - Patient Status Disposition: Hospice - Home Condition: Fair - Discharge Instructions Follow Up With: Terra De La Garza CNP [Primary Care Provider] -
[2019-01-06] MEDS: 0.9 % Sodium Chloride 1,000 ML IVC SCH (12:12)
[2019-01-06] MEDS: Mirtazapine 15 MG TABLET PO SCH (20:18)
[2019-01-06] MEDS: Ibuprofen 600 MG TABLET PO PRN (20:18)
[2019-01-07] MEDS ORDERED: *HR* LORazepam 0.5 MG TABLET PO ONE (00:12)
[2019-01-07] MEDS: Ibuprofen 600 MG TABLET PO PRN (06:42)
[2019-01-07] MEDS: Lactulose Oral Soln 20 GM/30 ML UDC PO SCH ×3 (07:49→22:00)
--- NOTE | 2019-01-07 07:57 | Internal Med Progress Note ---
Hospitalist Progress Note - Encounter Date of Encounter: 01/07/19 Time of Encounter: 08:00 - Subjective Interval History: No acute events overnight - Exam Vitals: Temp Pulse Resp BP Pulse Ox 97.4 F L 110 18 104/68 98 01/07/19 07:48 01/07/19 07:48 01/07/19 07:48 01/07/19 07:48 01/07/19 07:48 Exam: General appearance: Present: A&O X 3, no acute distress Head exam: Present: normocephalic Respiratory exam: Present: CTAB. Absent: accessory muscle use, rales, rhonchi, wheezes Cardiovascular exam: Present: RRR, +S1, +S2. Absent: diastolic murmur, gallop, rubs, systolic murmur GI/Abdominal exam: Worsening abdominal distention Extremities exam: positive edema bilaterally Neurological exam: Present: alert, oriented X3, no focal deficits. Absent: altered - Assessment and Plan (1) Decompensated liver disease Current Visit: Yes Status: Acute Assessment and Plan: Pt comes in with worsening abdominal distention and elevated ammonia levels in the setting of advanced esophageal cancer with liver metastases Will obtain paracentesis. Cover empiricallly for SBP with ceftriaxone. IV fluids due to lactic acidosis which may be secondary to malignancy vs sepsis On lactulose for hyperammonemia Improved this am s/p removal of 2L ascitic fluid. Peritoneal fluid not suggestive of SBP. Will give albumin for hypotension Goals of care. Palliative care and patient will be going home with hospice once home hospice is set up (2) Sepsis Current Visit: Yes Status: Acute Assessment and Plan: Pt has weakness and confusion with lactic acidosis , query sepsis from UTI vs SBP Etiology of lactic acidosis could also be secondary to malignancy. Obtain cultures both urine, and blood, and peritoneal fluid analysis Continue ceftriaxone for possible UTI. peritoneal fluid analysis not suggestive of SBP Will d/c ceftriaxone as urine cultures showed no growth (3) Hypercalcemia Current Visit: Yes Status: Acute Assessment and Plan: Hypercalcemia likely secondary to malignancy. calcium was 13 at [facility] Calcium trended up to 12 today. Will give one dose of zoledronic acid and hydrate (4) Liver masses Current Visit: Yes Status: Acute Assessment and Plan: Oncology follow up. Continue chemotherapy (5) DVT prophylaxis Current Visit: Yes Status: Acute Assessment and Plan: heparin sc - Time Spent with Patient Total time spent is greater than 50% in coordination of care (as documented) at patient's floor/unit and/or counseling patient: Internal Medicine: Result - Labs CBC & Chem 7: 01/06/19 09:41 01/06/19 09:41 Labs: Short CBC 01/06/19 Range/Units 09:41 WBC 9.0 (4.3-11.1) K/mcL Hgb 10.1 L (11.5-15.4) g/dL Hct 32.0 L (35.3-44.9) % Plt Count 54 L (140-400) K/mcL Neutrophils # 6.6 (1.6-8.9) K/mcL BMP 01/06/19 09:41 Sodium 134 L Potassium 4.0 Chloride 106 Carbon Dioxide 22 L BUN 4 L Creatinine 0.41 L Glucose 81 Calcium 12.1 H - ABG Interpretation ABG results: PT/INR, D-dimer PT 21.8 Seconds (9.4-12.1) H 01/04/19 08:01 Consult Discharge Plan - Plan Referrals: Terra De La Garza, [employer] [Primary Care Provider] - (2) Sepsis Qualifiers: Sepsis type: sepsis due to unspecified organism Qualified Code(s): A41.9 - Sepsis, unspecified organism; R65.20 - Severe sepsis without septic shock
--- NOTE | 2019-01-07 09:09 | Oncology Inp Progress Note ---
Date of Encounter: 01/07/19 Time of Encounter: 10:30 (1) Goals of care, counseling/discussion Current Visit: Yes Status: Acute Assessment and plan: There are no other therapeutic options remaining for this patient. Hospice care is appropriate. This was discussed with the patient and family over the past 3 days. Unfortunately, she does not recall this conversation and is requesting to go home, even AMA if needed. I tried to dissuade her from this, offering words of encouragement. She remains resistant to any recommendations and is having difficulty coming to terms with her state. In addition, encephalopathy appears present. I was unable to reach her daughter to help with d/c planning. I have started norco, and as of 9:45, she was ok with trying this. Lorazepam restarted as well. She may continue motrin. D/W nursing. (2) Esophageal cancer Current Visit: No Status: Chronic Assessment and plan: Patient is a very aggressive metastatic esophageal carcinoma. She clinically did not respond to first-line chemotherapy. She has multiple poor prognostic factors the tumors including hypercalcemia time of presentation, extensive m etastatic disease as well as likely peritoneal carcinomatosis. Patient's performance status is poor, ECOG performance status 3/4. I have recommended hospice care over the past 3 visits and patient has been resistant. At this time, there are no therapeutic options of benefit and hospice is indicated. Palliative care was met with the team and plan is for d/c with the daughter on hospice. This remains an ongoing discussion. Qualifiers: Malignant neoplasm of esophagus location: lower third Qualified Code(s): C15.5 - Malignant neoplasm of lower third of esophagus (3) Hypercalcemia Current Visit: Yes Status: Acute Assessment and plan: Hypercalcemia persists despite aggressive, freqeunt treatment with zoledronic acid. Improved with hydration. Would not pursue further intervention as she is asymptomatic and proceeding with comfort measures. Oncology: Subj Interval history: Ms. Montgomery is not feeling well this morning. She is having increased abdominal pain. However, nursing has had difficulty in medication management due to patient wishes. She is asking for something for pain but remains argumentative regarding what to take. She has motrin available but states that doesn't work. She does not want tramadol. Discussed norco, and after a 15 minute discussion, she agrees. She was to be d/c yesterday to her daughters on hospice but this has been delayed. Patient asking to go home and states "you can't hold me against my will" repeatedly despite never stating such. She does not recall conversations held on Tuesday. - Constitutional General appearance: mild distress - Head Head exam: Present: atraumatic, normal inspection, normocephalic - Eye Eye exam: Present: normal appearance, scleral icterus, conjuntiva pink - ENT ENT exam: Present: mucous membranes moist, normal exam, normal external ear exam, normal oropharynx - Neck Neck exam: Present: full ROM, normal inspection - Respiratory Respiratory exam: Present: decreased breath sounds - Cardiovascular Cardiovascular exam: Present: tachycardia - GI/Abdominal GI/Abdominal exam: Present: distended, firm, hypoactive bowel sounds, tenderness - Extremities Exam Extremities exam: Present: normal inspection, pedal edema - Neurological Exam Neurological exam: Present: alert, CN II-XII intact, no focal deficits Oncology: Obj Data - Labs CBC & Chem 7: 01/06/19 09:41 01/06/19 09:41 Consult Discharge Plan - Plan Referrals: Terra De La Garza CNP [Primary Care Provider] - Inpatient Charges Provider: Dr. Kina Sharp Follow up - Inpatient: [id number]
[2019-01-07] MEDS: *HR* LORazepam 0.5 MG TABLET PO PRN ×2 (09:57→22:00)
[2019-01-07] MEDS: Ondansetron ODT 4 MG TAB.RAPDIS SL PRN (13:39)
[2019-01-07] MEDS: *HR* HYDROcodone/Acet 5/325 mg TABLET PO PRN (19:11)
[2019-01-07] MEDS: Mirtazapine 15 MG TABLET PO SCH (22:01)
--- NOTE | 2019-01-08 08:33 | Internal Med Progress Note ---
Hospitalist Progress Note - Encounter Date of Encounter: 01/08/19 Time of Encounter: 08:00 - Subjective Interval History: No acute events overnight - Exam Vitals: Temp Pulse Resp BP Pulse Ox 97.7 F 118 17 104/71 98 01/08/19 06:45 01/08/19 06:45 01/08/19 06:45 01/08/19 06:45 01/08/19 06:45 Exam: General appearance: Present: A&O X 3, no acute distress Head exam: Present: normocephalic Respiratory exam: Present: CTAB. Absent: accessory muscle use, rales, rhonchi, wheezes Cardiovascular exam: Present: RRR, +S1, +S2. Absent: diastolic murmur, gallop, rubs, systolic murmur GI/Abdominal exam: Worsening abdominal distention Extremities exam: positive edema bilaterally Neurological exam: Present: alert, oriented X3, no focal deficits. Absent: altered - Assessment and Plan (1) Decompensated liver disease Current Visit: Yes Status: Acute Assessment and Plan: Pt comes in with worsening abdominal distention and elevated ammonia levels in the setting of advanced esophageal cancer with liver metastases Will obtain paracentesis. Cover empiricallly for SBP with ceftriaxone. IV fluids due to lactic acidosis which may be secondary to malignancy vs sepsis On lactulose for hyperammonemia Improved this am s/p removal of 2L ascitic fluid. Peritoneal fluid not suggestive of SBP. Will give albumin for hypotension Goals of care. Palliative care and patient will be going home with hospice once home hospice is set up Discharge today (2) Sepsis Current Visit: Yes Status: Acute Assessment and Plan: Pt has weakness and confusion with lactic acidosis , query sepsis from UTI vs SBP Etiology of lactic acidosis could also be secondary to malignancy. Obtain cultures both urine, and blood, and peritoneal fluid analysis Continue ceftriaxone for possible UTI. peritoneal fluid analysis not suggestive of SBP Will d/c ceftriaxone as urine cultures showed no growth (3) Hypercalcemia Current Visit: Yes Status: Acute Assessment and Plan: Hypercalcemia likely secondary to malignancy. calcium was 13 at [facility] Calcium trended up to 12 today. Will give one dose of zoledronic acid and hydrate (4) Liver masses Current Visit: Yes Status: Acute Assessment and Plan: Oncology follow up. Continue chemotherapy (5) DVT prophylaxis Current Visit: Yes Status: Acute Assessment and Plan: heparin sc - Time Spent with Patient Total time spent is greater than 50% in coordination of care (as documented) at patient's floor/unit and/or counseling patient: Internal Medicine: Result - Labs CBC & Chem 7: 01/06/19 09:41 01/06/19 09:41 - ABG Interpretation ABG results: PT/INR, D-dimer PT 21.8 Seconds (9.4-12.1) H 01/04/19 08:01 Consult Discharge Plan - Plan Referrals: Terra De La Garza, BLANCO [Primary Care Provider] - (2) Sepsis Qualifiers: Sepsis type: sepsis due to unspecified organism Qualified Code(s): A41.9 - Sepsis, unspecified organism; R65.20 - Severe sepsis without septic shock
[2019-01-08] MEDS: *HR* HYDROcodone/Acet 5/325 mg TABLET PO PRN ×2 (10:19→17:31)
[2019-01-08] MEDS: Lactulose Oral Soln 20 GM/30 ML UDC PO SCH (10:19)
[2019-01-08] MEDS: Ondansetron ODT 4 MG TAB.RAPDIS SL PRN (10:26)
[2019-01-08 14:24] VITALS: BP 100/66
--- NOTE | 2019-01-17 11:37 | Discharge Summary ---
Date of Encounter: 01/17/19 Time of Encounter: 12:00 - Discharge Diagnosis (1) Decompensated liver disease Priority: Primary Status: Acute Assessment and Plan: 8 year old female with a pmh of esophageal carcinoma with liver metastases on palliative chemotherapy with recent multiple admissions presenting with complaints of weakness and falls for the last couple of days. Patient was supposed to see Dr Sharp today for a follow up today, but says she was feeling very tired and couldn't get up and called DR Shrap who asked her to either call hospice or call the squad to bring her to the ER. She reports having fallen twice in the last week due to weakness but denies passing out. A CT scan of the head showed no acute findings at [facility]. She was however noted to have a lactic acid of 3.0, an ammonia of 60 and a calcium of 13 and a leukocytosis of 14. She was started on Iv fluids and ceftriaxone and she was transferred here for further management. She came in with weakness and worsening abdominal distention and elevated ammonia levels in the setting of advanced esophageal cancer with liver metastases She had a paracentesis done which was not suggestive of SBP. She was howevre covered empirically for SBP with ceftriaxone. She had a persistent lactic acidosis which is likely secondary to malignancy. She improved on IV fluids and lactulose for herpecalcemia and hyperammonemia She met with palliative care and oncology and it was determined due to her advanced cancer and poor prognosis, hospice would be the best option for her. 35 minutes was spent discharging this patient Patient was discharged on 01/08/19 (2) Sepsis Priority: Primary Status: Acute Qualifiers: Sepsis type: sepsis due to unspecified organism Qualified Code(s): A41.9 - Sepsis, unspecified organism; R65.20 - Severe sepsis without septic shock (3) Hypercalcemia Priority: Primary Status: Acute (4) Liver masses Priority: Primary Status: Acute (5) DVT prophylaxis Priority: Primary Status: Acute Hospital course: Ms. Montgomery is a 58 year old female - Time Spent with Patient Total time spent providing and/or coordinating discharge services: - Discharge Medications Prescriptions: Continued Brompheniramine/Pseudoephed/Dm [Bromfed Dm Cough Syrup] 5 ml PO Q48H Montelukast [Singulair] 10 mg PO HS Omeprazole [PriLOSEC] 40 mg PO DAILY LORazepam [Ativan] 0.25 mg PO TID PRN PRN Reason: Anxiety Nicotine Patch [Nicoderm] 14 mg TD DAILY 21 Days #21 patch.[email or web address] Mirtazapine [Remeron] 7.5 mg PO HS 30 Days #15 tablet Lidocaine/Prilocaine [Emla] 1 appl TP AD #1 tube Nystatin [Nystatin Suspension] 500,000 units PO QID #120 ml Docusate [Colace] 15 - 30 ml PO DAILY PRN PRN Reason: Constipation Potassium Chloride 15 ml PO DAILY Sucralfate [Carafate] 1 gm PO QIDAC PRN #60 tablet PRN Reason: Belching Ondansetron ODT [Zofran ODT] 4 mg SL Q6HR PRN PRN Reason: Nausea And Vomiting Home Medications: Brompheniramine/Pseudoephed/Dm [Bromfed Dm Cough Syrup] 5 ml PO Q48H 10/28/18 [History] Montelukast [Singulair] 10 mg PO HS 10/28/18 [History] Omeprazole [PriLOSEC] 40 mg PO DAILY 10/28/18 [History] LORazepam [Ativan] 0.25 mg PO TID PRN 10/29/18 [History] Nicotine Patch [Nicoderm] 14 mg TD DAILY 21 Days #21 patch.[email or web address] 11/16/18 [Rx] Lidocaine/Prilocaine [Emla] 1 appl TP AD #1 tube 12/06/18 [Rx] Mirtazapine [Remeron] 7.5 mg PO HS 30 Days #15 tablet 12/06/18 [Rx] Nystatin [Nystatin Suspension] 500,000 units PO QID #120 ml 12/20/18 [Rx] Docusate [Colace] 15 - 30 ml PO DAILY PRN 12/21/18 [History] Potassium Chloride 15 ml PO DAILY 12/21/18 [History] Sucralfate [Carafate] 1 gm PO QIDAC PRN #60 tablet 12/24/18 [Rx] Ondansetron ODT [Zofran ODT] 4 mg SL Q6HR PRN 01/03/19 [History] Allergies/Adverse Reactions: Allergy/AdvReac Type Severity Reaction Status Date / Time Bleach (Sodium Hypochlorite) AdvReac Rash Verified 01/04/19 13:58 fexofenadine [From Jessica-D] AdvReac See Verified 01/04/19 13:58 Comments latex AdvReac Redness of Verified 01/04/19 13:58 Skin pseudoephedrine AdvReac See Verified 01/04/19 13:58 [From Jessica-D] Comments sulfamethoxazole AdvReac See Verified 01/04/19 13:58 [From Bactrim] Comments trimethoprim [From Bactrim] AdvReac See Verified 01/04/19 13:58 Comments Date of admission: 01/03/19 15:47 Primary care physician: Terra De La Garza CNP Consults: 01/03/19 16:07 Consult to Oncology Hematology [CONS] Routine Consulting Provider: Nasir Sharp Reason for Consult: liver cancer Call Completed: No 01/03/19 16:44 Consult to Palliative Care [CONS] Routine Comment: Consulting Provider: Palliative Care Tarah Reason for Consult: advance directives, code status, goals of care- advanced liver cancer Call Completed: No 01/05/19 09:05 Consult to Nutrition [CONS] Routine Comment: Consulting Provider: NUTRITION Reason for Dietary Consult: PO Supplementation - Constitutional Vitals: Temp Pulse Resp BP Pulse Ox 97.8 F 56 17 100/66 99 01/08/19 14:20 01/08/19 14:20 01/08/19 14:20 01/08/19 14:20 01/08/19 14:20 Exam: General appearance: Present: A&O X 3, no acute distress Head exam: Present: normocephalic Respiratory exam: Present: CTAB. Absent: accessory muscle use, rales, rhonchi, wheezes Cardiovascular exam: Present: RRR, +S1, +S2. Absent: diastolic murmur, gallop, rubs, systolic murmur GI/Abdominal exam: Worsening abdominal distention Extremities exam: positive edema bilaterally Neurological exam: Present: alert, oriented X3, no focal deficits. Absent: altered - Patient Status Disposition: Hospice - Home Condition: Fair - Discharge Instructions Follow Up With: eTrra De La Garza CNP [Primary Care Provider] -
== END 2019-01-08 17:48 | disposition hospice, home (50) | DRG 871 ==
LOC: 3ANU
PROVIDERS: ADMIT Student in an Organized Health Care Education/Training Program; ATTEND Student in an Organized Health Care Education/Training Program